=== PATIENT | male | born 1930 | race Caucasian/White ===

== ENCOUNTER 2016-11-21 17:17 | Inpatient (IN) | payer MEDICARE, BC ==
[2016-11-21] MEDS ORDERED: Sodium Chloride 0.9% 100 ML IV SCH (18:00)
[2016-11-21] MEDS ORDERED: Sodium Chloride 0.9% 1,000 ML IV SCH ×2 (18:05→18:30)
[2016-11-21] MEDS ORDERED: Albuterol/Ipratropium 3.0-0.5 MG/3 ML Neb Soln NEB ONE (18:47)
[2016-11-21] MEDS ORDERED: Albuterol/Ipratropium 3.0-0.5 MG/3 ML Neb Soln ONE (18:49)
[2016-11-21] MEDS ORDERED: Ondansetron 4 MG/2 ML SDV IV PRN (19:03)
[2016-11-21] MEDS ORDERED: Albuterol/Ipratropium 3.0-0.5 MG/3 ML Neb Soln INH PRN (19:05)
[2016-11-21] MEDS ORDERED: proTAMINE 250 MG/25 ML SDV IVPUSH SCH (19:45)
[2016-11-21] MEDS ORDERED: Pantoprazole 40 MG Vial IVPUSH ONE (19:49)
[2016-11-21] MEDS ORDERED: Hydrocortisone Sodium Succinate 250 MG/2 ML SDV IV ONE (19:49)
[2016-11-21] MEDS ORDERED: Hydrocortisone Sodium Succinate 100 MG/2 ML SDV IVPUSH ONE (20:01)
[2016-11-21] MEDS: Albuterol/Ipratropium 3.0-0.5 MG/3 ML Neb Soln NEB SCH (22:16)
[2016-11-22] MEDS: [UNRECOGNIZED DRUG - OTHER] EYEBOTH SCH ×3 (01:20→21:36)
[2016-11-22] MEDS: Albuterol/Ipratropium 3.0-0.5 MG/3 ML Neb Soln NEB SCH ×4 (07:20→21:31)
[2016-11-22] MEDS ORDERED: PREDNISONE 20 MG PO SCH (08:00)
[2016-11-22] MEDS: Sodium Chloride 0.9% 1,000 ML IV SCH ×2 (08:38→18:43)
[2016-11-22] MEDS ORDERED: CYANOCOBALAMIN 1000 MCG PO SCH (09:00)
[2016-11-22] MEDS ORDERED: Aspirin 81 MG Tab.Chew**OWN MED PO SCH (09:00)
[2016-11-22] MEDS ORDERED: ATOVAQUONE PO SCH (09:00)
[2016-11-22] MEDS ORDERED: DIVALPROEX 125 MG PO SCH ×3 (09:00→09:05)
[2016-11-22] MEDS: methylPREDNISolone Sodium Succinate 125 MG/2 ML SDV IVPUSH SCH ×2 (09:40→18:00)
--- NOTE | 2016-11-22 11:51 | CR ---
INDICATION: Status post arrest. Pacemaker placement 2 weeks ago. Anterior chest wall bleed 2 weeks ago at surgical site. 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 Question aspiration. CHEST: An AP upright portable view of the chest 11/21/2016 was compared with and 10/30/2015, revealing patchy areas of central pneumonia and basilar pneumonia compatible with aspiration pneumonia. The dense infiltration seen on previous study of 11/04/2016 at the lower lung field on the left has improved somewhat with continued infiltrate in that area, however. No definite evidence of CHF is seen. Unipolar pacemaker lead is noted in place which is a new finding. The heart appears to be at the upper limits of normal in size. The aorta is slightly tortuous. Overlying EKG leads are noted. IMPRESSION: Findings are felt to be most compatible with aspiration pneumonia. There is some improvement in the degree of consolidation of the infiltrate at the lower lung field on the left, with new infiltrate in the upper and middle lung field on the right. MTDD
[2016-11-22] MEDS ORDERED: ESCITALOPRAM 10 MG PO SCH (12:00)
[2016-11-22] MEDS: cefTRIAXone 1 GM in Sodium Chloride 0.9% 50 ML IV SCH (14:55)
[2016-11-22] MEDS: metroNIDAZOLE/Normal Saline 500 MG in Premix Bag 1 BAG IV SCH ×2 (16:15→23:56)
[2016-11-22] MEDS: Pantoprazole 40 MG Tab.CR PO SCH ×2 (17:13→17:14)
[2016-11-22] MEDS ORDERED: Simvastatin 40 MG Tab *PTOM PO SCH (21:00)
[2016-11-22] MEDS: LORazepam 2 MG/ML MDV IVPUSH PRN (21:36)
--- NOTE | 2016-11-22 21:57 | HP ---
ADMISSION DATE: 11/21/2016 CHIEF COMPLAINT: Dysphagia with some mild hypoxemia. HISTORY OF PRESENT ILLNESS: This patient is an 86-year-old male with a previous history of chronic anxiety, depression, gastroesophageal reflux, and hypertension who was admitted after being seen in the emergency room with the above chief complaint. The patient has a rather interesting history, recently he developed some atrial fibrillation with a rapid ventricular response. He was cardioverted and was started on amiodarone and discharged home. Shortly thereafter, he went into cardiac and respiratory arrest. Apparently, ambulance was called, he was found to be in ventricular fibrillation and shocked x1. He presented to the emergency room and was transferred to the [facility] in [place] to his prime minister again. He then developed rather significant hypoxia had to be intubated and they felt that he was having lung toxicity from the amiodarone and was discontinued, and started on prednisone and Atovaquone. They also put a defibrillator in and started him on a beta yaritza. He was eventually extubated and the above-mentioned procedure drawn and he was discharged recently from the hospital. He has, however, had problems with a recurrent dysphagia and gastroesophageal reflux. He has been seen by Gastroenterology and recently [facility] Th[facility]. Apparently, he has had some Botox injections done in the past and recently had a cricomyotomy via Ear, Nose, and Throat. He apparently had good relief and was doing quite well until the last 2 days, noticed a progressive increase in inability to swallow. He said that on the day of admission he was not able to swallow at all. He had been seen in [place] by Cardiology at [facility] and they did not think dimension. When he returned, he was having difficulty even swallowing water and presented to the emergency room for evaluation. While there, chest x-ray was done, showing significant infiltrates in the right lung and seemed to be a resolving infiltrate in the left lung compared to previous x-rays done in October. They were concerned about aspiration pneumonia. He did have some mild hypoxia that improved with oxygen and a normal white count, however, because of the dysphagia and the above-mentioned findings, they felt hospitalization was appropriate and he was admitted. He denies any hemoptysis, hematemesis, or hematuria. He has had no chest pain. He apparently developed rather significant swelling and ecchymosis in the left chest area from his pacemaker placement and has been off anticoagulants because of that. He has had no further bleeding difficulties. His last INR apparently was elevated and he was to have one done today. His says that he has had problems with recurrent hyponatremia in the past and apparently he was taking mirtazapine during his last hospitalization in [facility], because of low sodium they discontinued it and switch him over to Lexapro, apparently the hyponatremia had resolved by the time he was discharged. No significant weight loss has been noted. His appetite previous to this had been quite good. He has had no other complaints or concerns. MEDICATIONS: Include; 1. Atovaquone 1500 mg daily. 2. Depakote 125 mg daily. 3. Lexapro 10 mg daily. 4. Metoprolol 25 mg one half tablet b.i.d. 5. Protonix 40 mg daily. 6. Prednisone 60 mg daily. 7. He takes Restasis eyedrops one drop in each eye b.i.d. 8. Cyanocobalamin 1000 mcg daily. 9. He is also on aspirin 81 mg daily. 10.DuoNeb q.i.d. p.r.n. 11.He is supposed to be on warfarin, he took his last dose on Monday at 2.5 mg, but had not taken any for sometime. 12.He takes a multivitamin daily. 13.Simvastatin 20 mg at bedtime. ALLERGIES: Apparently, the amiodarone and sulfa. SOCIAL HISTORY: He quit smoking 40 years ago. He uses alcohol rarely. PAST MEDICAL HISTORY: Other than that mentioned above includes upper GI endoscopy in 2010. He has had a previous tonsillectomy when he was quite young and hemorrhoid surgery many years ago. He has had a previous TUR of the prostate. He has had a number of colonoscopies last of which was in 2013 where he had a polypectomy done. He does have known diverticulosis without a previous history of diverticulitis. He has a longstanding history of depression and anxiety along with the recurrent hyponatremia as noted above. FAMILY HISTORY: Both parents have . The father in his 90s from old age. Mother in her 70s. He had 7 sisters and 1 brother. Brother from drinking too much. Three sisters have had of pulmonary disease. REVIEW OF SYSTEMS: Review of systems was discussed. Other than that mentioned above was unremarkable. PHYSICAL EXAMINATION: VITAL SIGNS: At this time, showed him to be afebrile. Initial blood pressure when he arrived in the emergency room was 172/74, pulse is 61 and regular, respirations were 19, O2 saturation on 4 L was 95%. GENERAL: Well-developed, well-nourished male who appears to be somewhat confused, but in no acute distress. HEENT: Head was normocephalic and atraumatic. Pupils are round, reactive to light and accommodation. Extraocular movements were intact. Sclerae and conjunctivae were clear. He has intraocular lenses bilaterally. TMs are both clear. Nasal passages were open without discharge. Pharynx and palate were unremarkable. There is no evidence of excessive secretions in his mouth and he is not spitting. He seems to swallow secretions quite normally when distracted. NECK: Supple. There is no jugular venous distention. I was unable to identify any neck masses. The trachea appears to be midline without excessive swelling or tenderness. Carotid pulses strong and equal without bruits. BACK: Straight. No deformities are noted. No spinous process tenderness was noted. CHEST: Revealed coarse upper airway rhonchi throughout both lung rehman. More so on the right than on the left. No expiratory wheezes. No retractions were noted at this time. No chest wall tenderness was noted, except on the left side where he has significant ecchymoses. There is swelling around the pacemaker battery in the left subclavian space with ecchymoses noted. There it is somewhat fluctuant, but without erythema or warmth. CARDIOVASCULAR: Revealed a normal S1 and S2 with a systolic ejection murmur heard best at the right upper sternal border. ABDOMEN: Soft. No specific point tenderness. There was no rebound or rigidity. Bowel sounds are present. No bruits are noted. No incisional scars were identified. EXTREMITIES: Without clubbing, no edema. No ulcerations or areas of breakdown. Mild fusiform. Swelling of the knees was noted without effusion, erythema, or warmth. NEUROLOGIC: He was mildly confused. He asked the same questions repeatedly. He knew he was in the hospital, could remember my name. Could tell me the month, but missed the year by one, could not tell me the day or date. LABORATORY DATA: Initial CBC when he arrived showed his hemoglobin to be 8.9, hematocrit 26.3, MCV was 90.1. His white count was 7600, with 97 segs, 1 lymphs, 2 monos. No bands were noted. Platelets were 163,000. ProTime INR was 3.15. His D-dimer was normal at 390. Blood gas showing a pH of 7.5, pCO2 of 36, PO2 of 66, bicarbonate 28. Sodium was 121, potassium of 4.4, chloride of 89, CO2 was 28, BUN is 18, creatinine 0.6, glucose 135, but it was random. Calcium was 8. Phosphorus was 2.5. Magnesium was a bit low at 1.6. Total bilirubin 1.6, AST of 31, ALT of 46, alkaline phosphatase was normal at 75, creatine kinase was low at 30, troponin was normal at 0.03. BNP was slightly elevated at 422. Total protein was 5.8, albumin of 3.1. Chest x-ray as noted above. EKG showed basically a sinus rhythm, no paced beats were identified. His rate was 58. There was no ST-segment changes indicative of ischemia. There is some poor R-wave progression anteriorly, but there was evidence of right ventricular hypertrophy. No acute changes were otherwise identified. IMPRESSION: 1. New onset of dysphagia of undetermined etiology. The patient, however, seems to be handling his secretions quite well, and at this time infiltrates are quite well. However, the infiltrates in his chest do indicate the possibility of aspiration pneumonia. His white count, however, is normal. He is afebrile. He is mildly hypoxic, but it is difficult to know whether possibly secondary to the previous amiodarone toxicity or not. 2. History of atrial fibrillation, currently in sinus rhythm. With a previous history of cardiac arrest and pacemaker placement. Again this may all be secondary to recent atrial fib and the amiodarone was given, he now appears to be in sinus and I do not see any paced beats at all, wondering if this was not a defibrillator that was placed rather than a pacemaker. 3. Hyponatremia, this seems to be a chronic recurrent problem possibly secondary to his medications. The emergency room physician talked to the family about the possibility of this being from his pituitary. I doubt that his electrolytes do not really support it, but apparently a morning serum cortisol has been ordered. 4. History of gastroesophageal reflux. 5. Previous history of depression and anxiety. I have talked to the patient's physician here in town. He apparently is a chronic water drinker, may be compulsive. We should be able to evaluate this fairly easily. PLAN: At least at this point, we need to concentrate on the patient's respiratory status. Oxygen is appropriate to maintain his hydration. We will keep him n.p.o. Started him on Protonix. I think until otherwise confirmed, when I cover him for aspiration pneumonia with an IV antibiotics and will get his sodium back up to where it should be with sodium replacement therapy and small doses of furosemide. I have a call into [facility] and will see what they say about his previous cricomyotomy and we will see if we can get a swallowing eval or may be esophagram done in the near future, but will wait and see. /[id number] /CHERISE
[2016-11-23] MEDS: methylPREDNISolone Sodium Succinate 125 MG/2 ML SDV IVPUSH SCH ×3 (01:50→17:44)
[2016-11-23] MEDS: Sodium Chloride 0.9% 1,000 ML IV SCH ×2 (03:49→14:55)
[2016-11-23] MEDS: Albuterol/Ipratropium 3.0-0.5 MG/3 ML Neb Soln NEB SCH ×4 (07:05→20:51)
[2016-11-23] MEDS: metroNIDAZOLE/Normal Saline 500 MG in Premix Bag 1 BAG IV SCH ×3 (08:45→23:48)
[2016-11-23] MEDS: [UNRECOGNIZED DRUG - OTHER] EYEBOTH SCH (08:50)
[2016-11-23] MEDS: LORazepam 2 MG/ML MDV IVPUSH PRN ×2 (12:23→20:53)
[2016-11-23] MEDS ORDERED: Pantoprazole 40 MG Vial IVPUSH ONE (12:28)
[2016-11-23] MEDS ORDERED: Metoprolol Tartrate 5 MG in Sodium Chloride 0.9% 50 ML IV SCH (12:30)
[2016-11-23] MEDS ORDERED: Iopamidol 755 Mg/ML 75 ML Bottle IV ONE ×2 (13:22→13:37)
[2016-11-23] MEDS: Metoprolol Tartrate 5 MG/5 ML SDV IVPUSH SCH ×3 (13:55→20:51)
[2016-11-23] MEDS: cefTRIAXone 1 GM in Sodium Chloride 0.9% 50 ML IV SCH (14:02)
--- NOTE | 2016-11-23 14:11 | CR ---
INDICATION: Dysphagia. SWALLOWING FUNCTION WITH VIDEO: 2 minutes 39 seconds videofluoroscopy time with DVD recording and various barium -tinged meals were utilized in evaluating the swallowing mechanism. The patient apparently has difficulty with initiating the swallowing mechanism. There is marked retention of materials within the valleculae as well as the piriform sinuses. Penetration occurred from the retained materials in the valleculae. Continued retention was present at the end of the examination. The piriform sinuses are asymmetrically large, apparently on the left, as previously, giving the appearance of a diverticulum. No Zenker's diverticulum is identified. MTDD
--- NOTE | 2016-11-23 14:30 | PN ---
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 He was admitted with what appeared to be an aspiration pneumonia versus the amiodarone lung toxicity and resultant hypoxemia. Cultures have been obtained. He was started on IV antibiotics for a presumed aspiration as he continued to complain of inability to swallow and spitting episodes. He also found to be significantly hyponatremic and hypomagnesemic, although that seems to have improving. He had a good night. He coughed up a large amount of mucus and says he feels considerably better. His white count was resizing last night, but his sodium was gradually improving. He seems to be less confused today and denies any pain. He has had no fever or chills. He said he slept relatively well. There has been no nausea or vomiting. He denies any other discomfort. Medications were reviewed. OBJECTIVE: GENERAL: He appears to be quite comfortable at this time and in no acute distress. VITAL SIGNS: Afebrile. Blood pressure today was 167/80, pulse is 89 and regular, respirations are 28, O2 saturation is 91-94% and he is on 11 L/minute via mask. HEENT: Unremarkable. Mucous membranes are pink and moist. Thyroid was not enlarged. Trachea is midline. No palpable masses were noted in and about the neck. CHEST: Revealed right side rhonchi and rales to be improved somewhat. The left side still has upper airway rhonchi and a few rales at the bases. No retractions were noted. CARDIOVASCULAR: Revealed a normal S1 and S2 and at this time, his rhythm is regular. ABDOMEN: Soft, somewhat obese, but nontender without organomegaly or masses. Bowel sounds are normal. EXTREMITIES: Showed no clubbing or edema. No ulcerations or areas of breakdown. LABORATORY DATA: Lab today revealed his white count down to 6500; his hemoglobin has dropped to 7.7, but we have been hydrating him; platelets were 112,000. He has 91 segs, 2 bands, 3 monos, 3 eosinophils are still in moderate amount of toxic granulation. His INR is up to 2.86. Sodium is up to 127, potassium of 4.0, creatinine is 0.6, BUN of 18. IMPRESSION: 1. Probable aspiration pneumonia with dysphagia of undetermined etiology. 2. Conversion of atrial fibrillation, complicated by what appeared to be amiodarone toxicity. Respiratory and cardiac arrest with placement of an automatic defibrillator. 3. Hyponatremia, improving. 4. Previous history of anxiety and depression. PLAN: We will continue his IV normal saline, and watch his sodium. Continue the IV antibiotics for his presumed aspiration and respiratory therapy will be continued. Await the results of the swallowing evaluation today, and we will proceed from there. /[id number] /MODL
--- NOTE | 2016-11-23 15:47 | CT ---
INDICATION: Severe dysphagia. CT SOFT TISSUE NECK: Spiral 2.5-mm axial sections were obtained through the neck with sagittal and coronal reconstructions and 75 mL Isovue-370 at 2 mL per second. Pleuroparenchymal changes are noted in the upper lung rehman visualized , compatible with pneumonia and pleuritis, or possibly pulmonary edema and CHF - correlate clinically. The patulous airway is noted with particularly prominent piriform sinus on the left, compared with the right. Retained contrast is noted in the piriform sinuses and also to a lesser extent in the valleculae. Calcified plaques are noted in the carotid arteries with areas of stenosis, perhaps greater than 50%, especially on the left in the internal carotid artery. No definite mass lesion was identified - no focal impingement by a mass is seen in the neck with special attention to the pharyngeal area. Report was given in person to Dr. Porter at approximately 1418 hours, 11/23/2016. DARRICK
[2016-11-23] MEDS: cycloSPORINE Ophth Drops U/D Box of 30 EYEBOTH SCH (20:52)
[2016-11-24] MEDS: Sodium Chloride 0.9% 1,000 ML IV SCH ×2 (00:56→08:57)
[2016-11-24] MEDS: Metoprolol Tartrate 5 MG/5 ML SDV IVPUSH SCH ×4 (01:00→13:16)
[2016-11-24] MEDS: LORazepam 2 MG/ML MDV IVPUSH PRN ×2 (01:45→12:21)
[2016-11-24] MEDS: methylPREDNISolone Sodium Succinate 125 MG/2 ML SDV IVPUSH SCH ×2 (02:40→10:37)
[2016-11-24] MEDS: Albuterol/Ipratropium 3.0-0.5 MG/3 ML Neb Soln NEB SCH ×2 (07:06→10:47)
[2016-11-24] MEDS ORDERED: Furosemide 40 MG/4 ML VIAL IVPUSH ONE (08:40)
[2016-11-24] MEDS: cycloSPORINE Ophth Drops U/D Box of 30 EYEBOTH SCH (09:04)
[2016-11-24] MEDS: metroNIDAZOLE/Normal Saline 500 MG in Premix Bag 1 BAG IV SCH (09:08)
[2016-11-24 11:25] VITALS: BP 153/61
--- NOTE | 2016-11-24 11:46 | PN ---
DATE SEEN: 11/24/2016 SUBJECTIVE: This is an 86-year-old gentleman with a history of what appears to be aspiration pneumonia, hyponatremia, and swallowing difficulties, is seen today for followup. He said he had a restful night, has really no complaints or concerns. No pain has been noted. His oxygen saturations are in the 90s, but he is still requiring a rebreather mask. He has not had much cough, some peripheral edema has been noted recently. He is still not able to swallow. OBJECTIVE: GENERAL: He appears to be comfortable, in no acute distress, remains afebrile. VITAL SIGNS: Pulse is 82 and regular, blood pressure 152/74, respirations are 28, O2 saturation is 86% on a rebreather. HEENT: Unremarkable. NECK: There is no jugular venous distention. LUNGS: He still has coarse rhonchi throughout both lung rehman with some basilar crackles. No retractions, no significant tachypnea. CARDIOVASCULAR: Reveals a normal S1 and S2 without murmur, rub, or gallop. ABDOMEN: Unremarkable. EXTREMITIES: He has a trace to 1+ edema in his upper extremities and lower extremities, but no calf pain, swelling, or tenderness. NEUROLOGIC: He still is mildly confused. Repeats his questions intermittently, but no focal neurologic deficits have been noted. LABORATORY DATA: His hemoglobin is 7.5, hematocrit of 22.2, white count is down to 8500, platelets are 115,000. His Protime INR was 3.43, and he has not had any Coumadin since Monday, and at that time, he had 2.5 mg. He still has a left shift on differential with 96 segs, 1 band, 2 lymphocytes, and 1 mono. Sodium is up to 130, potassium at 3.8, creatinine is down to 0.5, BUN of 21. Has a mild elevation in bilirubin at 1.5, AST was 30, ALT of 35. Total protein 5.2, albumin of 2.8. IMPRESSION: 1. Persistent swallowing difficulties with swallowing evaluation that shows no swallowing movement at all and a CT scan of his neck that was negative. Rule out cerebrovascular accident as an etiology. 2. 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 3. Previous history of atrial fibrillation, currently converted with a history of ablation and a pacemaker/defibrillator placement. 4. History of chronic anxiety with recurrent hyponatremia. PLAN: We discussed treatment options with the family. NG tube feeding has been recommended by Dr. Wolf and I agree. When presented to the family, they are quite concerned about this. I also talked about needing an MRI for evaluation for stroke, but apparently, we are not able to do it here at the hospital because of his defibrillator placement. They have requested transfer to [place], and I agree. I have talked to [facility] in [place], and they agreed to accept the patient as a transfer. Dr. Hernandez will be accepting the patient and will proceed with treatment there. /[id number] /CHERISE
--- NOTE | 2016-11-25 03:47 | DISCH ---
DISCHARGE DATE: 11/24/2016 DATE OF TRANSFER: 11/24/2016 REASON FOR ADMISSION: This is a 86-year-old male with a previous history of chronic anxiety and depression, gastroesophageal reflux, hypertension, and recent atrial fibrillation that had been converted with eventual cardiac arrest requiring pacemaker and defibrillator placement, was admitted with increasing dysphagia and hypoxia. He apparently had been unable to swallow even water per day prior to admission and presented to the emergency room. Chest x-ray was done showing significant infiltrates bilaterally indicative of possible aspiration pneumonia with significant hypoxia. He continued to have difficulty swallowing, in fact was unable to swallow anything and therefore was admitted for more aggressive therapy. Please see a copy of his H and P for further details. Initial hemoglobin was 8.9, hematocrit of 26.3, white count of 7600. He had a left shift. His INR was 3.13. On 8 L, his pH was 7.5, pCO2 was 36, pO2 was 66, and bicarbonate was 28. Sodium 121, potassium of 4.4, CO2 was 28, chloride was 89. His creatinine 0.6, BUN of 18. Mild elevation in the liver functions. Magnesium was 1.6. BNP was 422. Total protein 5.8, albumin of 3.1. Chest x- ray as noted above. EKG revealed sinus rhythm at a rate of 58 beats per minute. He had evidence of some right ventricular hypertrophy, but no acute ST-T segment changes indicative of ischemia. No paced beats could be identified. HOSPITAL COURSE: The patient was admitted because of evidence of aspiration. Cultures were obtained. He was started on methylprednisolone 125 mg IV q.8 hours along with metronidazole 500 mg IV q.8 hours and ceftriaxone 1 g IV q.24 hours. He was also placed on Protonix 40 mg IV daily and aggressive respiratory therapy with DuoNeb q.i.d. and p.r.n. the patient had no Coumadin given and his INR was followed. Oxygen was placed to keep his saturations greater than 90%. Because of his inability to swallow, he was kept n.p.o. and had the bed of his elevated. The following day, we did a swallowing evaluation to see if in fact he would not swallow anything. Apparently with initial swallow was some material going into the esophagus, but thereafter he would not swallow at all and all of the material collected in the vallecula and the vestibule in the hypopharynx. This was then suctioned out and a CT scan of his neck was done after consulting with his [facility] N[facility], and Throat doctor to make sure there is no occult infection or mass. This was read as negative. His hyponatremia was corrected with IV normal saline and improved to sodium of 130, potassium of 3.8. Creatinine remained stable at 0.5, BUN at 21. His INR with the antibiotic remington to 3.43. His hemoglobin dropped to 7.5. His initial anemia was thought to be secondary to large hematoma especially in the chest area around his pacemaker defibrillator. The drop in hemoglobin was attributed to rehydration. His cough improved, saturations remain unchanged, and because of the inability to swallow along with the above-mentioned and other problems, transfer to [place] was recommended. Consult with the [facility] in [place] was obtained and they agreed to accept him. He will be discharged there for further therapy. FINAL DIAGNOSIS: 1. Acute aspiration pneumonia with resultant hypoxemia. 2. Inability to swallow of undetermined etiology. 3. Hyponatremia, improved. 4. History of atrial fibrillation and possible amiodarone toxicity, complicated by previous cardiac arrest and pacemaker defibrillator insertion with resultant hematoma on the left chest and anemia. 5. History of chronic anxiety and recurrent hyponatremia thought to be secondary to his serotonin reuptake inhibitors. 6. History of hypertension. DISCHARGE DISPOSITION: He was discharged per ambulance to [facility] where further evaluation and treatment will be accomplished. /[id number] /CHERISE
--- NOTE | 2016-11-25 09:47 | ER ---
DATE SEEN: 11/21/2016 TIME SEEN: The patient was seen at 0521 hours. CHIEF COMPLAINT: Difficulty swallowing. 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 In October of 2015, he had dilation of esophagus and Botox shots. The resolution of his odynophagia and dysphagia persisted through May of 2016. On August 23, he had a cricopharyngotomy performed by Dr. Wolf, ENT, [facility]. On 10/04/2016, the patient had a cardioversion for atrial fibrillation and was placed on 800 mg of amiodarone a day. This resulted in severe complications. This was consequently decreased slowly, discontinued altogether, and replaced by another agent, atovaquone 10 mg. On 10/30/2016 through 11/04/2016, the patient was hospitalized again, and pacemaker and ICD were placed. On 11/19/16, he had onset (2 days ago) of difficulty swallowing, odynophagia, and dysphagia. He had a" terrible time getting my pills down" and was unable to eat. He has been drinking small sips of water, but sometimes even the water will come up. He did have a protein supplement drink but would not swallow it. On 11/20/16, the patient had onset of confusion. His felt this was a recurrence of the confusion that he seems to have every time he has low sodium. "Every time the sodium goes down, he gets confused." The patient has not had food for 2 days. He had a half a bottle of Ensure this morning, most of it vomited up. There is a strong concern for aspiration. The patient continues to use warfarin. PAST MEDICAL HISTORY: Dyslipidemia; atrial fibrillation, treated with Coumadin since 2015; GERD; dysphagia with cricopharyngotomy (I discussed the patient's status with Dr. Wolf); seizures; pernicious anemia; dilation of esophagus; cardioversion; pacemaker placement; ICD placement; decreased hearing. PHYSICAL EXAMINATION: GENERAL: The patient is communicative. He has extensive ecchymosis of left chest over the very prominent pacemaker site. HEENT: PERRLA, intact. No masses in the neck. Pharynx without erythema. It is dry. Mucosa dry. VITAL SIGNS: Blood pressure, see chart; heart rate 58.LUNGS rale in lungs bilaterally ABDOMEN: no guarding , abdomen is soft , bowel sound noted. EXTREMITIES: No edema. no linear vascular tenderness. NEURO: DTR'S hypoactive, uvula midline, gag in plale, shrugs shoulder. CN 2-10 intact but decreased hearing. No past pointing, no dysmetria, no pronator drift. DATA REVIEWED: No evidence for atrial fibrillation. Prolonged MO interval. RSR prime in V1, V2, possible RVH or right VCD. Nonspecific ST changes. Chest x-ray: Interstitial infiltrate noted in the lungs. LABORATORY STUDIES: White count 7,600, PMNs 97, bands negative, lymphs 1, monos 2. Arterial blood gas pH of 7.50, pCO2 of 36, pO2 of 66, bicarb 28, oxygen saturation 95%, base excess 4.5. Sodium has serially progressively gone down since 10/06/2016 from 127 to 128 on 11/04/2016, and today it is 121 with associated hypochloremia, going from 92 to 89. BUN/creatinine ratio 30, suggests severe dehydration. Creatinine 0.6, BUN 18. GFR greater than 60. Calcium low at 8.0, magnesium low at 1.6, bilirubin 1.6, AST 31, ALT 46. Troponin 0.03. BNP 422. Albumin low, at 3.1; protein low at 5.8. TSH not performed today. ASSESSMENT: 1. Interstitial pneumonia, aspiration pneumonia. 2. Hyponatremia, rule out adrenal insufficiency from chronic use of steroids. 3. Hyponatremia and hypochloremia, chronic, rule out salt-losing nephropathy. 4. Elevated enzymes with mild hepatitis. 5. Hypoxia with tachypnea, compensated with respiratory alkalosis. 6. No tightness. 7. No evidence for myocardial infarction. 8. No evidence of congestive heart failure. 9. Hypomagnesemia, low phosphorus, etiology indeterminate, possibly secondary to decreased p.o. intake. Patient Status: Needs to be admitted for acute care. Status discussed with Dr. Wolf. At present, admit for observation and hydration. Start antibiotic therapy. Protonix IV, Zofran 4 mg IV, plus 1000 mL normal saline, DuoNeb, start antibiotics. The patient admitted to Dr. Porter's service. Status discussed with Say. No beds available. The patient admitted for treatment of aspiration pneumonia. /[id number] ANGELICA/CHERISE [place]
--- NOTE | 2016-11-28 14:49 | ER ---
DATE SEEN: 11/21/2016 ADDENDUM: Cortisone level 4.4 mcg (2.7-18.4). Aldosterone 10.8 ng/dL (less than 39). This suggests the patient has normal renal function and perhaps a low normal aldosterone may have something to do with his low sodium. /[id number] ANGELICA/CHERISE
== END 2016-11-24 12:30 | DRG 178 ==
LOC: FB.ED 17:17 → FB.MS 18:53 → FB.ED 18:55 → FB.MS 18:58 → OBSVTOIN 11-23 11:39
PROVIDERS: ADMIT Emergency Medicine; ATTEND Family Medicine
DX: J69.0 Pneumonitis due to inhalation of food and vomit (principal); E87.1 Hypo-osmolality and hyponatremia; K75.9 Inflammatory liver disease, unspecified; F41.8 Other specified anxiety disorders; E83.42 Hypomagnesemia; K21.9 Gastro-esophageal reflux disease without esophagitis; I10 Essential (primary) hypertension; I48.91 Unspecified atrial fibrillation; Z95.0 Presence of cardiac pacemaker; Z79.01 Long term (current) use of anticoagulants; Z79.82 Long term (current) use of aspirin; Z79.52 Long term (current) use of systemic steroids; Z87.891 Personal history of nicotine dependence; R09.02 Hypoxemia; R06.82 Tachypnea, not elsewhere classified
CPT/HCPCS: 36415 ×3; 36600; 71010; 74230; 80048 ×2; 80053; 82088; 82533; 82550; 82803; 83735; 83880; 84100; 84484; 85025 ×4; 85379; 85610 ×3; 93005; 94150 ×2; 94640 ×6; 96361 ×4; 96365; 96366; 96367; 96375 ×2; 96376 ×2; 99284; A9270 ×2; C9113; G0378 ×2; J0696; J1720; J2060; J2930 ×4; J7040 ×4; J7050; J7620 ×8; 70491; 71020; 92611-GN; 96374; J1940; J3490; Q9967

== ENCOUNTER 2016-12-02 08:14 | Inpatient (IN) | payer MEDICARE, BC ==
[2016-12-05] MEDS ORDERED: Docusate Sodium Liquid 50 MG/5 ML ML 473 ML Bottle GTUBE PRN (17:15)
[2016-12-05] MEDS ORDERED: diphenhydrAMINE 12.5 MG/5 ML Liquid ML (473 ML Bottle) GTUBE PRN (17:15)
[2016-12-05] MEDS ORDERED: Acetaminophen 500 MG Tab GTUBE PRN (17:15)
[2016-12-05] MEDS ORDERED: OMEPRAZOLE 20 MG GTUBE SCH (21:00)
[2016-12-05] MEDS ORDERED: Simvastatin 40 MG Tab GTUBE SCH (21:00)
[2016-12-05] MEDS: Amoxicillin/Clavulanate K 875-125 MG Tab GTUBE SCH (21:33)
[2016-12-05] MEDS: Valproic Acid 250 MG/5 ML Syrup ML (473 ML Bottle) GTUBE SCH (21:34)
[2016-12-05] MEDS ORDERED: diphenhydrAMINE 12.5 MG/5 ML Liquid ML (473 ML Bottle) PO ONE (21:38)
[2016-12-05] MEDS: Melatonin 3 MG Tab GTUBE SCH (22:00)
[2016-12-06] MEDS: predniSONE 20 MG Tab GTUBE SCH (08:52)
[2016-12-06] MEDS: Amoxicillin/Clavulanate K 875-125 MG Tab GTUBE SCH ×2 (08:52→20:46)
[2016-12-06] MEDS: Escitalopram 10 MG Tab GTUBE SCH (08:52)
[2016-12-06] MEDS: Phytonadione 100 MCG Tab PO SCH (08:53)
--- NOTE | 2016-12-06 09:18 | PCM.HP ---
H&P History of Present Illness - General Date of Service: 12/06/16 Admit Problem/Dx: Admission Diagnosis/Problem Admission Diagnosis/Problem Pneumonia Source of Information: Patient, Family, Old records - History of Present Illness Initial Comments - Free Text/Narative: This is an 86-year-old male that was admitted from [facility] for rehabilitation. He was admitted there for respiratory distress , due to amiodarone. He needed up to 15 L of oxygenation but is now down to only 2 L. He also had a.GI bleed, a normal upper endoscopy except for gastritis. He also has a fibrillation he takes Coumadin. He complains of feeling generally weak and able to ambulate independently hence the need for sitting bed admission for physical strengthening. During the hospital admission, he has problems with insomnia, eventually needing Benadryl to help sleep. He is a severely depressed and keeps ruminating about . He has hypertension that is stable , and dysphagia for which no cause was identified. He had a PEG tube placed for feeding. During that hospital stay, pneumonia was identified and treated appropriately, he would be finishing a course of Augmentin for 5 days in this admission. - Related Data Allergies/Adverse Reactions: Allergies Allergy/AdvReac Type Severity Reaction Status Date / Time amiodarone Allergy Cardiac Verified 12/05/16 16:54 Arrest Sulfa (Sulfonamide Allergy Hives Verified 12/05/16 16:54 Antibiotics) Home Medications: Home Meds Atovaquone 1,500 mg GTUBE DAILY 11/21/16 [History] Escitalopram [Lexapro] 10 mg GTUBE DAILY 11/21/16 [History] Prednisone [IJD: predniSONE] 40 mg GTUBE DAILY 11/21/16 [History] Warfarin Sodium [Jantoven] 2.5 mg GTUBE ASDIRECTED 11/21/16 [History] Simvastatin [Zocor] 20 mg GTUBE BEDTIME 11/22/16 [History] Acetaminophen [Mapap] 500 mg GTUBE Q4H PRN 12/05/16 [History] Amoxicillin/Clavulanate K [Augmentin 875-125 MG] 1 tab GTUBE BID 12/05/16 [ History] Docusate Sodium [Docu Liquid] 100 mg GTUBE BID PRN 12/05/16 [History] Melatonin 12 mg GTUBE BEDTIME 12/05/16 [History] Omeprazole Suspension 20 mg GTUBE BID 12/05/16 [History] Phytonadione [Vitamin K] 100 mcg GTUBE DAILY 12/05/16 [History] Sodium Chloride 0.9% [Saline Flush] 10 ml FLUSH DAILY 12/05/16 [History] Valproic Acid [Depakene Syrup] 125 mg GTUBE BEDTIME 12/05/16 [History] diphenhydrAMINE [Benadryl] 50 mg GTUBE BEDTIME PRN 12/05/16 [History] Past Medical History HEENT History: Reports: Hard of hearing, Other (see below) Other HEENT History: wears glasses Cardiovascular History: Reports: High cholesterol, Hypertension, Pacemaker, Other (see below) Other Cardiovascular History: New Atrial Fibrillation, dx Fall 2015, placed on Coumadin. Cardioversion 10/24/2016, cardiac arrest 11/07/2016, pacer/ICD placement 10/2016 Respiratory History: Reports: Other (see below) Other Respiratory History: Bilateral pneumonia dx 11/10/16 Gastrointestinal History: Reports: Gastritis, GERD, Other (see below) Other Gastrointestinal History: GASTRODUODENITIS; ACHALASIA OF THE CRICOPHARYNGEUS MUSCLE; DIVERTICULITIS Musculoskeletal History: Reports: Other (see below) Other Musculoskeletal History: WRIST ARTHRITIS Neurological History: Reports: Seizure, Other (see below) Other Neuro History: Experienced seizures several years ago, has been on Depakote. Psychiatric History: Reports: Depression Hematologic History: Reports: Other (see below) Other Hematologic History: PERNICIOUS ANEMIA - Infectious Disease History Infectious Disease History: Reports: Chicken pox, Measles, Mumps - Past Surgical History HEENT Surgical History: Reports: Laser surgery Other HEENT Surgeries/Procedures: DILATION OF ESOPHAGUS ;bilateral eyes, surgical enlargement of the upper esophagus(cricopharyngotomy) Cardiovascular Surgical History: Reports: AICD Other GI Surgeries/Procedures: hemorroidectomy; COLONIC POLYPS Social & Family History - Family History Family Medical History: Noncontributory - Tobacco Use Smoking Status *Q: Former Smoker Years of Tobacco use: 10 Packs/Tins Daily: 1 Used Tobacco, but Quit: Yes Month Tobacco Last Used: Sep 1949 Second Hand Smoke Exposure: No - Caffeine Use Caffeine Use: Reports: None - Alcohol Use Days Per Week of Alcohol Use: 7 Number of Drinks Per Day: 1 Total Drinks Per Week: 7 - Recreational Drug Use Recreational Drug Use: No H&P Review of Systems - Review of Systems: Review Of Systems: ROS reveals no pertinent complaints other than HPI. Exam - Exam Exam: See Below - Vital Signs Vital Signs: Last Vital Signs Temp Pulse Resp BP Pulse Ox 93 L 12/05/16 15:05 Weight: 80 kg - Patient Data Lab Results last 24 hrs: Laboratory Results - last 24 hr 12/06/16 Range/Units 06:52 PT 12.6 H (8.7-11.1) INR 1.24 H (0.89-1.13) *Q Meaningful Use (ADM) - VTE *Q VTE Criteria *Q: - Stroke *Q Stroke Criteria *Q: - AMI *Q AMI Criteria *Q: - Problem List (1) MDD (major depressive disorder) SNOMED Code(s): 357866396, 056259828 ICD Code: F32.9 - MAJOR DEPRESSIVE DISORDER, SINGLE EPISODE, UNSPECIFIED Status: Acute Current Visit: Yes Qualifiers: Active/Remission status: currently active (2) Dysphagia SNOMED Code(s): 66259973, 330151121 ICD Code: R13.10 - DYSPHAGIA, UNSPECIFIED Status: Acute Current Visit: No Qualifiers: Dysphagia type: oropharyngeal phase Qualified Code(s): R13.12 - Dysphagia, oropharyngeal phase (3) Pneumonia SNOMED Code(s): 996928953 ICD Code: J18.9 - PNEUMONIA, UNSPECIFIED ORGANISM Status: Acute Current Visit: No Problem Details: Start Rocephin and Azithromycin (4) HTN (hypertension) SNOMED Code(s): 95275150 ICD Code: I10 - ESSENTIAL (PRIMARY) HYPERTENSION Status: Chronic Current Visit: No Problem Details: Stable,continue meds Qualifiers: Hypertension type: essential hypertension Qualified Code(s): I10 - Essential (primary) hypertension (5) Afib, Atrial fibrillation SNOMED Code(s): 80613640 ICD Code: I48.91 - UNSPECIFIED ATRIAL FIBRILLATION Status: Resolved Current Visit: No Problem Details: He needs anticoagulation to prevent stroke.His PAPO score is 3 (6) Fatigue SNOMED Code(s): 22201105 ICD Code: R53.83 - OTHER FATIGUE Status: Resolved Current Visit: No Qualifiers: Fatigue type: chronic, unspecified Qualified Code(s): R53.82 - Chronic fatigue, unspecified (7) Amiodarone pulmonary toxicity SNOMED Code(s): 23091132 ICD Code: J98.4 - OTHER DISORDERS OF LUNG; T46.2X5A - ADVERSE EFFECT OF OTHER ANTIDYSRHYTHMIC DRUGS, INIT ENCNTR Status: Acute Current Visit: Yes (8) Insomnia SNOMED Code(s): 643673595 ICD Code: G47.00 - INSOMNIA, UNSPECIFIED Status: Acute Current Visit: Yes Qualifiers: Insomnia type: primary Qualified Code(s): F51.01 - Primary insomnia (9) Constipation SNOMED Code(s): 41570457 ICD Code: K59.00 - CONSTIPATION, UNSPECIFIED Status: Acute Current Visit : Yes Qualifiers: Constipation type: slow transit constipation Qualified Code(s): K59.01 - Slow transit constipation (10) Pacemaker pocket hematoma SNOMED Code(s): 303803882 ICD Code: T82.837A - HEMORRHAGE DUE TO CARDIAC PROSTH DEV/GRFT, INITIAL ENCOUNTER Status: Chronic Current Visit: Yes Qualifiers: Encounter type: subsequent encounter Qualified Code(s): T82.837D - Hemorrhage due to cardiac prosthetic devices, implants and grafts, subsequent encounter Problem List Initiated/Reviewed/Updated: Yes Orders Last 24hrs: Active Orders 24 hr Category Date Time Status Admission Status [Patient Status] [ADT] Routine ADT 12/05/16 13:14 Active Activity as Tolerated [RC] .Routine Care 12/05/16 15:01 Active Oxygen Therapy [RC] PRN Care 12/05/16 17:12 Active Tube Feeding [Enteral Feedings] [RC] Click to Edit Care 12/05/16 16:13 Active VTE/DVT Education [RC] Per Unit Routine Care 12/05/16 17:12 Active Vital Signs [RC] PER UNIT ROUTINE Care 12/05/16 17:12 Active Weight [Height and Weight] [RC] .qTue Care 12/05/16 16:16 Active OT Evaluation and Treatment [CONS] Routine Cons 12/05/16 15:01 Active PT Evaluation and Treatment [CONS] Routine Cons 12/05/16 15:01 Active Acetaminophen [Tylenol Extra Strength] Med 12/05/16 17:15 Active 500 mg GTUBE Q4H PRN Amoxicillin/Clavulanate K [Augmentin 875 MG/125 MG] Med 12/05/16 21:00 Active 1 tab GTUBE BID Atovaquone [Atovaquone] Med 12/06/16 09:00 Pending 1,500 mg GTUBE DAILY Docusate Sodium [Docu 50 MG/5 ML Liquid] Med 12/05/16 17:15 Active 100 mg GTUBE BID PRN Escitalopram [Lexapro] Med 12/06/16 09:00 Active 10 mg GTUBE DAILY Melatonin Med 12/05/16 21:00 Active 12 mg GTUBE BEDTIME Omeprazole 20 mg Med 12/06/16 09:00 Active Sodium Bicarbonate [Sodium Bicarbonate 8.4%] 10 meq PO BID Phytonadione [Vitamin K] Med 12/06/16 09:00 Active 100 mcg PO DAILY Simvastatin [Zocor] Med 12/06/16 21:00 Active 20 mg GTUBE BEDTIME Sodium Chloride 0.9% [Saline Flush] Med 12/06/16 09:00 Active 10 ml FLUSH DAILY Valproic Acid [Depakene Syrup] Med 12/05/16 21:00 Active 125 mg GTUBE BEDTIME Warfarin [Coumadin] Med 12/06/16 17:15 Pending 2.5 mg GTUBE ASDIRECTED diphenhydrAMINE [Benadryl] Med 12/05/16 17:15 Active 50 mg GTUBE BEDTIME PRN predniSONE Med 12/06/16 09:00 Active 40 mg GTUBE DAILY Resuscitation Status Routine Resus Stat 12/06/16 09:17 Ordered Medication Orders Acetaminophen (Tylenol Extra Strength) 500 mg GTUBE Q4H PRN PRN Reason: mild pain Amoxicillin/Clavulanate Potassium (Augmentin 875 Mg/125 Mg) 1 tab GTUBE BID ROBERT Last Admin: 12/06/16 08:52 Dose: 1 tab Admin: 12/05/16 21:33 Dose: 1 tab Omeprazole 20 mg/ Sodium (Bicarbonate 10 meq) 0 mg PO BID ROBERT Diphenhydramine HCl (Benadryl) 50 mg GTUBE BEDTIME PRN PRN Reason: Insomnia Last Admin: 12/05/16 21:38 Dose: 50 mg Docusate Sodium (Docu 50 Mg/5 Ml Liquid) 100 mg GTUBE BID PRN PRN Reason: Constipation Escitalopram Oxalate (Lexapro) 10 mg GTUBE DAILY ROBERT Last Admin: 12/06/16 08:52 Dose: 10 mg Melatonin (Melatonin) 12 mg GTUBE BEDTIME ROBERT Last Admin: 12/05/16 22:00 Dose: 12 mg Atovaquone [ (Atovaquone] 1,500mg) 1,500 mg GTUBE DAILY [facility] Phytonadione (Vitamin K) 100 mcg PO DAILY [facility] Last Admin: 12/06/16 08:53 Dose: 100 mcg Prednisone (Prednisone) 40 mg GTUBE DAILY [facility] Last Admin: 12/06/16 08:52 Dose: 40 mg Simvastatin (Zocor) 20 mg GTUBE BEDTIME [facility] Sodium Chloride (Saline Flush) 10 ml FLUSH DAILY [facility] Valproic Acid (Depakene Syrup) 125 mg GTUBE BEDTIME [facility] Last Admin: 12/05/16 21:34 Dose: 125 mg Warfarin Sodium (Coumadin) 2.5 mg GTUBE ASDIRECTED [facility] Assessment/Plan Comment:: We will admit him to swing bed, do vital signs routinely, and continue his home medications from [place]. Physical therapy and outpatient therapy consult and work with him towards strengthening and discharge planning.
[2016-12-06] MEDS: OMEPRAZOLE 20 MG PO SCH ×6 (10:20→20:57)
[2016-12-06] MEDS: Sodium Chloride 0.9% 10 ML Syringe FLUSH SCH (10:20)
[2016-12-06] MEDS: SODIUM BICARBONATE PO SCH ×6 (10:20→20:57)
[2016-12-06] MEDS: [UNRECOGNIZED DRUG - OTHER] EYEBOTH SCH ×2 (10:22→20:48)
[2016-12-06] MEDS: ATOVAQUONE 1500 MG GTUBE SCH (10:22)
[2016-12-06] MEDS ORDERED: diphenhydrAMINE 12.5 MG/5 ML Liquid ML (473 ML Bottle) GTUBE PRN (15:31)
[2016-12-06] MEDS ORDERED: Warfarin 2.5 MG Tab PO SCH (16:00)
[2016-12-06] MEDS ORDERED: Warfarin 2.5 MG Tab GTUBE SCH (17:15)
[2016-12-06] MEDS: Valproic Acid 250 MG/5 ML Syrup ML (473 ML Bottle) GTUBE SCH (20:46)
[2016-12-06] MEDS: Melatonin 3 MG Tab GTUBE SCH (20:47)
[2016-12-06] MEDS: Simvastatin 20 MG Tab GTUBE SCH (20:49)
[2016-12-07] MEDS: ATOVAQUONE 1500 MG GTUBE SCH (09:24)
[2016-12-07] MEDS: Amoxicillin/Clavulanate K 875-125 MG Tab GTUBE SCH ×2 (09:25→21:11)
[2016-12-07] MEDS: Escitalopram 10 MG Tab GTUBE SCH (09:25)
[2016-12-07] MEDS: predniSONE 20 MG Tab GTUBE SCH (09:26)
[2016-12-07] MEDS: Phytonadione 100 MCG Tab PO SCH (09:27)
[2016-12-07] MEDS: [UNRECOGNIZED DRUG - OTHER] EYEBOTH SCH ×2 (09:27→21:13)
[2016-12-07] MEDS: OMEPRAZOLE 20 MG PO SCH ×4 (09:28→21:21)
[2016-12-07] MEDS: SODIUM BICARBONATE PO SCH ×4 (09:28→21:21)
[2016-12-07] MEDS: Sodium Chloride 0.9% 10 ML Syringe FLUSH SCH (14:22)
[2016-12-07] MEDS ORDERED: Warfarin 2.5 MG Tab PO SCH (16:00)
[2016-12-07] MEDS ORDERED: Loperamide 1 MG/5 ML ML Solution 120 ML Bottle PO PRN (17:30)
[2016-12-07] MEDS ORDERED: Loperamide 2 MG Cap GTUBE PRN (20:40)
[2016-12-07] MEDS: Balsam Peru/Castor Oil/Trypsin Spray 56.7 GM Canister TOP PRN (21:05)
[2016-12-07] MEDS: Valproic Acid 250 MG/5 ML Syrup ML (473 ML Bottle) GTUBE SCH (21:10)
[2016-12-07] MEDS: Melatonin 3 MG Tab GTUBE SCH (21:12)
[2016-12-07] MEDS: Simvastatin 20 MG Tab GTUBE SCH (21:14)
[2016-12-08] MEDS: Balsam Peru/Castor Oil/Trypsin Spray 56.7 GM Canister TOP PRN ×2 (03:00→09:38)
[2016-12-08] MEDS: ATOVAQUONE 1500 MG GTUBE SCH (09:33)
[2016-12-08] MEDS: Amoxicillin/Clavulanate K 875-125 MG Tab GTUBE SCH (09:34)
[2016-12-08] MEDS: Escitalopram 10 MG Tab GTUBE SCH (09:35)
[2016-12-08] MEDS: predniSONE 20 MG Tab GTUBE SCH (09:36)
[2016-12-08] MEDS: [UNRECOGNIZED DRUG - OTHER] EYEBOTH SCH ×2 (09:36→20:22)
[2016-12-08] MEDS: Sodium Chloride 0.9% 10 ML Syringe FLUSH SCH (09:37)
[2016-12-08] MEDS: Phytonadione 100 MCG Tab PO SCH (09:38)
[2016-12-08] MEDS: Saccharomyces Boulardii (Probiotic) 250 MG Cap GTUBE SCH (09:43)
[2016-12-08] MEDS: SODIUM BICARBONATE PO SCH ×2 (09:43)
[2016-12-08] MEDS: OMEPRAZOLE 20 MG PO SCH ×2 (09:43)
[2016-12-08] MEDS: Loperamide 2 MG Tab GTUBE PRN (15:51)
[2016-12-08] MEDS ORDERED: Warfarin 5 MG Tab GTUBE SCH (16:00)
[2016-12-08] MEDS ORDERED: Warfarin 5 MG Tab PO SCH (16:00)
[2016-12-08] MEDS: Valproic Acid 250 MG/5 ML Syrup ML (473 ML Bottle) GTUBE SCH (20:23)
[2016-12-08] MEDS: Simvastatin 20 MG Tab GTUBE SCH (20:23)
[2016-12-08] MEDS: Melatonin 3 MG Tab GTUBE SCH (20:23)
[2016-12-08] MEDS: OMEPRAZOLE 20 MG GTUBE SCH ×2 (20:36)
[2016-12-08] MEDS: SODIUM BICARBONATE GTUBE SCH ×2 (20:36)
[2016-12-09] MEDS: ATOVAQUONE 1500 MG GTUBE SCH (08:05)
[2016-12-09] MEDS: [UNRECOGNIZED DRUG - OTHER] EYEBOTH SCH ×2 (08:11→20:45)
[2016-12-09] MEDS: Saccharomyces Boulardii (Probiotic) 250 MG Cap GTUBE SCH (08:12)
[2016-12-09] MEDS: Sodium Chloride 0.9% 10 ML Syringe FLUSH SCH ×2 (08:12→11:10)
[2016-12-09] MEDS: predniSONE 20 MG Tab GTUBE SCH (08:12)
[2016-12-09] MEDS: Phytonadione 100 MCG Tab SCH (08:12)
[2016-12-09] MEDS: Escitalopram 10 MG Tab GTUBE SCH (08:12)
[2016-12-09] MEDS: SODIUM BICARBONATE GTUBE SCH ×4 (09:15→20:46)
[2016-12-09] MEDS: OMEPRAZOLE 20 MG GTUBE SCH ×4 (09:15→20:46)
[2016-12-09] MEDS ORDERED: Warfarin 2.5 MG Tab GTUBE SCH (18:00)
[2016-12-09] MEDS: Melatonin 3 MG Tab GTUBE SCH (20:44)
[2016-12-09] MEDS: Valproic Acid 250 MG/5 ML Syrup ML (473 ML Bottle) GTUBE SCH (20:44)
[2016-12-09] MEDS: Simvastatin 20 MG Tab GTUBE SCH (20:45)
[2016-12-10] MEDS: ATOVAQUONE 1500 MG GTUBE SCH (08:05)
[2016-12-10] MEDS: Saccharomyces Boulardii (Probiotic) 250 MG Cap GTUBE SCH (08:05)
[2016-12-10] MEDS: SODIUM BICARBONATE GTUBE SCH ×4 (08:06→20:55)
[2016-12-10] MEDS: OMEPRAZOLE 20 MG GTUBE SCH ×4 (08:06→20:55)
[2016-12-10] MEDS: predniSONE 20 MG Tab GTUBE SCH (08:06)
[2016-12-10] MEDS: [UNRECOGNIZED DRUG - OTHER] EYEBOTH SCH ×2 (08:06→20:54)
[2016-12-10] MEDS: Phytonadione 100 MCG Tab SCH (08:06)
[2016-12-10] MEDS: Escitalopram 20 MG Tab GTUBE SCH (08:27)
[2016-12-10] MEDS: Warfarin 2.5 MG Tab GTUBE SCH (18:12)
[2016-12-10] MEDS: Valproic Acid 250 MG/5 ML Syrup ML (473 ML Bottle) GTUBE SCH (20:53)
[2016-12-10] MEDS: Melatonin 3 MG Tab GTUBE SCH (20:53)
[2016-12-10] MEDS: Simvastatin 20 MG Tab GTUBE SCH (20:55)
[2016-12-11] MEDS: ATOVAQUONE 1500 MG GTUBE SCH (08:27)
[2016-12-11] MEDS: Saccharomyces Boulardii (Probiotic) 250 MG Cap GTUBE SCH (08:28)
[2016-12-11] MEDS: Escitalopram 20 MG Tab GTUBE SCH (08:28)
[2016-12-11] MEDS: [UNRECOGNIZED DRUG - OTHER] EYEBOTH SCH ×2 (08:28→21:07)
[2016-12-11] MEDS: predniSONE 20 MG Tab GTUBE SCH (08:28)
[2016-12-11] MEDS: OMEPRAZOLE 20 MG GTUBE SCH ×4 (08:29→21:13)
[2016-12-11] MEDS: Phytonadione 100 MCG Tab SCH (08:29)
[2016-12-11] MEDS: SODIUM BICARBONATE GTUBE SCH ×4 (08:29→21:13)
[2016-12-11] MEDS: Warfarin 2.5 MG Tab GTUBE SCH (17:49)
[2016-12-11] MEDS: Valproic Acid 250 MG/5 ML Syrup ML (473 ML Bottle) GTUBE SCH (21:06)
[2016-12-11] MEDS: Melatonin 3 MG Tab GTUBE SCH (21:07)
[2016-12-11] MEDS: Simvastatin 20 MG Tab GTUBE SCH (21:08)
[2016-12-12] MEDS: ATOVAQUONE 1500 MG GTUBE SCH (08:55)
[2016-12-12] MEDS: Escitalopram 20 MG Tab GTUBE SCH (08:56)
[2016-12-12] MEDS: Saccharomyces Boulardii (Probiotic) 250 MG Cap GTUBE SCH (08:56)
[2016-12-12] MEDS: SODIUM BICARBONATE GTUBE SCH ×4 (08:57→20:02)
[2016-12-12] MEDS: OMEPRAZOLE 20 MG GTUBE SCH ×4 (08:57→20:02)
[2016-12-12] MEDS: predniSONE 20 MG Tab GTUBE SCH (08:58)
[2016-12-12] MEDS: [UNRECOGNIZED DRUG - OTHER] EYEBOTH SCH ×2 (08:59→20:04)
[2016-12-12] MEDS: Phytonadione 100 MCG Tab SCH (08:59)
[2016-12-12] MEDS: Loperamide 2 MG Tab GTUBE PRN (12:55)
[2016-12-12] MEDS ORDERED: Warfarin 3 MG Tab PO SCH (18:00)
[2016-12-12] MEDS: Valproic Acid 250 MG/5 ML Syrup ML (473 ML Bottle) GTUBE SCH (20:04)
[2016-12-12] MEDS: Simvastatin 20 MG Tab GTUBE SCH (20:04)
[2016-12-12] MEDS: Melatonin 3 MG Tab GTUBE SCH (20:04)
[2016-12-13] MEDS: [UNRECOGNIZED DRUG - OTHER] EYEBOTH SCH ×2 (09:47→21:03)
[2016-12-13] MEDS: Saccharomyces Boulardii (Probiotic) 250 MG Cap GTUBE SCH (09:56)
[2016-12-13] MEDS: ATOVAQUONE 1500 MG GTUBE SCH (09:56)
[2016-12-13] MEDS: Escitalopram 20 MG Tab GTUBE SCH (09:56)
[2016-12-13] MEDS: SODIUM BICARBONATE GTUBE SCH ×4 (09:57→21:05)
[2016-12-13] MEDS: OMEPRAZOLE 20 MG GTUBE SCH ×4 (09:57→21:05)
[2016-12-13] MEDS: Phytonadione 100 MCG Tab SCH (09:57)
[2016-12-13] MEDS: predniSONE 20 MG Tab GTUBE SCH (09:57)
[2016-12-13] MEDS ORDERED: QUEtiapine 25 MG Tab GTUBE ONE (14:20)
[2016-12-13] MEDS: Furosemide 20 MG Tab GTUBE SCH (15:09)
[2016-12-13] MEDS ORDERED: Warfarin 2.5 MG Tab PO ONE (18:00)
[2016-12-13] MEDS: Melatonin 3 MG Tab GTUBE SCH (21:04)
[2016-12-13] MEDS: Simvastatin 20 MG Tab GTUBE SCH (21:04)
[2016-12-13] MEDS: Valproic Acid 250 MG/5 ML Syrup ML (473 ML Bottle) GTUBE SCH (21:04)
[2016-12-13] MEDS: QUEtiapine 25 MG Tab GTUBE SCH (21:05)
[2016-12-14] MEDS: Balsam Peru/Castor Oil/Trypsin Spray 56.7 GM Canister TOP PRN (08:04)
[2016-12-14] MEDS: Furosemide 20 MG Tab GTUBE SCH (08:40)
[2016-12-14] MEDS: Saccharomyces Boulardii (Probiotic) 250 MG Cap GTUBE SCH (08:40)
[2016-12-14] MEDS: ATOVAQUONE 1500 MG GTUBE SCH (08:40)
[2016-12-14] MEDS: [UNRECOGNIZED DRUG - OTHER] EYEBOTH SCH ×2 (08:41→20:04)
[2016-12-14] MEDS: predniSONE 20 MG Tab GTUBE SCH (08:41)
[2016-12-14] MEDS: SODIUM BICARBONATE GTUBE SCH ×4 (08:42→20:06)
[2016-12-14] MEDS: Phytonadione 100 MCG Tab SCH (08:42)
[2016-12-14] MEDS: OMEPRAZOLE 20 MG GTUBE SCH ×4 (08:42→20:06)
[2016-12-14] MEDS ORDERED: Warfarin 2.5 MG Tab PO SCH (18:00)
[2016-12-14] MEDS: Valproic Acid 250 MG/5 ML Syrup ML (473 ML Bottle) GTUBE SCH (20:05)
[2016-12-14] MEDS: Melatonin 3 MG Tab GTUBE SCH (20:05)
[2016-12-14] MEDS: Simvastatin 20 MG Tab GTUBE SCH (20:06)
[2016-12-14] MEDS: QUEtiapine 25 MG Tab GTUBE SCH (20:06)
[2016-12-15] MEDS: Saccharomyces Boulardii (Probiotic) 250 MG Cap GTUBE SCH (08:17)
[2016-12-15] MEDS: ATOVAQUONE 1500 MG GTUBE SCH (08:17)
[2016-12-15] MEDS: Furosemide 20 MG Tab GTUBE SCH (08:17)
[2016-12-15] MEDS: OMEPRAZOLE 20 MG GTUBE SCH ×4 (08:18→20:49)
[2016-12-15] MEDS: SODIUM BICARBONATE GTUBE SCH ×4 (08:18→20:49)
[2016-12-15] MEDS: [UNRECOGNIZED DRUG - OTHER] EYEBOTH SCH ×2 (08:18→20:46)
[2016-12-15] MEDS: predniSONE 20 MG Tab GTUBE SCH (08:18)
[2016-12-15] MEDS: Phytonadione 100 MCG Tab SCH (08:18)
[2016-12-15] MEDS: Balsam Peru/Castor Oil/Trypsin Spray 56.7 GM Canister TOP PRN ×2 (08:19→21:10)
[2016-12-15] MEDS: Valproic Acid 250 MG/5 ML Syrup ML (473 ML Bottle) GTUBE SCH (20:45)
[2016-12-15] MEDS: Melatonin 3 MG Tab GTUBE SCH (20:45)
[2016-12-15] MEDS: Simvastatin 20 MG Tab GTUBE SCH (20:46)
[2016-12-15] MEDS: QUEtiapine 25 MG Tab GTUBE SCH (20:46)
[2016-12-16] MEDS: Balsam Peru/Castor Oil/Trypsin Spray 56.7 GM Canister TOP PRN ×2 (08:25→13:20)
[2016-12-16] MEDS ORDERED: Lidocaine 1% 20 ML MDV INJECT ONE (08:51)
[2016-12-16] MEDS: [UNRECOGNIZED DRUG - OTHER] EYEBOTH SCH ×2 (08:59→21:20)
[2016-12-16] MEDS: Furosemide 20 MG Tab GTUBE SCH (08:59)
[2016-12-16] MEDS: Phytonadione 100 MCG Tab SCH (08:59)
[2016-12-16] MEDS: predniSONE 20 MG Tab GTUBE SCH (08:59)
[2016-12-16] MEDS: Saccharomyces Boulardii (Probiotic) 250 MG Cap GTUBE SCH (09:00)
[2016-12-16] MEDS: ATOVAQUONE 1500 MG GTUBE SCH (09:01)
[2016-12-16] MEDS: OMEPRAZOLE 20 MG GTUBE SCH ×4 (09:09→21:23)
[2016-12-16] MEDS: SODIUM BICARBONATE GTUBE SCH ×4 (09:09→21:23)
[2016-12-16] MEDS: Loperamide 2 MG Tab GTUBE PRN (09:18)
--- NOTE | 2016-12-16 09:48 | PCM.PN ---
- General Info Date of Service: 12/16/16 Subjective Update: I was asked to see the patient because of the stitch the need to come out by the G-tube. The nurses were unable to get up. He states he doesn't feel good. Denies shortness of breath, cough, chest pain, fevers or chills. - Patient Data Vitals - most recent: Last Vital Signs Temp 210.4 F H 12/15/16 07:34 Pulse 74 12/15/16 07:34 Resp 20 12/15/16 07:34 BP 145/69 H 12/15/16 07:34 Pulse Ox 93 L 12/15/16 07:34 Weight - most recent: 156 lb 9.6 oz I&O - last 24 hours: Intake & Output 12/15/16 12/16/16 12/16/16 22:59 06:59 14:59 Intake Total 1622 Balance 1622 Lab Results last 24 hrs: Laboratory Results - last 24 hr 12/16/16 Range/Units 05:55 PT 29.7 H (8.7-11.1) INR 2.88 H (0.89-1.13) Med Orders - Current: Current Medications Acetaminophen (Tylenol Extra Strength) 500 mg GTUBE Q4H PRN PRN Reason: mild pain Omeprazole 20 mg/ Sodium (Bicarbonate 10 meq) 0 mg GTUBE BID [facility] Last Admin: 12/16/16 09:09 Dose: 10 ml Cyclosporine (Restasis) 1 each EYEBOTH BID [facility] Last Admin: 12/16/16 08:59 Dose: 1 drop Diphenhydramine HCl (Benadryl) 50 mg GTUBE BEDTIME PRN PRN Reason: Insomnia Last Admin: 12/08/16 21:16 Dose: 50 mg Docusate Sodium (Docu 50 Mg/5 Ml Liquid) 100 mg GTUBE BID PRN PRN Reason: Constipation Furosemide (Lasix) 20 mg GTUBE DAILY [facility] Last Admin: 12/16/16 08:59 Dose: 20 mg Loperamide HCl (Imodium Ad) 2 mg GTUBE DAILY PRN PRN Reason: Diarrhea Last Admin: 12/16/16 09:18 Dose: 2 mg Melatonin (Melatonin) 12 mg GTUBE BEDTIME [facility] Last Admin: 12/15/16 20:45 Dose: 12 mg Atovaquone [ Atovaquone] 1,500mg *Patient Own Med 1,500 mg GTUBE DAILY [facility] Last Admin: 12/16/16 09:01 Dose: 1,500 mg Phytonadione (Vitamin K) 100 mcg .XX DAILY [facility] Last Admin: 12/16/16 08:59 Dose: 100 mcg Prednisone (Prednisone) 40 mg GTUBE DAILY [facility] Stop: 12/19/16 09:01 Last Admin: 12/16/16 08:59 Dose: 40 mg Prednisone (Prednisone) 30 mg GTUBE DAILY [facility] Quetiapine Fumarate (Seroquel) 12.5 mg GTUBE BEDTIME [facility] Last Admin: 12/15/16 20:46 Dose: 12.5 mg Saccharomyces Boulardii (Florastor) 250 mg GTUBE DAILY [facility] Last Admin: 12/16/16 09:00 Dose: 250 mg Simvastatin (Zocor) 20 mg GTUBE BEDTIME [facility] Last Admin: 12/15/16 20:46 Dose: 20 mg Trypsin (Granulex [place]) 0 gm TOP ASDIRECTED PRN PRN Reason: Other Last Admin: 12/15/16 21:10 Dose: 1 spray Valproic Acid (Depakene Syrup) 125 mg GTUBE BEDTIME [facility] Last Admin: 12/15/16 20:45 Dose: 125 mg Warfarin Sodium (Coumadin) 0 mg GTUBE ASDIRECTED [facility] Discontinued Medications Amoxicillin/Clavulanate Potassium (Augmentin 875 Mg/125 Mg) 1 tab GTUBE BID [facility] Stop: 12/08/16 09:01 Last Admin: 12/08/16 09:34 Dose: 1 tab Omeprazole 20 mg/ Sodium (Bicarbonate 10 meq) 0 mg PO BID [facility] Last Admin: 12/08/16 09:43 Dose: 10 ml Diphenhydramine HCl (Benadryl) 50 mg GTUBE BEDTIME PRN PRN Reason: Insomnia Last Admin: 12/05/16 21:38 Dose: 50 mg Diphenhydramine HCl (Benadryl) 50 mg PO .STK-MED ONE Stop: 12/05/16 21:39 Escitalopram Oxalate (Lexapro) 10 mg GTUBE DAILY [facility] Last Admin: 12/09/16 08:12 Dose: 10 mg Escitalopram Oxalate (Lexapro) 20 mg GTUBE DAILY [facility] Last Admin: 12/13/16 09:56 Dose: 20 mg Lidocaine HCl (Xylocaine 1%) 1 ml INJECT ONETIME ONE Stop: 12/16/16 08:52 Last Admin: 12/16/16 08:10 Dose: 0.5 ml Loperamide HCl (Imodium) 2 mg PO DAILY PRN PRN Reason: Diarrhea Loperamide HCl (Imodium) 2 mg GTUBE DAILY PRN PRN Reason: Diarrhea Last Admin: 12/07/16 21:07 Dose: 2 mg Omeprazole (Suspension 20mg) 20 mg GTUBE BID [facility] Last Admin: 12/05/16 21:37 Dose: 20 mg Phytonadione (Vitamin K) 100 mcg PO DAILY [facility] Last Admin: 12/08/16 09:38 Dose: 100 mcg Quetiapine Fumarate (Seroquel) 12.5 mg GTUBE ONETIME ONE Stop: 12/13/16 14:21 Last Admin: 12/13/16 15:09 Dose: 12.5 mg Simvastatin (Zocor) 20 mg GTUBE BEDTIME [facility] Last Admin: 12/05/16 21:40 Dose: 20 mg Sodium Chloride (Saline Flush) 10 ml FLUSH DAILY [facility] Last Admin: 12/09/16 11:10 Dose: Not Given Warfarin Sodium (Coumadin) 1.25 mg PO 1600 [facility] Stop: 12/06/16 16:01 Last Admin: 12/06/16 16:38 Dose: 1.25 mg Warfarin Sodium (Coumadin) 2.5 mg PO 1600 [facility] Stop: 12/07/16 16:01 Last Admin: 12/07/16 15:58 Dose: 2.5 mg Warfarin Sodium (Coumadin) 5 mg PO 1600 [facility] Stop: 12/08/16 16:01 Warfarin Sodium (Coumadin) 5 mg GTUBE 1600 [facility] Stop: 12/08/16 16:01 Last Admin: 12/08/16 15:51 Dose: 5 mg Warfarin Sodium (Coumadin) 2.5 mg GTUBE 1800 [facility] Stop: 12/09/16 18:01 Last Admin: 12/09/16 17:40 Dose: 2.5 mg Warfarin Sodium (Coumadin) 1.25 mg GTUBE 1800 [facility] Stop: 12/11/16 18:01 Last Admin: 12/11/16 17:49 Dose: 1.25 mg Warfarin Sodium (Coumadin) 3 mg PO 1800 [facility] Stop: 12/12/16 18:01 Last Admin: 12/12/16 18:09 Dose: 3 mg Warfarin Sodium (Coumadin) 2.5 mg PO 12/13/16@1800 ONE Stop: 12/13/16 18:01 Last Admin: 12/13/16 18:33 Dose: 2.5 mg Warfarin Sodium (Coumadin) 2.5 mg PO 1800 [facility] Last Admin: 12/14/16 17:00 Dose: 2.5 mg Warfarin Sodium (Coumadin) 1 mg PO DAILY@1800 ROBERT Stop: 12/15/16 18:01 Last Admin: 12/15/16 17:59 Dose: 1 mg - Exam General: alert, oriented, cooperative Neck: supple Lungs: Clear to auscultation, Normal respiratory effort Cardiovascular: Regular Rate, Regular Rhythm, No Murmurs Extremities: no edema Skin: other (Suture in place next a G-tube) Psy/Mental Status: alert, depressed, suicidal ideation. No: normal affect, normal mood - Problem List & Annotations (1) Pneumonia SNOMED Code(s): 697257640 Code(s): J18.9 - PNEUMONIA, UNSPECIFIED ORGANISM Status: Acute Current Visit: No Annotation/Comment:: Start Rocephin and Azithromycin (2) Atrial fibrillation SNOMED Code(s): 65856186 Code(s): I48.91 - UNSPECIFIED ATRIAL FIBRILLATION Status: Resolved Current Visit: No (3) Fatigue SNOMED Code(s): 78581881 Code(s): R53.83 - OTHER FATIGUE Status: Resolved Current Visit: No Qualifiers: Fatigue type: chronic, unspecified Qualified Code(s): R53.82 - Chronic fatigue, unspecified - Problem List Review Problem List Initiated/Reviewed/Updated: Yes - Plan Plan:: 1. Continue current care. 2. Stitches very tight so he is a little 1% lidocaine with 25-gauge needle. Is able to pull on the suture and cut with a scissors.
[2016-12-16] MEDS: Valproic Acid 250 MG/5 ML Syrup ML (473 ML Bottle) GTUBE SCH (21:20)
[2016-12-16] MEDS: Melatonin 3 MG Tab GTUBE SCH (21:20)
[2016-12-16] MEDS: Simvastatin 20 MG Tab GTUBE SCH (21:22)
[2016-12-16] MEDS: QUEtiapine 25 MG Tab GTUBE SCH (21:22)
[2016-12-17] MEDS: Saccharomyces Boulardii (Probiotic) 250 MG Cap GTUBE SCH (08:07)
[2016-12-17] MEDS: Furosemide 20 MG Tab GTUBE SCH (08:07)
[2016-12-17] MEDS: ATOVAQUONE 1500 MG GTUBE SCH (08:07)
[2016-12-17] MEDS: Phytonadione 100 MCG Tab SCH (08:08)
[2016-12-17] MEDS: [UNRECOGNIZED DRUG - OTHER] EYEBOTH SCH ×2 (08:08→21:07)
[2016-12-17] MEDS: predniSONE 20 MG Tab GTUBE SCH (08:08)
[2016-12-17] MEDS: OMEPRAZOLE 20 MG GTUBE SCH ×4 (08:09→21:08)
[2016-12-17] MEDS: SODIUM BICARBONATE GTUBE SCH ×4 (08:09→21:08)
[2016-12-17] MEDS: Warfarin 2 MG Tab PO SCH (17:00)
[2016-12-17] MEDS: Valproic Acid 250 MG/5 ML Syrup ML (473 ML Bottle) GTUBE SCH (21:06)
[2016-12-17] MEDS: Melatonin 3 MG Tab GTUBE SCH (21:07)
[2016-12-17] MEDS: QUEtiapine 25 MG Tab GTUBE SCH (21:07)
[2016-12-17] MEDS: Simvastatin 20 MG Tab GTUBE SCH (21:08)
[2016-12-18] MEDS: Balsam Peru/Castor Oil/Trypsin Spray 56.7 GM Canister TOP PRN ×2 (06:25→08:52)
[2016-12-18] MEDS: [UNRECOGNIZED DRUG - OTHER] EYEBOTH SCH ×2 (08:28→20:15)
[2016-12-18] MEDS: ATOVAQUONE 1500 MG GTUBE SCH ×2 (08:32)
[2016-12-18] MEDS: Saccharomyces Boulardii (Probiotic) 250 MG Cap GTUBE SCH (08:33)
[2016-12-18] MEDS: predniSONE 20 MG Tab GTUBE SCH (08:34)
[2016-12-18] MEDS: Furosemide 20 MG Tab GTUBE SCH (08:34)
[2016-12-18] MEDS: Phytonadione 100 MCG Tab SCH (08:34)
[2016-12-18] MEDS: OMEPRAZOLE 20 MG GTUBE SCH ×4 (08:38→20:16)
[2016-12-18] MEDS: SODIUM BICARBONATE GTUBE SCH ×4 (08:38→20:16)
[2016-12-18] MEDS: Loperamide 2 MG Tab GTUBE PRN (08:39)
[2016-12-18] MEDS: Warfarin 2 MG Tab PO SCH (18:59)
[2016-12-18] MEDS: Valproic Acid 250 MG/5 ML Syrup ML (473 ML Bottle) GTUBE SCH (20:14)
[2016-12-18] MEDS: QUEtiapine 25 MG Tab GTUBE SCH (20:15)
[2016-12-18] MEDS: Melatonin 3 MG Tab GTUBE SCH (20:15)
[2016-12-18] MEDS: Simvastatin 20 MG Tab GTUBE SCH (20:16)
[2016-12-19] MEDS: Balsam Peru/Castor Oil/Trypsin Spray 56.7 GM Canister TOP PRN ×2 (03:30→07:25)
[2016-12-19] MEDS ORDERED: LORazepam 0.5 MG Tab PO PRN (08:21)
--- NOTE | 2016-12-19 08:21 | PCM.PN ---
- General Info Date of Service: 12/19/16 Subjective Update: Patient states he still is short of breath when he walks and has been since he' s been here. He has no chest pain, leg swelling. His stools are now improved on the new feedings. More formed. No abdominal pain. He still feels depressed , anxious. Says his sleep is okay. Concentration memory is good sometimes not at other times. He denies suicidal ideation. - Patient Data Vitals - most recent: Last Vital Signs Temp 98.0 F 12/18/16 07:40 Pulse 74 12/18/16 07:40 Resp 22 H 12/18/16 07:40 BP 141/75 H 12/18/16 07:40 Pulse Ox 97 12/18/16 07:40 Weight - most recent: 157 lb 14.4 oz I&O - last 24 hours: Intake & Output 12/18/16 12/19/16 12/19/16 22:59 06:59 14:59 Intake Total 580 Balance 580 Lab Results last 24 hrs: Laboratory Results - last 24 hr 12/19/16 Range/Units 06:14 PT 18.9 H (8.7-11.1) INR 1.85 H (0.89-1.13) Med Orders - Current: Current Medications Acetaminophen (Tylenol Extra Strength) 500 mg GTUBE Q4H PRN PRN Reason: mild pain Omeprazole 20 mg/ Sodium (Bicarbonate 10 meq) 0 mg GTUBE BID [facility] Last Admin: 12/18/16 20:16 Dose: 10 ml Cyclosporine (Restasis) 1 each EYEBOTH BID [facility] Last Admin: 12/18/16 20:15 Dose: 1 drop Diphenhydramine HCl (Benadryl) 50 mg GTUBE BEDTIME PRN PRN Reason: Insomnia Last Admin: 12/08/16 21:16 Dose: 50 mg Docusate Sodium (Docu 50 Mg/5 Ml Liquid) 100 mg GTUBE BID PRN PRN Reason: Constipation Furosemide (Lasix) 20 mg GTUBE DAILY [facility] Last Admin: 12/18/16 08:34 Dose: 20 mg Loperamide HCl (Imodium Ad) 2 mg GTUBE DAILY PRN PRN Reason: Diarrhea Last Admin: 12/18/16 08:39 Dose: 2 mg Melatonin (Melatonin) 12 mg GTUBE BEDTIME [facility] Last Admin: 12/18/16 20:15 Dose: 12 mg Atovaquone [ Atovaquone] 1,500mg *Patient Own Med 1,500 mg GTUBE DAILY [facility] Last Admin: 12/18/16 08:32 Dose: 1,500 mg Phytonadione (Vitamin K) 100 mcg .XX DAILY [facility] Last Admin: 12/18/16 08:34 Dose: 100 mcg Prednisone (Prednisone) 40 mg GTUBE DAILY [facility] Stop: 12/19/16 09:01 Last Admin: 12/18/16 08:34 Dose: 40 mg Prednisone (Prednisone) 30 mg GTUBE DAILY [facility] Quetiapine Fumarate (Seroquel) 12.5 mg GTUBE BEDTIME [facility] Last Admin: 12/18/16 20:15 Dose: 12.5 mg Saccharomyces Boulardii (Florastor) 250 mg GTUBE DAILY [facility] Last Admin: 12/18/16 08:33 Dose: 250 mg Simvastatin (Zocor) 20 mg GTUBE BEDTIME [facility] Last Admin: 12/18/16 20:16 Dose: 20 mg Trypsin (Granulex [place]) 0 gm TOP ASDIRECTED PRN PRN Reason: Other Last Admin: 12/19/16 03:30 Dose: 1 spray Valproic Acid (Depakene Syrup) 125 mg GTUBE BEDTIME [facility] Last Admin: 12/18/16 20:14 Dose: 125 mg Warfarin Sodium (Coumadin) 0 mg GTUBE ASDIRECTED [facility] Warfarin Sodium (Coumadin) 3 mg PO 1800 [facility] Stop: 12/19/16 18:01 Discontinued Medications Amoxicillin/Clavulanate Potassium (Augmentin 875 Mg/125 Mg) 1 tab GTUBE BID [facility] Stop: 12/08/16 09:01 Last Admin: 12/08/16 09:34 Dose: 1 tab Omeprazole 20 mg/ Sodium (Bicarbonate 10 meq) 0 mg PO BID [facility] Last Admin: 12/08/16 09:43 Dose: 10 ml Diphenhydramine HCl (Benadryl) 50 mg GTUBE BEDTIME PRN PRN Reason: Insomnia Last Admin: 12/05/16 21:38 Dose: 50 mg Diphenhydramine HCl (Benadryl) 50 mg PO .STK-MED ONE Stop: 12/05/16 21:39 Escitalopram Oxalate (Lexapro) 10 mg GTUBE DAILY [facility] Last Admin: 12/09/16 08:12 Dose: 10 mg Escitalopram Oxalate (Lexapro) 20 mg GTUBE DAILY [facility] Last Admin: 12/13/16 09:56 Dose: 20 mg Lidocaine HCl (Xylocaine 1%) 1 ml INJECT ONETIME ONE Stop: 12/16/16 08:52 Last Admin: 12/16/16 08:10 Dose: 0.5 ml Loperamide HCl (Imodium) 2 mg PO DAILY PRN PRN Reason: Diarrhea Loperamide HCl (Imodium) 2 mg GTUBE DAILY PRN PRN Reason: Diarrhea Last Admin: 12/07/16 21:07 Dose: 2 mg Omeprazole (Suspension 20mg) 20 mg GTUBE BID [facility] Last Admin: 12/05/16 21:37 Dose: 20 mg Phytonadione (Vitamin K) 100 mcg PO DAILY [facility] Last Admin: 12/08/16 09:38 Dose: 100 mcg Quetiapine Fumarate (Seroquel) 12.5 mg GTUBE ONETIME ONE Stop: 12/13/16 14:21 Last Admin: 12/13/16 15:09 Dose: 12.5 mg Simvastatin (Zocor) 20 mg GTUBE BEDTIME [facility] Last Admin: 12/05/16 21:40 Dose: 20 mg Sodium Chloride (Saline Flush) 10 ml FLUSH DAILY [facility] Last Admin: 12/09/16 11:10 Dose: Not Given Warfarin Sodium (Coumadin) 1.25 mg PO 1600 [facility] Stop: 12/06/16 16:01 Last Admin: 12/06/16 16:38 Dose: 1.25 mg Warfarin Sodium (Coumadin) 2.5 mg PO 1600 [facility] Stop: 12/07/16 16:01 Last Admin: 12/07/16 15:58 Dose: 2.5 mg Warfarin Sodium (Coumadin) 5 mg PO 1600 [facility] Stop: 12/08/16 16:01 Warfarin Sodium (Coumadin) 5 mg GTUBE 1600 [facility] Stop: 12/08/16 16:01 Last Admin: 12/08/16 15:51 Dose: 5 mg Warfarin Sodium (Coumadin) 2.5 mg GTUBE 1800 [facility] Stop: 12/09/16 18:01 Last Admin: 12/09/16 17:40 Dose: 2.5 mg Warfarin Sodium (Coumadin) 1.25 mg GTUBE 1800 [facility] Stop: 12/11/16 18:01 Last Admin: 12/11/16 17:49 Dose: 1.25 mg Warfarin Sodium (Coumadin) 3 mg PO 1800 [facility] Stop: 12/12/16 18:01 Last Admin: 12/12/16 18:09 Dose: 3 mg Warfarin Sodium (Coumadin) 2.5 mg PO 12/13/16@1800 ONE Stop: 12/13/16 18:01 Last Admin: 12/13/16 18:33 Dose: 2.5 mg Warfarin Sodium (Coumadin) 2.5 mg PO 1800 [facility] Last Admin: 12/14/16 17:00 Dose: 2.5 mg Warfarin Sodium (Coumadin) 1 mg PO DAILY@1800 [facility] Stop: 12/15/16 18:01 Last Admin: 12/15/16 17:59 Dose: 1 mg Warfarin Sodium (Coumadin) 2 mg PO 1800 [facility] Last Admin: 12/18/16 18:59 Dose: 2 mg - Exam General: alert, oriented, cooperative Neck: supple Lungs: Clear to auscultation, Normal respiratory effort Cardiovascular: No Murmurs, Irregular Rhythm Extremities: no edema Psy/Mental Status: alert, depressed. No: normal affect, normal mood - Problem List & Annotations (1) Pneumonia SNOMED Code(s): 648125919 Code(s): J18.9 - PNEUMONIA, UNSPECIFIED ORGANISM Status: Acute Current Visit: No Annotation/Comment:: Start Rocephin and Azithromycin (2) Atrial fibrillation SNOMED Code(s): 70244056 Code(s): I48.91 - UNSPECIFIED ATRIAL FIBRILLATION Status: Resolved Current Visit: No (3) Fatigue SNOMED Code(s): 00190642 Code(s): R53.83 - OTHER FATIGUE Status: Resolved Current Visit: No Qualifiers: Fatigue type: chronic, unspecified Qualified Code(s): R53.82 - Chronic fatigue, unspecified (4) Amiodarone pulmonary toxicity SNOMED Code(s): 84433523 Code(s): J98.4 - OTHER DISORDERS OF LUNG; T46.2X5A - ADVERSE EFFECT OF OTHER ANTIDYSRHYTHMIC DRUGS, INIT ENCNTR Status: Acute Current Visit: Yes (5) MDD (major depressive disorder) SNOMED Code(s): 920056651, 456297014 Code(s): F32.9 - MAJOR DEPRESSIVE DISORDER, SINGLE EPISODE, UNSPECIFIED Status: Acute Current Visit: Yes Qualifiers: Active/Remission status: currently active (6) Pacemaker pocket hematoma SNOMED Code(s): 267834703 Code(s): T82.837A - HEMORRHAGE DUE TO CARDIAC PROSTH DEV/GRFT, INITIAL ENCOUNTER Status: Chronic Current Visit: Yes Qualifiers: Encounter type: subsequent encounter Qualified Code(s): T82.837D - Hemorrhage due to cardiac prosthetic devices, implants and grafts, subsequent encounter - Problem List Review Problem List Initiated/Reviewed/Updated: Yes - My Orders Last 24 Hours: My Active Orders 12/19/16 18:00 Warfarin [Coumadin] 3 mg PO 1800 - Plan Plan:: 1. continue Lexapro. I told the patient it takes at least 2 weeks to notice the benefit. 2. Ativan 0.5 mg 3 times a day when necessary for anxiety. 3. Dietary to consider tube feedings at night. 4. Continue PT/OT.
[2016-12-19] MEDS ORDERED: LORazepam 0.5 MG Tab GTUBE PRN (08:28)
[2016-12-19] MEDS: ATOVAQUONE 1500 MG GTUBE SCH (08:47)
[2016-12-19] MEDS: SODIUM BICARBONATE GTUBE SCH ×4 (08:48→20:36)
[2016-12-19] MEDS: OMEPRAZOLE 20 MG GTUBE SCH ×4 (08:48→20:36)
[2016-12-19] MEDS: [UNRECOGNIZED DRUG - OTHER] EYEBOTH SCH ×2 (08:49→20:35)
[2016-12-19] MEDS: Saccharomyces Boulardii (Probiotic) 250 MG Cap GTUBE SCH (08:51)
[2016-12-19] MEDS: Furosemide 20 MG Tab GTUBE SCH (08:51)
[2016-12-19] MEDS: predniSONE 20 MG Tab GTUBE SCH (08:51)
[2016-12-19] MEDS: Phytonadione 100 MCG Tab SCH (08:52)
[2016-12-19] MEDS: Warfarin 2 MG Tab GTUBE SCH (17:01)
[2016-12-19] MEDS: Valproic Acid 250 MG/5 ML Syrup ML (473 ML Bottle) GTUBE SCH (20:35)
[2016-12-19] MEDS: Melatonin 3 MG Tab GTUBE SCH (20:35)
[2016-12-19] MEDS: Simvastatin 20 MG Tab GTUBE SCH (20:36)
[2016-12-19] MEDS: QUEtiapine 25 MG Tab GTUBE SCH (20:36)
[2016-12-20] MEDS: ATOVAQUONE 1500 MG GTUBE SCH (08:20)
[2016-12-20] MEDS: Saccharomyces Boulardii (Probiotic) 250 MG Cap GTUBE SCH (08:22)
[2016-12-20] MEDS: [UNRECOGNIZED DRUG - OTHER] EYEBOTH SCH ×2 (08:23→22:32)
[2016-12-20] MEDS: Furosemide 20 MG Tab GTUBE SCH (08:23)
[2016-12-20] MEDS: SODIUM BICARBONATE GTUBE SCH ×4 (08:24→22:42)
[2016-12-20] MEDS: OMEPRAZOLE 20 MG GTUBE SCH ×4 (08:24→22:42)
[2016-12-20] MEDS: Phytonadione 100 MCG Tab SCH (08:24)
[2016-12-20] MEDS: predniSONE 10 MG Tab GTUBE SCH (15:44)
[2016-12-20] MEDS: Warfarin 2 MG Tab GTUBE SCH (18:38)
[2016-12-20] MEDS: Valproic Acid 250 MG/5 ML Syrup ML (473 ML Bottle) GTUBE SCH (22:30)
[2016-12-20] MEDS: Melatonin 3 MG Tab GTUBE SCH (22:31)
[2016-12-20] MEDS: QUEtiapine 25 MG Tab GTUBE SCH (22:32)
[2016-12-20] MEDS: Simvastatin 20 MG Tab GTUBE SCH (22:33)
[2016-12-21] MEDS: Furosemide 20 MG Tab GTUBE SCH (08:30)
[2016-12-21] MEDS: Saccharomyces Boulardii (Probiotic) 250 MG Cap GTUBE SCH (08:30)
[2016-12-21] MEDS: [UNRECOGNIZED DRUG - OTHER] EYEBOTH SCH ×2 (08:31→20:45)
[2016-12-21] MEDS: Phytonadione 100 MCG Tab SCH (08:32)
[2016-12-21] MEDS: OMEPRAZOLE 20 MG GTUBE SCH ×4 (08:33→20:51)
[2016-12-21] MEDS: SODIUM BICARBONATE GTUBE SCH ×4 (08:33→20:51)
[2016-12-21] MEDS: ATOVAQUONE 1500 MG GTUBE SCH (08:34)
[2016-12-21] MEDS: predniSONE 10 MG Tab GTUBE SCH (08:43)
[2016-12-21] MEDS ORDERED: Warfarin 2.5 MG Tab PO SCH (18:00)
[2016-12-21] MEDS: Valproic Acid 250 MG/5 ML Syrup ML (473 ML Bottle) GTUBE SCH (20:43)
[2016-12-21] MEDS: Melatonin 3 MG Tab GTUBE SCH (20:44)
[2016-12-21] MEDS: QUEtiapine 25 MG Tab GTUBE SCH (20:45)
[2016-12-21] MEDS: Simvastatin 20 MG Tab GTUBE SCH (20:45)
[2016-12-22] MEDS: Balsam Peru/Castor Oil/Trypsin Spray 56.7 GM Canister TOP PRN (07:54)
[2016-12-22] MEDS ORDERED: Pantoprazole 40 MG Vial ONE (09:44)
[2016-12-22] MEDS: Saccharomyces Boulardii (Probiotic) 250 MG Cap GTUBE SCH (09:46)
[2016-12-22] MEDS: Furosemide 20 MG Tab GTUBE SCH (09:47)
[2016-12-22] MEDS: SODIUM BICARBONATE GTUBE SCH ×4 (09:47→21:20)
[2016-12-22] MEDS: Phytonadione 100 MCG Tab SCH (09:47)
[2016-12-22] MEDS: OMEPRAZOLE 20 MG GTUBE SCH ×4 (09:47→21:20)
[2016-12-22] MEDS: predniSONE 10 MG Tab GTUBE SCH (09:47)
[2016-12-22] MEDS: [UNRECOGNIZED DRUG - OTHER] EYEBOTH SCH ×2 (09:47→21:13)
[2016-12-22] MEDS: ATOVAQUONE 1500 MG GTUBE SCH (09:48)
--- NOTE | 2016-12-22 14:05 | CONS ---
DATE OF CONSULTATION: 12/13/2016 60-minute inpatient clinical event/psychiatric consultation IDENTIFICATION: The patient is an 86-year-old male, who is admitted through the inpatient medical unit at [facility] in [place], [place]. He is seen for psychiatric consultation, and his , Jaylene, is also present for the consultation and does participation in the interview this morning. CHIEF COMPLAINT: Depression. HISTORY OF PRESENT ILLNESS: The patient is an 86-year-old male, who was admitted originally to [facility] in [place], [place] on 12/05/2016. He recently had some medical issues involving amiodarone toxicity and cardioversion. According to the patient, he has been struggling with "depression and anxiety" for about 2 months. His agrees with this assessment and states that he has also been struggling with low energy and poor sleep patterns. The patient states he is very anxious. He has racing thoughts and ruminations. He is also having quite a bit of paranoia and even experiencing visual hallucinations, according to the patient and his . The patient denies that he is suicidal or homicidal. He is taking a combination of Lexapro and melatonin, but he is not getting much relief from these agents, even though they did work in the past. He is also taking Depakene for seizure disorder, but his states that he has not had a seizure in over 30 years. The patient and his are wondering if something can be done to help him with his current situation, insofar as his psychiatric issues are concerned. MEDICATIONS: At the time of presentation are: 1. Lexapro 20 mg daily. 2. Depakene 2.5 mL daily. 3. Melatonin 12 mg at bedtime. ALLERGIES: 1. Amiodarone. 2. Sulfa patch. PAST MEDICAL HISTORY: 1. Amiodarone toxicity. 2. Cardioversion. 3. Seizures with the last seizure being greater than 30 years ago. REVIEW OF SYSTEMS: Aside from cardiovascular and neuro, all other major organ systems appear negative at this point in time for acute difficulties or complications. FAMILY PSYCHIATRIC AND CHEMICAL DEPENDENCY HISTORY: The patient reports he has sisters and a son who struggle with depression. PAST PSYCHIATRIC AND CHEMICAL DEPENDENCY HISTORY: Significant for one previous psychiatric hospitalization in 2005. Denies any chemical dependency treatments. Denies any illicit substance use or excessive alcohol that is complicating his clinical picture presently. He did have 1 ECT series back over 50 years ago. No reports of previous suicide attempts or self-injurious behaviors. PAST PSYCHIATRIC DIAGNOSIS: Include clinical depression. PAST PSYCHIATRIC MEDICATION HISTORY: Includes Prozac, which was ineffective; Remeron, which worked, but he had some side effects, which eventually had to have the patient discontinue this medications; Seroquel, which also worked. PRIMARY PSYCHIATRIST: Dr. Cross out of [place]. 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 MENTAL STATUS EXAM: The patient is an 86-year-old white male in no apparent distress. Speech is of regular rate and rhythm. The patient is cognitively oriented. Psychomotor activity is within normal limits. There are no abnormal motor movements or tics observed. Gait and station are not observed. This patient is sitting in a chair at the time of the interview. Mood is anxious and depressed. Affect is consistent with state of mood, restricted and tense appearing, but cooperative overall for the purposes of the inpatient psychiatric consult. There is no behavioral or stated evidence of acute suicidal or homicidal ideation. Thought content, however, is significant for visual hallucinations and paranoid themes. Thought processes are significant for racing thoughts and ruminations. There are no acute manic symptoms or loose associations evident. Judgment and insight appear somewhat impaired at this point in time secondary to his issues with extreme anxiety, depression, paranoia, and visual hallucinosis. Motivation for followup is good. VITAL SIGNS: At the time of presentation, he is 5 feet 6 inches tall, 157 pounds, 131/77, 66, 20, 98.6 degrees. IMPRESSION: Hurricane I: 1. Psychosis, not otherwise specified, F29. 2. Major depressive disorder, recurrent, F33.2. 3. Anxiety disorder, not otherwise specified, F41.9. Hurricane II: None. Hurricane III: 1. History of amiodarone toxicity. 2. History of cardioversion. 3. History of seizures with the last seizure being greater than 30 years ago. Hurricane IV: Severe. Hurricane V: 50 to 55. PLAN: 1. Discontinue Lexapro, as this medication appears ineffective for this patient at this point in time. 2. Begin a trial of Seroquel 12.5 mg at bedtime to help reduce racing thoughts, ruminations, paranoia, and visual hallucinations, as well as to assist with clarity of thought and anxiety reduction, as well as sleep initiation and sleep maintenance. 3. We will also consider a trial of Cymbalta going forward, if need be, to further help bolster the patient's mood, if he does not respond to the Seroquel monotherapy. 4. We will also consider restarting Remeron, if possible, if treatment team is able to obtain collateral information from the patient's primary psychiatrist as to why this medication was discontinued in the first place. 5. The patient and the patient's were instructed to sign a release of information to obtain collateral information from the patient's primary outpatient psychiatrist, if this has not already been done. 6. We will continue to follow up with the patient on a regular basis while he remains on the medical unit as needed and per request of the treatment team. 7. We will follow up with the patient sooner, if there are any complications in the interim. 8. Other medications and dosing prescribed by the patient's primary medical treatment team. 9. Crisis plan is in place. /[id number] JOAQUÍN/CHERISE
[2016-12-22] MEDS ORDERED: Warfarin 4 MG Tab PO ONE (16:00)
[2016-12-22] MEDS ORDERED: OMEPRAZOLE PO ONE ×2 (16:31)
[2016-12-22] MEDS ORDERED: SODIUM BICARBONATE PO ONE ×2 (16:31)
--- NOTE | 2016-12-22 16:47 | PCM.PN ---
- General Info Date of Service: 12/22/16 Admission Dx/Problem (Free Text): Patient states so anxious that he knows is going home tomorrow no other concerns. - Patient Data Vitals - most recent: Last Vital Signs Temp 207.5 F H 12/22/16 07:41 Pulse 84 12/22/16 07:41 Resp 20 12/22/16 07:41 BP 125/72 12/22/16 07:41 Pulse Ox 94 L 12/22/16 14:00 Weight - most recent: 156 lb 3.2 oz I&O - last 24 hours: Intake & Output 12/22/16 12/22/16 12/22/16 06:59 14:59 22:59 Intake Total 1160 1060 Balance 1160 1060 Lab Results last 24 hrs: Laboratory Results - last 24 hr 12/22/16 Range/Units 06:00 PT 19.1 H (8.7-11.1) INR 1.87 H (0.89-1.13) Med Orders - Current: Current Medications Acetaminophen (Tylenol Extra Strength) 500 mg GTUBE Q4H PRN PRN Reason: mild pain Omeprazole 20 mg/ Sodium (Bicarbonate 10 meq) 0 mg GTUBE BID [facility] Last Admin: 12/22/16 09:47 Dose: 10 ml Cyclosporine (Restasis) 1 each EYEBOTH BID [facility] Last Admin: 12/22/16 09:47 Dose: 1 drop Diphenhydramine HCl (Benadryl) 50 mg GTUBE BEDTIME PRN PRN Reason: Insomnia Last Admin: 12/08/16 21:16 Dose: 50 mg Docusate Sodium (Docu 50 Mg/5 Ml Liquid) 100 mg GTUBE BID PRN PRN Reason: Constipation Furosemide (Lasix) 20 mg GTUBE DAILY [facility] Last Admin: 12/22/16 09:47 Dose: 20 mg Loperamide HCl (Imodium Ad) 2 mg GTUBE DAILY PRN PRN Reason: Diarrhea Last Admin: 12/18/16 08:39 Dose: 2 mg Lorazepam (Ativan) 0.5 mg GTUBE TID PRN PRN Reason: Anxiety Last Admin: 12/19/16 08:46 Dose: 0.5 mg Melatonin (Melatonin) 12 mg GTUBE BEDTIME [facility] Last Admin: 12/21/16 20:44 Dose: 12 mg Atovaquone [ Atovaquone] 1,500mg *Patient Own Med 1,500 mg GTUBE DAILY [facility] Last Admin: 12/22/16 09:48 Dose: 1,500 mg Phytonadione (Vitamin K) 100 mcg .XX DAILY [facility] Last Admin: 12/22/16 09:47 Dose: 100 mcg Prednisone (Prednisone) 30 mg GTUBE DAILY [facility] Last Admin: 12/22/16 09:47 Dose: 30 mg Quetiapine Fumarate (Seroquel) 12.5 mg GTUBE BEDTIME [facility] Last Admin: 12/21/16 20:45 Dose: 12.5 mg Saccharomyces Boulardii (Florastor) 250 mg GTUBE DAILY [facility] Last Admin: 12/22/16 09:46 Dose: 250 mg Simvastatin (Zocor) 20 mg GTUBE BEDTIME [facility] Last Admin: 12/21/16 20:45 Dose: 20 mg Trypsin (Granulex [place]) 0 gm TOP ASDIRECTED PRN PRN Reason: Other Last Admin: 12/22/16 07:54 Dose: 1 spray Valproic Acid (Depakene Syrup) 125 mg GTUBE BEDTIME [facility] Last Admin: 12/21/16 20:43 Dose: 125 mg Warfarin Sodium (Coumadin) 0 mg GTUBE ASDIRECTED [facility] Discontinued Medications Amoxicillin/Clavulanate Potassium (Augmentin 875 Mg/125 Mg) 1 tab GTUBE BID [facility] Stop: 12/08/16 09:01 Last Admin: 12/08/16 09:34 Dose: 1 tab Omeprazole 20 mg/ Sodium (Bicarbonate 10 meq) 0 mg PO BID [facility] Last Admin: 12/08/16 09:43 Dose: 10 ml Omeprazole 600 mg/ Sodium (Bicarbonate 300 meq) 0 mg PO .STK-MED ONE Stop: 12/22/16 16:32 Diphenhydramine HCl (Benadryl) 50 mg GTUBE BEDTIME PRN PRN Reason: Insomnia Last Admin: 12/05/16 21:38 Dose: 50 mg Diphenhydramine HCl (Benadryl) 50 mg PO .STK-MED ONE Stop: 12/05/16 21:39 Escitalopram Oxalate (Lexapro) 10 mg GTUBE DAILY [facility] Last Admin: 12/09/16 08:12 Dose: 10 mg Escitalopram Oxalate (Lexapro) 20 mg GTUBE DAILY [facility] Last Admin: 12/13/16 09:56 Dose: 20 mg Lidocaine HCl (Xylocaine 1%) 1 ml INJECT ONETIME ONE Stop: 12/16/16 08:52 Last Admin: 12/16/16 08:10 Dose: 0.5 ml Loperamide HCl (Imodium) 2 mg PO DAILY PRN PRN Reason: Diarrhea Loperamide HCl (Imodium) 2 mg GTUBE DAILY PRN PRN Reason: Diarrhea Last Admin: 12/07/16 21:07 Dose: 2 mg Lorazepam (Ativan) 0.5 mg PO TID PRN PRN Reason: Anxiety Omeprazole (Suspension 20mg) 20 mg GTUBE BID [facility] Last Admin: 12/05/16 21:37 Dose: 20 mg Pantoprazole Sodium (Protonix Iv) Confirm Administered Dose 40 mg .ROUTE .STK -MED ONE Stop: 12/22/16 09:45 Last Admin: 12/22/16 10:22 Dose: Not Given Phytonadione (Vitamin K) 100 mcg PO DAILY [facility] Last Admin: 12/08/16 09:38 Dose: 100 mcg Prednisone (Prednisone) 40 mg GTUBE DAILY [facility] Stop: 12/19/16 09:01 Last Admin: 12/19/16 08:51 Dose: 40 mg Quetiapine Fumarate (Seroquel) 12.5 mg GTUBE ONETIME ONE Stop: 12/13/16 14:21 Last Admin: 12/13/16 15:09 Dose: 12.5 mg Simvastatin (Zocor) 20 mg GTUBE BEDTIME [facility] Last Admin: 12/05/16 21:40 Dose: 20 mg Sodium Chloride (Saline Flush) 10 ml FLUSH DAILY [facility] Last Admin: 12/09/16 11:10 Dose: Not Given Warfarin Sodium (Coumadin) 1.25 mg PO 1600 [facility] Stop: 12/06/16 16:01 Last Admin: 12/06/16 16:38 Dose: 1.25 mg Warfarin Sodium (Coumadin) 2.5 mg PO 1600 [facility] Stop: 12/07/16 16:01 Last Admin: 12/07/16 15:58 Dose: 2.5 mg Warfarin Sodium (Coumadin) 5 mg PO 1600 [facility] Stop: 12/08/16 16:01 Warfarin Sodium (Coumadin) 5 mg GTUBE 1600 [facility] Stop: 12/08/16 16:01 Last Admin: 12/08/16 15:51 Dose: 5 mg Warfarin Sodium (Coumadin) 2.5 mg GTUBE 1800 [facility] Stop: 12/09/16 18:01 Last Admin: 12/09/16 17:40 Dose: 2.5 mg Warfarin Sodium (Coumadin) 1.25 mg GTUBE 1800 [facility] Stop: 12/11/16 18:01 Last Admin: 12/11/16 17:49 Dose: 1.25 mg Warfarin Sodium (Coumadin) 3 mg PO 1800 [facility] Stop: 12/12/16 18:01 Last Admin: 12/12/16 18:09 Dose: 3 mg Warfarin Sodium (Coumadin) 2.5 mg PO 12/13/16@1800 ONE Stop: 12/13/16 18:01 Last Admin: 12/13/16 18:33 Dose: 2.5 mg Warfarin Sodium (Coumadin) 2.5 mg PO 1800 [facility] Last Admin: 12/14/16 17:00 Dose: 2.5 mg Warfarin Sodium (Coumadin) 1 mg PO DAILY@1800 [facility] Stop: 12/15/16 18:01 Last Admin: 12/15/16 17:59 Dose: 1 mg Warfarin Sodium (Coumadin) 2 mg PO 1800 [facility] Last Admin: 12/18/16 18:59 Dose: 2 mg Warfarin Sodium (Coumadin) 2 mg GTUBE 1800 [facility] Last Admin: 12/20/16 18:38 Dose: 2 mg Warfarin Sodium (Coumadin) 2.5 mg PO 1800 [facility] Last Admin: 12/21/16 17:43 Dose: 2.5 mg Warfarin Sodium (Coumadin) 4 mg PO ONETIME ONE Stop: 12/22/16 16:01 Last Admin: 12/22/16 16:23 Dose: 4 mg - Exam General: alert, oriented, cooperative Lungs: Normal respiratory effort Psy/Mental Status: alert, normal affect, normal mood - Problem List & Annotations (1) Pneumonia SNOMED Code(s): 031702924 Code(s): J18.9 - PNEUMONIA, UNSPECIFIED ORGANISM Status: Acute Current Visit: No Annotation/Comment:: Start Rocephin and Azithromycin (2) Atrial fibrillation SNOMED Code(s): 19673439 Code(s): I48.91 - UNSPECIFIED ATRIAL FIBRILLATION Status: Resolved Current Visit: No (3) Fatigue SNOMED Code(s): 11015716 Code(s): R53.83 - OTHER FATIGUE Status: Resolved Current Visit: No Qualifiers: Fatigue type: chronic, unspecified Qualified Code(s): R53.82 - Chronic fatigue, unspecified (4) Amiodarone pulmonary toxicity SNOMED Code(s): 42769924 Code(s): J98.4 - OTHER DISORDERS OF LUNG; T46.2X5A - ADVERSE EFFECT OF OTHER ANTIDYSRHYTHMIC DRUGS, INIT ENCNTR Status: Acute Current Visit: Yes (5) MDD (major depressive disorder) SNOMED Code(s): 318515070, 797959961 Code(s): F32.9 - MAJOR DEPRESSIVE DISORDER, SINGLE EPISODE, UNSPECIFIED Status: Acute Current Visit: Yes Qualifiers: Active/Remission status: currently active (6) Pacemaker pocket hematoma SNOMED Code(s): 425444156 Code(s): T82.837A - HEMORRHAGE DUE TO CARDIAC PROSTH DEV/GRFT, INITIAL ENCOUNTER Status: Chronic Current Visit: Yes Qualifiers: Encounter type: subsequent encounter Qualified Code(s): T82.837D - Hemorrhage due to cardiac prosthetic devices, implants and grafts, subsequent encounter (7) Dysphagia SNOMED Code(s): 96162065, 554335717 Code(s): R13.10 - DYSPHAGIA, UNSPECIFIED Status: Acute Current Visit: No Qualifiers: Dysphagia type: oropharyngeal phase Qualified Code(s): R13.12 - Dysphagia, oropharyngeal phase - Problem List Review Problem List Initiated/Reviewed/Updated: Yes - My Orders Last 24 Hours: My Active Orders 12/23/16 05:10 INR,PT,PROTHROMBIN TIME [COAG] DAILY - Assessment Assessment:: Discharge to home in the a.m. with home health and tube feedings. - Plan Plan:: 1. continue Lexapro. I told the patient it takes at least 2 weeks to notice the benefit. 2. Ativan 0.5 mg 3 times a day when necessary for anxiety. 3. Dietary to consider tube feedings at night. 4. Continue PT/OT.
--- NOTE | 2016-12-22 17:57 | PCM.DCSUM1 ---
Discharge Summary - Hospital Course Free Text/Narrative:: Hospital course-patient was admitted for tube feedings. He had a swallowing study and was not able to swallow. He has some diarrhea so they added fiber which helped. He had some abdominal bloating and was evaluated by surgery and felt to be benign. He had depression while he was here. Psychiatry saw him twice on [facility] site. He stopped his SSRI put on Seroquel at night. His anxiety and Ativan was used. He was on prednisone and Lasix. He met his goals for PT/OT. He will be discharged to home on PT/OT. Brief History: This is an 86-year-old male that was admitted from [place] for rehabilitation. He was admitted there for respiratory distress , due to amiodarone. He needed up to 15 L of oxygenation but is now down to only 2 L. He also had a.GI bleed, a normal upper endoscopy except for gastritis. He also has a fibrillation he takes Coumadin. He complains of feeling generally weak and able to ambulate independently hence the need for sitting bed admission for physical strengthening. During the hospital admission, he has problems with insomnia, eventually needing Benadryl to help sleep. He is a severely depressed and keeps ruminating about . He has hypertension that is stable , and dysphagia for which no cause was identified. He had a PEG tube placed for feeding. During that hospital stay, pneumonia was identified and treated appropriately, he would be finishing a course of Augmentin for 5 days in this admission - Discharge Data Discharge Date: 12/23/16 Discharge Disposition: Home, W Home Health Agency 06 Condition: Fair - Discharge Diagnosis/Problem(s) (1) Pneumonia SNOMED Code(s): 488508463 ICD Code: J18.9 - PNEUMONIA, UNSPECIFIED ORGANISM Status: Acute Current Visit: No Problem Details: Start Rocephin and Azithromycin (2) Atrial fibrillation SNOMED Code(s): 20095960 ICD Code: I48.91 - UNSPECIFIED ATRIAL FIBRILLATION Status: Resolved Current Visit: No (3) Fatigue SNOMED Code(s): 10829173 ICD Code: R53.83 - OTHER FATIGUE Status: Resolved Current Visit: No Qualifiers: Fatigue type: chronic, unspecified Qualified Code(s): R53.82 - Chronic fatigue, unspecified (4) Amiodarone pulmonary toxicity SNOMED Code(s): 66335023 ICD Code: J98.4 - OTHER DISORDERS OF LUNG; T46.2X5A - ADVERSE EFFECT OF OTHER ANTIDYSRHYTHMIC DRUGS, INIT ENCNTR Status: Acute Current Visit: Yes (5) MDD (major depressive disorder) SNOMED Code(s): 783536291, 606739181 ICD Code: F32.9 - MAJOR DEPRESSIVE DISORDER, SINGLE EPISODE, UNSPECIFIED Status: Acute Current Visit: Yes Qualifiers: Active/Remission status: currently active (6) Pacemaker pocket hematoma SNOMED Code(s): 259317900 ICD Code: T82.837A - HEMORRHAGE DUE TO CARDIAC PROSTH DEV/GRFT, INITIAL ENCOUNTER Status: Chronic Current Visit: Yes Qualifiers: Encounter type: subsequent encounter Qualified Code(s): T82.837D - Hemorrhage due to cardiac prosthetic devices, implants and grafts, subsequent encounter (7) Dysphagia SNOMED Code(s): 62455784, 971002910 ICD Code: R13.10 - DYSPHAGIA, UNSPECIFIED Status: Acute Current Visit: No Qualifiers: Dysphagia type: oropharyngeal phase Qualified Code(s): R13.12 - Dysphagia, oropharyngeal phase - Patient Summary/Data Consults: Consultations 12/05/16 15:01 OT Evaluation and Treatment [CONS] Routine Please Evaluate and Treat. OT Reason for Consult: Strengthening This query below is only for informational purposes and is not editable. Admission Diagnosis/Problem: Pneumonia PT Evaluation and Treatment [CONS] Routine Please Evaluate and Treat. PT Reason for Consult: Strengthening This query below is only for informational purposes and is not editable. Admission Diagnosis/Problem: Pneumonia 12/08/16 09:01 Consult to Speech Language Pathology [BONUS CLERK Evaluation and Treatment] [CONS] Routine Please Evaluate and Treat BONUS CLERK Reason for Consult: Swallow This query below is only for informational purposes and is not editable. Admission Diagnosis/Problem: Pneumonia 12/14/16 10:03 Consult to Speech Language Pathology [BONUS CLERK Evaluation and Treatment] [CONS] Routine Please Evaluate and Treat BONUS CLERK Reason for Consult: Other (Type Response) Pending Discharge: Neuromuscular Elect Stim. with oral motor pharyngeal exercise This query below is only for informational purposes and is not editable. Admission Diagnosis/Problem: Pneumonia - Patient Instructions Diet, Other: Tube feedings, see med list. Activity: As Tolerated Driving: Do Not Drive Showering/Bathing: May Shower Notify Provider of: Increased Pain, Drainage, Nausea and/or Vomiting Other/Special Instructions: 1. Recheck with Dr. Darci Saha in 7-10 days. 2. PT/OT and home health. Home health for instructions and medication, strengthening, ambulation. 3.INR in 4 days - Discharge Plan Prescriptions/Med Rec: Furosemide [Lasix Oral Soln] 20 mg PO DAILY #300 ml LORazepam [Ativan] 0.25 mg GTUBE TID PRN #45 tablet PRN Reason: Anxiety QUEtiapine [SEROquel] 12.5 mg GTUBE BEDTIME #15 tablet Valproic Acid [Depakene Syrup] 125 mg GTUBE BEDTIME #75 ml Warfarin [Coumadin] 2 mg PO ASDIRECTED #45 tablet predniSONE [predniSONE 5 MG/5 ML] 30 mg PO DAILY #900 ml Home Medications: Home Meds Atovaquone 1,500 mg GTUBE DAILY 11/21/16 [History] Simvastatin [Zocor] 20 mg GTUBE BEDTIME 11/22/16 [History] Acetaminophen [Mapap] 500 mg GTUBE Q4H PRN 12/05/16 [History] Docusate Sodium [Docu Liquid] 100 mg GTUBE BID PRN 12/05/16 [History] Melatonin 12 mg GTUBE BEDTIME 12/05/16 [History] Phytonadione [Vitamin K] 100 mcg GTUBE DAILY 12/05/16 [History] diphenhydrAMINE [Benadryl] 50 mg GTUBE BEDTIME PRN 12/05/16 [History] Furosemide [Lasix Oral Soln] 20 mg PO DAILY #300 ml 12/22/16 [Rx] LORazepam [Ativan] 0.25 mg GTUBE TID PRN #45 tablet 12/22/16 [Rx] Loperamide [Imodium AD] 2 mg GTUBE DAILY PRN #0 tablet 12/22/16 [Rx] Omeprazole Suspension 20 mg GTUBE BID #300 ml 12/22/16 [Rx] QUEtiapine [SEROquel] 12.5 mg GTUBE BEDTIME #15 tablet 12/22/16 [Rx] Valproic Acid [Depakene Syrup] 125 mg GTUBE BEDTIME #75 ml 12/22/16 [Rx] Warfarin [Coumadin] 2 mg PO ASDIRECTED #45 tablet 12/22/16 [Rx] predniSONE [predniSONE 5 MG/5 ML] 30 mg PO DAILY #900 ml 12/22/16 [Rx] - Discharge Summary/Plan Comment DC Time >30 min.: Yes - Patient Data Vitals - Most Recent: Last Vital Signs Temp 207.5 F H 12/22/16 07:41 Pulse 84 12/22/16 07:41 Resp 20 12/22/16 07:41 BP 125/72 12/22/16 07:41 Pulse Ox 94 L 12/22/16 14:00 Weight - Most Recent: 156 lb 3.2 oz I&O - Last 24 hours: Intake & Output 12/22/16 12/22/16 12/22/16 06:59 14:59 22:59 Intake Total 1160 1060 Balance 1160 1060 Lab Results - Last 24 hrs: Laboratory Results - last 24 hr 12/22/16 Range/Units 06:00 PT 19.1 H (8.7-11.1) INR 1.87 H (0.89-1.13) Med Orders - Current: Current Medications Acetaminophen (Tylenol Extra Strength) 500 mg GTUBE Q4H PRN PRN Reason: mild pain Omeprazole 20 mg/ Sodium (Bicarbonate 10 meq) 0 mg GTUBE BID [facility] Last Admin: 12/22/16 09:47 Dose: 10 ml Cyclosporine (Restasis) 1 each EYEBOTH BID [facility] Last Admin: 12/22/16 09:47 Dose: 1 drop Diphenhydramine HCl (Benadryl) 50 mg GTUBE BEDTIME PRN PRN Reason: Insomnia Last Admin: 12/08/16 21:16 Dose: 50 mg Docusate Sodium (Docu 50 Mg/5 Ml Liquid) 100 mg GTUBE BID PRN PRN Reason: Constipation Furosemide (Lasix) 20 mg GTUBE DAILY [facility] Last Admin: 12/22/16 09:47 Dose: 20 mg Loperamide HCl (Imodium Ad) 2 mg GTUBE DAILY PRN PRN Reason: Diarrhea Last Admin: 12/18/16 08:39 Dose: 2 mg Lorazepam (Ativan) 0.5 mg GTUBE TID PRN PRN Reason: Anxiety Last Admin: 12/19/16 08:46 Dose: 0.5 mg Melatonin (Melatonin) 12 mg GTUBE BEDTIME [facility] Last Admin: 12/21/16 20:44 Dose: 12 mg Atovaquone [ Atovaquone] 1,500mg *Patient Own Med 1,500 mg GTUBE DAILY [facility] Last Admin: 12/22/16 09:48 Dose: 1,500 mg Phytonadione (Vitamin K) 100 mcg .XX DAILY [facility] Last Admin: 12/22/16 09:47 Dose: 100 mcg Prednisone (Prednisone) 30 mg GTUBE DAILY [facility] Last Admin: 12/22/16 09:47 Dose: 30 mg Quetiapine Fumarate (Seroquel) 12.5 mg GTUBE BEDTIME [facility] Last Admin: 12/21/16 20:45 Dose: 12.5 mg Saccharomyces Boulardii (Florastor) 250 mg GTUBE DAILY [facility] Last Admin: 12/22/16 09:46 Dose: 250 mg Simvastatin (Zocor) 20 mg GTUBE BEDTIME [facility] Last Admin: 12/21/16 20:45 Dose: 20 mg Trypsin (Granulex [place]) 0 gm TOP ASDIRECTED PRN PRN Reason: Other Last Admin: 12/22/16 07:54 Dose: 1 spray Valproic Acid (Depakene Syrup) 125 mg GTUBE BEDTIME [facility] Last Admin: 12/21/16 20:43 Dose: 125 mg Warfarin Sodium (Coumadin) 0 mg GTUBE ASDIRECTED [facility] Discontinued Medications Amoxicillin/Clavulanate Potassium (Augmentin 875 Mg/125 Mg) 1 tab GTUBE BID [facility] Stop: 12/08/16 09:01 Last Admin: 12/08/16 09:34 Dose: 1 tab Omeprazole 20 mg/ Sodium (Bicarbonate 10 meq) 0 mg PO BID [facility] Last Admin: 12/08/16 09:43 Dose: 10 ml Omeprazole 600 mg/ Sodium (Bicarbonate 300 meq) 0 mg PO .STK-MED ONE Stop: 12/22/16 16:32 Diphenhydramine HCl (Benadryl) 50 mg GTUBE BEDTIME PRN PRN Reason: Insomnia Last Admin: 12/05/16 21:38 Dose: 50 mg Diphenhydramine HCl (Benadryl) 50 mg PO .STK-MED ONE Stop: 12/05/16 21:39 Escitalopram Oxalate (Lexapro) 10 mg GTUBE DAILY [facility] Last Admin: 12/09/16 08:12 Dose: 10 mg Escitalopram Oxalate (Lexapro) 20 mg GTUBE DAILY [facility] Last Admin: 12/13/16 09:56 Dose: 20 mg Lidocaine HCl (Xylocaine 1%) 1 ml INJECT ONETIME ONE Stop: 12/16/16 08:52 Last Admin: 12/16/16 08:10 Dose: 0.5 ml Loperamide HCl (Imodium) 2 mg PO DAILY PRN PRN Reason: Diarrhea Loperamide HCl (Imodium) 2 mg GTUBE DAILY PRN PRN Reason: Diarrhea Last Admin: 12/07/16 21:07 Dose: 2 mg Lorazepam (Ativan) 0.5 mg PO TID PRN PRN Reason: Anxiety Omeprazole (Suspension 20mg) 20 mg GTUBE BID [facility] Last Admin: 12/05/16 21:37 Dose: 20 mg Pantoprazole Sodium (Protonix Iv) Confirm Administered Dose 40 mg .ROUTE .STK -MED ONE Stop: 12/22/16 09:45 Last Admin: 12/22/16 10:22 Dose: Not Given Phytonadione (Vitamin K) 100 mcg PO DAILY [facility] Last Admin: 12/08/16 09:38 Dose: 100 mcg Prednisone (Prednisone) 40 mg GTUBE DAILY [facility] Stop: 12/19/16 09:01 Last Admin: 12/19/16 08:51 Dose: 40 mg Quetiapine Fumarate (Seroquel) 12.5 mg GTUBE ONETIME ONE Stop: 12/13/16 14:21 Last Admin: 12/13/16 15:09 Dose: 12.5 mg Simvastatin (Zocor) 20 mg GTUBE BEDTIME [facility] Last Admin: 12/05/16 21:40 Dose: 20 mg Sodium Chloride (Saline Flush) 10 ml FLUSH DAILY [facility] Last Admin: 12/09/16 11:10 Dose: Not Given Warfarin Sodium (Coumadin) 1.25 mg PO 1600 [facility] Stop: 12/06/16 16:01 Last Admin: 12/06/16 16:38 Dose: 1.25 mg Warfarin Sodium (Coumadin) 2.5 mg PO 1600 [facility] Stop: 12/07/16 16:01 Last Admin: 12/07/16 15:58 Dose: 2.5 mg Warfarin Sodium (Coumadin) 5 mg PO 1600 [facility] Stop: 12/08/16 16:01 Warfarin Sodium (Coumadin) 5 mg GTUBE 1600 [facility] Stop: 12/08/16 16:01 Last Admin: 12/08/16 15:51 Dose: 5 mg Warfarin Sodium (Coumadin) 2.5 mg GTUBE 1800 [facility] Stop: 12/09/16 18:01 Last Admin: 12/09/16 17:40 Dose: 2.5 mg Warfarin Sodium (Coumadin) 1.25 mg GTUBE 1800 [facility] Stop: 12/11/16 18:01 Last Admin: 12/11/16 17:49 Dose: 1.25 mg Warfarin Sodium (Coumadin) 3 mg PO 1800 [facility] Stop: 12/12/16 18:01 Last Admin: 12/12/16 18:09 Dose: 3 mg Warfarin Sodium (Coumadin) 2.5 mg PO 12/13/16@1800 ONE Stop: 12/13/16 18:01 Last Admin: 12/13/16 18:33 Dose: 2.5 mg Warfarin Sodium (Coumadin) 2.5 mg PO 1800 [facility] Last Admin: 12/14/16 17:00 Dose: 2.5 mg Warfarin Sodium (Coumadin) 1 mg PO DAILY@1800 [facility] Stop: 12/15/16 18:01 Last Admin: 12/15/16 17:59 Dose: 1 mg Warfarin Sodium (Coumadin) 2 mg PO 1800 [facility] Last Admin: 12/18/16 18:59 Dose: 2 mg Warfarin Sodium (Coumadin) 2 mg GTUBE 1800 [facility] Last Admin: 12/20/16 18:38 Dose: 2 mg Warfarin Sodium (Coumadin) 2.5 mg PO 1800 [facility] Last Admin: 12/21/16 17:43 Dose: 2.5 mg Warfarin Sodium (Coumadin) 4 mg PO ONETIME ONE Stop: 12/22/16 16:01 Last Admin: 12/22/16 16:23 Dose: 4 mg *Q Meaningful Use (DIS) - VTE *Q VTE Criteria *Q: - Stroke *Q Stroke Criteria *Q: - AMI *Q AMI Criteria *Q:
[2016-12-22] MEDS: Valproic Acid 250 MG/5 ML Syrup ML (473 ML Bottle) GTUBE SCH (21:11)
[2016-12-22] MEDS: Melatonin 3 MG Tab GTUBE SCH (21:11)
[2016-12-22] MEDS: QUEtiapine 25 MG Tab GTUBE SCH (21:14)
[2016-12-22] MEDS: Simvastatin 20 MG Tab GTUBE SCH (21:15)
[2016-12-23] MEDS: SODIUM BICARBONATE GTUBE SCH ×2 (09:36)
[2016-12-23] MEDS: OMEPRAZOLE 20 MG GTUBE SCH ×2 (09:36)
[2016-12-23] MEDS: [UNRECOGNIZED DRUG - OTHER] EYEBOTH SCH (09:37)
[2016-12-23] MEDS: Furosemide 20 MG Tab GTUBE SCH (09:38)
[2016-12-23] MEDS: predniSONE 10 MG Tab GTUBE SCH (09:38)
[2016-12-23] MEDS: Saccharomyces Boulardii (Probiotic) 250 MG Cap GTUBE SCH (09:38)
[2016-12-23] MEDS: Phytonadione 100 MCG Tab SCH (09:38)
[2016-12-23] MEDS: ATOVAQUONE 1500 MG GTUBE SCH (09:40)
[2016-12-23 13:42] VITALS: BP 106/60
--- NOTE | 2016-12-23 18:04 | PCM.SN ---
- Free Text/Narrative Note: Tube feedings set to meet calorie needs of 2280 Kcal due to malnutrition leading to low body weight, ducubitus ulcer. I estimate the time needed at this rate at least 2 months and perhaps longer even up to a year depending on response and further evaluation in the future.
== END 2016-12-23 10:53 | disposition home health service (06) | DRG 947 ==
LOC: FB.MS 12-05 14:35
PROVIDERS: ADMIT Family Medicine; ATTEND Family Medicine
DX: R53.1 Weakness (principal); J18.9 Pneumonia, unspecified organism; F33.2 Major depressive disorder, recurrent severe without psychotic features; E46 Unspecified protein-calorie malnutrition; R53.82 Chronic fatigue, unspecified; Z66 Do not resuscitate; J98.4 Other disorders of lung; T46.2X5D Adverse effect of other antidysrhythmic drugs, subsequent encounter; I10 Essential (primary) hypertension; I48.91 Unspecified atrial fibrillation; Z93.1 Gastrostomy status; R13.12 Dysphagia, oropharyngeal phase; E78.00 Pure hypercholesterolemia, unspecified; K21.9 Gastro-esophageal reflux disease without esophagitis; G40.909 Epilepsy, unspecified, not intractable, without status epilepticus; F51.01 Primary insomnia; Z87.891 Personal history of nicotine dependence; H91.90 Unspecified hearing loss, unspecified ear; K59.01 Slow transit constipation; T82.837D Hemorrhage due to cardiac prosthetic devices, implants and grafts, subsequent encounter; F41.9 Anxiety disorder, unspecified; Z68.23 Body mass index [BMI] 23.0-23.9, adult; Z79.01 Long term (current) use of anticoagulants; Z79.52 Long term (current) use of systemic steroids; Z88.2 Allergy status to sulfonamides; Z88.8 Allergy status to other drugs, medicaments and biological substances
CPT/HCPCS: 36415; 85610; 92526-GN; 92610-GN; 97110-GO; 97110-GP; 97116-GP; 97162-GP; 97166-GO; 97530-GO; 97530-GP; 97535-GO; A9270-GY; J3490; J7050

== ENCOUNTER 2016-12-31 12:20 | Observation (INO) | payer MEDICARE, BC ==
--- NOTE | 2016-12-31 13:59 | PCM.HP ---
H&P History of Present Illness - General Date of Service: 12/31/16 Admit Problem/Dx: Admission Diagnosis/Problem Admission Diagnosis/Problem Anemia Source of Information: Patient, Family History Limitations: Reports: No limitations - History of Present Illness Initial Comments - Free Text/Narative: 86-year-old male was brought in because of weakness. He was using to discharge from swing bed. His been fairly independent but over the last 2-3 days has been weaker and today while getting up from sitting position in a chair he fell. The is concerned that she's unable to take care of him because of his de-conditioning and increasing weakness. He has a history of atrial fibrillation ,chronic, respiratory failure, anemia, major depression, and dysphagia from unknown cause. He uses tube feedings because of this. He complains of no chest pain fever or chills his hemoglobin the clinic 2 days ago was 9.0. The family talked to Dr. brewer was is neighbor he walked over to the house advised him to come to the ER to be checked out the hopped get 1 or 2 units of blood. - Related Data Allergies/Adverse Reactions: Allergies Allergy/AdvReac Type Severity Reaction Status Date / Time amiodarone AdvReac Cardiac Verified 12/31/16 12:50 Arrest lorazepam [From Ativan] AdvReac Weakness Verified 12/31/16 12:50 Sulfa (Sulfonamide AdvReac Hives Verified 12/31/16 12:50 Antibiotics) Home Medications: Home Meds Simvastatin [Zocor] 20 mg GTUBE BEDTIME 11/22/16 [History] Docusate Sodium [Docu Liquid] 10 mg GTUBE BID PRN 12/05/16 [History] Phytonadione [Vitamin K] 100 mcg GTUBE DAILY PRN 12/05/16 [History] Omeprazole Suspension 20 mg GTUBE BID #300 ml 12/22/16 [Rx] QUEtiapine [SEROquel] 12.5 mg GTUBE BEDTIME #15 tablet 12/22/16 [Rx] Valproic Acid [Depakene Syrup] 125 mg GTUBE BEDTIME #75 ml 12/22/16 [Rx] predniSONE [predniSONE 5 MG/5 ML] 30 mg PO DAILY #900 ml 12/22/16 [Rx] Acetaminophen [Mapap] 15 ml GTUBE Q4HR PRN 12/31/16 [History] Furosemide [Lasix Oral Soln] 2 ml GTUBE DAILY 12/31/16 [History] Loperamide [Imodium] 10 ml GTUBE DAILY PRN 12/31/16 [History] Melatonin 12 ml GTUBE DAILY 12/31/16 [History] Warfarin [Coumadin] 2 mg PO DAILY 12/31/16 [History] diphenhydrAMINE [Benadryl] 30 ml GTUBE BEDTIME PRN 12/31/16 [History] Past Medical History HEENT History: Reports: Hard of hearing, Other (see below) Other HEENT History: wears glasses Cardiovascular History: Reports: High cholesterol, Hypertension, Pacemaker, Other (see below) Other Cardiovascular History: New Atrial Fibrillation, dx Fall 2015, placed on Coumadin. Cardioversion 10/24/2016, cardiac arrest 11/07/2016, pacer/ICD placement 10/2016 Respiratory History: Reports: Other (see below) Other Respiratory History: Bilateral pneumonia dx 11/10/16 Gastrointestinal History: Reports: Gastritis, GERD, Other (see below) Other Gastrointestinal History: GASTRODUODENITIS; ACHALASIA OF THE CRICOPHARYNGEUS MUSCLE; DIVERTICULITIS Musculoskeletal History: Reports: Other (see below) Other Musculoskeletal History: WRIST ARTHRITIS Neurological History: Reports: Seizure, Other (see below) Other Neuro History: Experienced seizures several years ago, has been on Depakote. Psychiatric History: Reports: Depression Hematologic History: Reports: Other (see below) Other Hematologic History: PERNICIOUS ANEMIA - Infectious Disease History Infectious Disease History: Reports: Chicken pox, Measles, Mumps - Past Surgical History HEENT Surgical History: Reports: Laser surgery, Other (see below) Other HEENT Surgeries/Procedures: DILATION OF ESOPHAGUS ;bilateral eyes, surgical enlargement of the upper esophagus(cricopharyngotomy) Cardiovascular Surgical History: Reports: AICD GI Surgical History: Reports: Other (see below) Other GI Surgeries/Procedures: hemorroidectomy; COLONIC POLYPS Social & Family History - Family History Family Medical History: Noncontributory - Tobacco Use Smoking Status *Q: Former Smoker Years of Tobacco use: 10 Packs/Tins Daily: 1 Used Tobacco, but Quit: Yes Month Tobacco Last Used: unknown Second Hand Smoke Exposure: No - Caffeine Use Caffeine Use: Reports: None - Alcohol Use Days Per Week of Alcohol Use: 7 Number of Drinks Per Day: 1 Total Drinks Per Week: 7 - Recreational Drug Use Recreational Drug Use: No H&P Review of Systems - Review of Systems: Review Of Systems: ROS reveals no pertinent complaints other than HPI. Exam - Exam Exam: See Below - Vital Signs Vital Signs: Last Vital Signs Temp 97.4 F 12/31/16 12:55 Pulse 74 12/31/16 12:55 Resp 18 12/31/16 12:55 BP 123/81 12/31/16 12:55 Pulse Ox 93 L 12/31/16 12:55 Weight: 66.678 kg - Exam Quality Assessment: supplemental oxygen, other (pale) General: alert, oriented, cooperative, lethargic Cardiovascular: irregular rhythm (Male) Exam: No hernia Rectal (Males) Exam: Deferred Back Exam: normal inspection Skin: ecchymosis Psychiatric: depressed - Patient Data Result Diagrams: 12/31/16 12:56 12/31/16 12:56 *Q Meaningful Use (ADM) - VTE *Q VTE Criteria *Q: VTE Pharmacological Contraindications *Q: HIT - Stroke *Q Stroke Criteria *Q: - AMI *Q AMI Criteria *Q: - Problem List (1) Fall SNOMED Code(s): 0256323, 325251821 ICD Code: W19.XXXA - UNSPECIFIED FALL, INITIAL ENCOUNTER Status: Acute Current Visit: Yes Qualifiers: Encounter type: initial encounter Qualified Code(s): W19.XXXA - Unspecified fall, initial encounter (2) Thrombocytopenia SNOMED Code(s): 094558445 ICD Code: D69.6 - THROMBOCYTOPENIA, UNSPECIFIED Status: Acute Current Visit: Yes (3) Anemia SNOMED Code(s): 445600634 ICD Code: D64.9 - ANEMIA, UNSPECIFIED Status: Chronic Current Visit: No Qualifiers: Anemia type: unspecified type Qualified Code(s): D64.9 - Anemia, unspecified (4) MDD (major depressive disorder) SNOMED Code(s): 592605482, 301061387 ICD Code: F32.9 - MAJOR DEPRESSIVE DISORDER, SINGLE EPISODE, UNSPECIFIED Status: Chronic Current Visit: No Qualifiers: Major depression recurrence: recurrent Active/Remission status: currently active Major depression episode severity: severe Psychotic features: without psychotic features Qualified Code(s): F33.2 - Major depressive disorder, recurrent severe without psychotic features (5) Palliative care status SNOMED Code(s): 436426615 ICD Code: Z51.5 - ENCOUNTER FOR PALLIATIVE CARE Status: Acute Current Visit: No (6) A-fib SNOMED Code(s): 99788136 ICD Code: I48.91 - UNSPECIFIED ATRIAL FIBRILLATION Status: Chronic Current Visit: No Qualifiers: Atrial fibrillation type: chronic Qualified Code(s): I48.2 - Chronic atrial fibrillation (7) Fatigue SNOMED Code(s): 90390730 ICD Code: R53.83 - OTHER FATIGUE Status: Chronic Current Visit: No Qualifiers: Fatigue type: chronic, unspecified Qualified Code(s): R53.82 - Chronic fatigue, unspecified (8) Amiodarone pulmonary toxicity SNOMED Code(s): 22678832 ICD Code: J98.4 - OTHER DISORDERS OF LUNG; T46.2X5A - ADVERSE EFFECT OF OTHER ANTIDYSRHYTHMIC DRUGS, INIT ENCNTR Status: Acute Current Visit: No (9) Dysphagia SNOMED Code(s): 21530370, 374891699 ICD Code: R13.10 - DYSPHAGIA, UNSPECIFIED Status: Acute Current Visit: No Qualifiers: Dysphagia type: oropharyngeal phase Qualified Code(s): R13.12 - Dysphagia, oropharyngeal phase Problem List Initiated/Reviewed/Updated: Yes Orders Last 24hrs: Active Orders 24 hr Category Date Time Status Patient Status Manage Transfer [TRANSFER] Routine ADT 12/31/16 13:54 Active Patient Status [ADT] Routine ADT 12/31/16 13:49 Active Bedrest Bedside Commode [RC] ASDIRECTED Care 12/31/16 13:49 Active Height and Weight [RC] DAILY Care 12/31/16 13:49 Active Intake and Output [RC] QSHIFT Care 12/31/16 13:51 Active Oxygen Therapy [RC] PRN Care 12/31/16 13:49 Active Up With Assistance [RC] ASDIRECTED Care 12/31/16 13:49 Active VTE/DVT Education [RC] Per Unit Routine Care 12/31/16 13:49 Active Vital Signs [RC] Q8H Care 12/31/16 13:49 Active OT Evaluation and Treatment [CONS] Routine Cons 12/31/16 13:49 Active PT Evaluation and Treatment [CONS] Routine Cons 12/31/16 13:49 Active CBC WITH AUTO DIFF [HEME] AM Lab 01/01/17 05:11 Ordered RED BLOOD CELLS LP [BBK] Urgent Lab 12/31/16 12:56 Results Furosemide [Lasix] Med 01/01/17 09:00 Ordered 20 mg IVPUSH DAILY Sodium Chloride 0.9% [Normal Saline] 250 ml Med 12/31/16 14:00 Ordered IV ASDIRECTED Sodium Chloride 0.9% [Saline Flush] Med 12/31/16 13:49 Ordered 10 ml FLUSH ASDIRECTED PRN Antiembolic Hose [OM.PC] Per Unit Routine Oth 12/31/16 13:51 Ordered Peripheral IV Insertion Adult [OM.PC] Routine Oth 12/31/16 13:49 Ordered Transfuse Red Blood Cells [COMM] Urgent Oth 12/31/16 13:49 Ordered VTE Pharmacological Contraindications [AST] Per Unit Oth 12/31/16 13:49 Ordered Routine Resuscitation Status Routine Resus Stat 12/31/16 13:49 Ordered Medication Orders Furosemide (Lasix) 20 mg IVPUSH DAILY [facility] Sodium Chloride (Normal Saline) 250 mls @ 100 mls/hr IV ASDIRECTED [facility]ERT Sodium Chloride (Saline Flush) 10 ml FLUSH ASDIRECTED PRN PRN Reason: Keep Vein Open Assessment/Plan Comment:: his hemoglobin is 8.7, because of his current symptoms it's reasonable to me [place] 1 minute blood. We'll give Lasix to avoid respiratory distress from CHF. While here will evaluate ADLs, and disposition upon discharge. Repeat a CBC in the morning, and continue his home medications at this time, including tube feedings.
[2016-12-31] MEDS ORDERED: Sodium Chloride 0.9% 250 ML IV SCH (14:00)
[2016-12-31] MEDS: Sodium Chloride 0.9% 10 ML Syringe FLUSH PRN (14:32)
[2016-12-31] MEDS ORDERED: WARFARIN 2 MG PO SCH (16:00)
[2016-12-31] MEDS ORDERED: QUETIAPINE 25 MG GTUBE SCH (21:00)
[2016-12-31] MEDS ORDERED: VALPROIC ACID 250 MG/5 ML GTUBE SCH (21:00)
[2016-12-31] MEDS ORDERED: SIMVASTATIN 40 MG GTUBE SCH (21:00)
--- NOTE | 2016-12-31 23:25 | ER ---
DATE SEEN: 12/31/2016 TIME SEEN: 1:00 p.m. REASON FOR VISIT: Weakness. HISTORY OF PRESENT ILLNESS: This is an 86-year-old male, who comes in because of weakness. He was recently discharged from swing bed at home today. While trying to walk from the chair, he fell. He hit his right hip and has a bruise, complains of no pain though. PAST MEDICAL HISTORY: Respiratory failure, CHF, atrial fibrillation, weakness, depression. ALLERGIES TO MEDICATIONS: Reviewed. PHYSICAL EXAMINATION: GENERAL: He is not in any cardiopulmonary distress. He is weak and cachectic. VITAL SIGNS: Temperature is normal. Pulse is 74 and oxygenation 93% on room air. ENT: Negative. CHEST: Clear. ABDOMEN: Soft. SKIN: Mild pallor. Mild bruising on the right hip. LABORATORY DATA: Hemoglobin is low at 8.7, platelets 32. IMPRESSION: 1. Anemia. 2. Generalized weakness. PLAN: Admit for transfusion and observation care. /[id number] BAS[facility]/CHERISE
[2017-01-01] MEDS: Sodium Chloride 0.9% 10 ML Syringe FLUSH PRN (08:11)
[2017-01-01] MEDS ORDERED: Furosemide 20 MG/2 ML VIAL IVPUSH SCH (09:00)
[2017-01-01] MEDS: PREDNISONE 30 MG GTUBE SCH ×2 (09:35)
[2017-01-01 13:02] VITALS: BP 146/88
--- NOTE | 2017-01-01 13:27 | PN ---
DATE SEEN: 01/01/2017 HISTORY OF PRESENT ILLNESS: An 86-year-old male, who was admitted yesterday for anemia, weakness. This morning, he feels better. He has been able to walk on the [place]. The family, however, is still worried about his safety at home. He personally wants to go home. He complains of no headache. He has problems swallowing and has had a PEG tube which has caused him significant distress. REVIEW OF SYSTEMS: No back pain, chest pain, or shortness of breath. No fever. ALLERGIES: Please see the electronic record. PHYSICAL EXAMINATION: VITAL SIGNS: His blood pressure 155/82, temperature is normal, oxygenation 99% on 2 L. EARS, NOSE, AND THROAT: Dry mucous membranes and mouth. NECK: Supple. CHEST: Clear anteriorly. CARDIOVASCULAR: Normal. ABDOMEN: Soft. EXTREMITIES: No edema. MENTAL STATUS: He is alert, has flat affect, but answers questions well. Normal intelligence and memory. LAB STUDIES: Today hemoglobin is up to 10.2. IMPRESSION: 1. Anemia of chronic disease. 2. Generalized physical weakness. 3. Depression. 4. Dysphagia. 5. Atrial fibrillation. PLAN: I will discuss with the family, but I believe that he van go home. May need iron replacement to keep his hemoglobin up. The rest of his home medications were restarted yesterday. Addendum Patient's family did agree to take him home. We discharged him ,follow with Dr Arce next week /[id number] BASIA/CHERISE [place]
[2017-01-06] MEDS ORDERED: WARFARIN 2 MG PO SCH (16:00)
== END 2017-01-01 13:30 | disposition home health service (06) ==
LOC: FB.ED 12:20 → FB.MS 13:47
PROVIDERS: ADMIT Family Medicine; ATTEND Family Medicine
DX: D64.9 Anemia, unspecified (principal); D69.6 Thrombocytopenia, unspecified; F33.2 Major depressive disorder, recurrent severe without psychotic features; Z51.5 Encounter for palliative care; I48.91 Unspecified atrial fibrillation; R53.82 Chronic fatigue, unspecified; J98.4 Other disorders of lung; R13.12 Dysphagia, oropharyngeal phase; Z88.2 Allergy status to sulfonamides; Z88.8 Allergy status to other drugs, medicaments and biological substances; Z79.899 Other long term (current) drug therapy; W19.XXXA Unspecified fall, initial encounter; Z79.01 Long term (current) use of anticoagulants; Z95.0 Presence of cardiac pacemaker; I10 Essential (primary) hypertension; K21.9 Gastro-esophageal reflux disease without esophagitis; Z98.890 Other specified postprocedural states; Z87.891 Personal history of nicotine dependence
CPT/HCPCS: 36415; 36430; 80053; 83880; 85025; 85610; 86850; 86900; 86901; 86920; 86922; 99283; 99285; A9270; G0378; J1940; J7050; P9016

== ENCOUNTER 2017-04-09 18:49 | Inpatient (IN) | payer MEDICARE, BC ==
[2017-04-09] MEDS ORDERED: Albuterol/Ipratropium 3.0-0.5 MG/3 ML Neb Soln NEB ONE (19:08)
[2017-04-09] MEDS ORDERED: methylPREDNISolone Sodium Succinate 125 MG/2 ML SDV IVPUSH ONE (19:08)
[2017-04-09] MEDS ORDERED: Furosemide 40 MG/4 ML VIAL IVPUSH ONE (21:05)
[2017-04-09] MEDS ORDERED: Furosemide 20 MG/2 ML VIAL IVPUSH ONE (21:06)
[2017-04-09] MEDS ORDERED: Albuterol 0.083% 2.5 MG/3 ML Neb Soln NEB PRN (21:36)
--- NOTE | 2017-04-09 22:11 | EDM.PDOC ---
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 His pulse ox was 80% on 2 liters O2 by NC. No cough. pt is a poor historian. Onset: Gradual Onset Date: 04/08/17 Onset Time: 07:00 - Related Data Allergies Allergy/AdvReac Type Severity Reaction Status Date / Time amiodarone AdvReac Cardiac Verified 04/09/17 19:10 Arrest lorazepam [From Ativan] AdvReac Weakness Verified 04/09/17 19:10 Sulfa (Sulfonamide AdvReac Hives Verified 04/09/17 19:10 Antibiotics) Home Meds: Home Meds Simvastatin [Zocor] 20 mg GTUBE BEDTIME 11/22/16 [History] Phytonadione [Vitamin K] 100 mcg GTUBE DAILY PRN 12/05/16 [History] Valproic Acid [Depakene Syrup] 125 mg GTUBE BEDTIME #75 ml 12/22/16 [Rx] Acetaminophen [Mapap] 15 ml GTUBE Q4HR PRN 12/31/16 [History] Furosemide [Lasix Oral Soln] 2 ml GTUBE ASDIRECTED 12/31/16 [History] Loperamide [Imodium] 10 ml GTUBE DAILY PRN 12/31/16 [History] Melatonin 12 ml GTUBE DAILY 12/31/16 [History] Warfarin [Coumadin] 3.5 mg PO DAILY 12/31/16 [History] diphenhydrAMINE [Benadryl] 30 ml GTUBE BEDTIME PRN 12/31/16 [History] Omeprazole Suspension 10 mg GTUBE BID 04/09/17 [History] predniSONE [predniSONE 5 MG/5 ML] 10 mg PO DAILY 04/09/17 [History] Past Medical History HEENT History: Reports: Hard of Hearing, Other (See Below) Other HEENT History: wears glasses Cardiovascular History: Reports: High Cholesterol, Hypertension, Pacemaker, Other (See Below) Other Cardiovascular History: New Atrial Fibrillation, dx Fall 2015, placed on Coumadin. Cardioversion 10/24/2016, cardiac arrest 11/07/2016, pacer/ICD placement 10/2016 Respiratory History: Reports: Other (See Below) Other Respiratory History: Bilateral pneumonia dx 11/10/16 Gastrointestinal History: Reports: Gastritis, GERD, Other (See Below) Other Gastrointestinal History: GASTRODUODENITIS; ACHALASIA OF THE CRICOPHARYNGEUS MUSCLE; DIVERTICULITIS Musculoskeletal History: Reports: Other (See Below) Other Musculoskeletal History: WRIST ARTHRITIS Neurological History: Reports: Seizure, Other (See Below) Other Neuro History: Experienced seizures several years ago, has been on Depakote. Psychiatric History: Reports: Depression Hematologic History: Reports: Other (See Below) Other Hematologic History: PERNICIOUS ANEMIA - Infectious Disease History Infectious Disease History: Reports: Chicken Pox, Measles, Mumps - Past Surgical History HEENT Surgical History: Reports: Laser Surgery, Other (See Below) GI Surgical History: Reports: Other (See Below) Social & Family History - Family History Family Medical History: Noncontributory - Tobacco Use Smoking Status *Q: Never Smoker Years of Tobacco use: 10 Packs/Tins Daily: 1 Used Tobacco, but Quit: Yes Month Tobacco Last Used: unknown Second Hand Smoke Exposure: No - Caffeine Use Caffeine Use: Reports: None - Alcohol Use Days Per Week of Alcohol Use: 7 Number of Drinks Per Day: 1 Total Drinks Per Week: 7 - Recreational Drug Use Recreational Drug Use: No ED ROS GENERAL - Review of Systems Review Of Systems: Unable To Obtain ED EXAM, GENERAL - Physical Exam Exam: See Below Exam Limited By: Physical Impairment General Appearance: Alert, WD/WN, Moderate Distress, Thin Eye Exam: Bilateral Eye: Normal Inspection Ears: Normal External Exam Ear Exam: Bilateral Ear: Auricle Normal Nose: Normal Inspection, Normal Mucosa Throat/Mouth: Normal Inspection, Normal Lips Head: Atraumatic, Normocephalic Neck: Normal Inspection Respiratory/Chest: Respiratory Distress, Decreased Breath Sounds, Prolonged Expiration Cardiovascular: Normal Peripheral Pulses, Regular Rate, Rhythm GI/Abdominal: Normal Bowel Sounds, Soft (Male) Exam: Deferred Rectal (Males) Exam: Deferred Back Exam: Other (tenderness) Extremities: Normal Inspection, Normal Range of Motion, Non-Tender Neurological: Alert, Oriented, CN II-XII Intact, Normal Gait Psychiatric: Normal Affect, Depressed Mood Skin Exam: Rash (mid lower spine) Lymphatic: No Adenopathy EKG INTERPRETATION EKG Date: 04/09/17 Time: 21:10 Rhythm: NSR Rate (Beats/Min): 97 [place]: Normal P-Wave: Present QRS: Normal ST-T: Normal QT: Normal Comparison: NA - No Prior EKG Course - Vital Signs Text/Narrative:: 86 y.o.w.m with h/o CAD, S/P pacemaker and defibrillator placement, 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 His pulse ox was 80% on 2 liters O2 by NC. No cough. pt is a poor historian. PE: weak appearing 86 y.o.w.m. with SOB Imaging: Atelectasis, poss infectious process as per Radiologist, pulm edema less likely. Labs: WBC, Neutr. and Lactic acid were all nl. Na was 128. Impression: hyponatremia, Anemia, Hypoxemia, Pulm fibrosis, Malfuction of epiglotis, Gastric feeding, DNI, Not DNR Tx: Duoneb, Solumedrol, Lasix. O2 4 liters by NC. Reexam: Improved Plan: Admit to ICU Last Recorded V/S: Last Vital Signs Temp 36.8 C 04/09/17 21:55 Pulse 105 H 04/09/17 21:55 Resp 35 H 04/09/17 21:55 BP 140/86 04/09/17 21:55 Pulse Ox 95 04/09/17 21:55 - Orders/Labs/Meds Orders: Active Orders 24 hr Category Date Time Status EKG Documentation Completion [RC] ASDIRECTED Care 04/09/17 21:04 Active RT Aerosol Therapy [RC] ASDIRECTED Care 04/09/17 19:08 Active Chest 1V Frontal [CR] Stat Exams 04/09/17 19:14 Taken Lumbar Spine 2 or 3V [CR] Stat Exams 04/09/17 19:08 Taken EKG 12 Lead [EK] Routine Ther 04/09/17 21:04 Ordered Medication Orders Albuterol (Proventil Neb Soln) 2.5 mg NEB Q2H PRN PRN Reason: Shortness Of Breath/wheezing Furosemide (Lasix Oral Soln) mg GTUBE ASDIRECTED ROBERT Loperamide HCl (Imodium) mg GTUBE DAILY PRN PRN Reason: Diarrhea Non-Formulary Medication (Acetaminophen [Mapap]) 15 ml GTUBE Q4HR PRN PRN Reason: Pain Non-Formulary Medication (Melatonin [Melatonin]) 12 ml GTUBE DAILY ROBERT Non-Formulary Medication (Omeprazole Suspension) 10 mg GTUBE BID ROBERT Non-Formulary Medication (Diphenhydramine [Benadryl]) 30 ml GTUBE BEDTIME PRN PRN Reason: Sleep Non-Formulary Medication (Prednisone [Prednisone 5 Mg/5 Ml]) 10 mg PO DAILY ROBERT Phytonadione (Vitamin K) 100 mcg .XX DAILY PRN PRN Reason: Bleeding Simvastatin (Zocor) 20 mg GTUBE BEDTIME ROBERT Valproic Acid (Depakene Syrup) 125 mg GTUBE BEDTIME ROBERT Warfarin Sodium (Coumadin) 3.5 mg PO DAILY ROBERT Labs: Laboratory Tests 04/09/17 04/09/17 04/09/17 Range/Units 19:10 19:10 19:10 WBC 9.1 (4.5-12.0) X10-3/uL RBC 2.98 L (4.30-5.75) x10(6)uL Hgb 9.6 L (11.5-15.5) g/dL Hct 29.4 L (30.0-51.3) % MCV 98.6 H (80-96) fL MCH 32.2 (27.7-33.6) pg MCHC 32.6 (32.2-35.4) g/dL RDW 13.7 (11.5-15.5) % Plt Count 154 (125-369) X10(3)uL MPV 8.8 (7.4-10.4) fL Add Manual Diff Yes Neutrophils % (Manual) 80 (46-82) % Band Neutrophils % 4 (0-6) % Lymphocytes % (Manual) 8 L (13-37) % Monocytes % (Manual) 8 (4-12) % Polychromasia Moderate H Sodium 128 L (135-145) mmol/L Potassium 4.3 (3.5-5.3) mmol/L Chloride 90 L D (100-110) mmol/L Carbon Dioxide 31 H (23-29) mmol/L BUN 33 H (8-23) mg/dL Creatinine 0.7 (0.6-1.3) mg/dL Est Cr Clr Drug Dosing TNP Estimated GFR (MDRD) > 60 (>60) BUN/Creatinine Ratio 47.1 H (9-20) Glucose 169 H (80-116) mg/dL Lactic Acid 1.6 (0.5-2.2) mmol/L Calcium 8.8 (8.6-10.2) mg/dL Troponin I (0.02-0.06) NG/ML B-Natriuretic Peptide (0-100) pg/mL 04/09/17 04/09/17 Range/Units 19:10 19:10 WBC (4.5-12.0) X10-3/uL RBC (4.30-5.75) x10(6)uL Hgb (11.5-15.5) g/dL Hct (30.0-51.3) % MCV (80-96) fL MCH (27.7-33.6) pg MCHC (32.2-35.4) g/dL RDW (11.5-15.5) % Plt Count (125-369) X10(3)uL MPV (7.4-10.4) fL Add Manual Diff Neutrophils % (Manual) (46-82) % Band Neutrophils % (0-6) % Lymphocytes % (Manual) (13-37) % Monocytes % (Manual) (4-12) % Polychromasia Sodium (135-145) mmol/L Potassium (3.5-5.3) mmol/L Chloride (100-110) mmol/L Carbon Dioxide (23-29) mmol/L BUN (8-23) mg/dL Creatinine (0.6-1.3) mg/dL Est Cr Clr Drug Dosing Estimated GFR (MDRD) (>60) BUN/Creatinine Ratio (9-20) Glucose (80-116) mg/dL Lactic Acid (0.5-2.2) mmol/L Calcium (8.6-10.2) mg/dL Troponin I 0.01 L (0.02-0.06) NG/ML B-Natriuretic Peptide 248 H (0-100) pg/mL Meds: Medications Generic Name Dose Route Start Last Admin Trade Name Freq PRN Reason Stop Dose Admin Albuterol 2.5 mg 04/09/17 21:36 Proventil Neb Soln NEB Q2H PRN Shortness Of Breath/wheezing Furosemide mg 04/09/17 22:30 Lasix Oral Soln GTUBE ASDIRECTED ROBERT Loperamide HCl mg 04/09/17 22:20 Imodium GTUBE DAILY PRN Diarrhea Non-Formulary Medication 15 ml 04/09/17 22:20 Acetaminophen [Mapap] GTUBE Q4HR PRN Pain Non-Formulary Medication 12 ml 04/10/17 09:00 Melatonin [Melatonin] GTUBE DAILY ROBERT Non-Formulary Medication 10 mg 04/10/17 09:00 Omeprazole Suspension GTUBE BID ROBERT Non-Formulary Medication 30 ml 04/09/17 22:20 Diphenhydramine [Benadryl] GTUBE BEDTIME PRN Sleep Non-Formulary Medication 10 mg 04/10/17 09:00 Prednisone [Prednisone 5 Mg/5 Ml] PO DAILY ROBERT Phytonadione 100 mcg 04/09/17 22:20 Vitamin K .XX DAILY PRN Bleeding Simvastatin 20 mg 04/10/17 21:00 Zocor GTUBE BEDTIME ROBERT Valproic Acid 125 mg 04/10/17 21:00 Depakene Syrup GTUBE BEDTIME ROBERT Warfarin Sodium 3.5 mg 04/10/17 09:00 Coumadin PO DAILY ROBERT Discontinued Medications Generic Name Dose Route Start Last Admin Trade Name Freq PRN Reason Stop Dose Admin Albuterol/Ipratropium 3 ml 04/09/17 19:08 04/09/17 19:23 Duoneb 3.0-0.5 Mg/3 Ml NEB 04/09/17 19:09 3 ml ONETIME ONE Administration Furosemide 40 mg 04/09/17 21:05 Lasix IVPUSH 04/09/17 21:06 NOW ONE Furosemide 20 mg 04/09/17 21:06 04/09/17 21:25 Lasix IVPUSH 04/09/17 21:07 20 mg ONETIME ONE Administration Methylprednisolone Sodium Succinate 125 mg 04/09/17 19:08 04/09/17 19:30 Solu-Medrol IVPUSH 04/09/17 19:09 125 mg ONETIME ONE Administration Departure - Departure Time of Disposition: 22:09 Disposition: Admitted As Inpatient 67 Condition: Fair Clinical Impression: Atelectasis of both lungs, Pulmonary fibrosis, Hypoxemia CAD (coronary artery disease) Qualifiers: [place] vs. transplanted heart: [email or web address] heart Associated angina: without angina - Discharge Information - My Orders Last 24 Hours: My Active Orders 04/09/17 19:08 RT Aerosol Therapy [RC] ASDIRECTED Lumbar Spine 2 or 3V [CR] Stat 04/09/17 19:14 Chest 1V Frontal [CR] Stat 04/09/17 21:04 EKG Documentation Completion [RC] ASDIRECTED EKG 12 Lead [EK] Routine - Assessment/Plan Last 24 Hours: My Active Orders 04/09/17 19:08 RT Aerosol Therapy [RC] ASDIRECTED Lumbar Spine 2 or 3V [CR] Stat 04/09/17 19:14 Chest 1V Frontal [CR] Stat 04/09/17 21:04 EKG Documentation Completion [RC] ASDIRECTED EKG 12 Lead [EK] Routine
[2017-04-09] MEDS ORDERED: Loperamide 1 MG/5 ML ML Solution 120 ML Bottle GTUBE PRN (22:20)
[2017-04-09] MEDS ORDERED: DIPHENHYDRAMINE GTUBE PRN (22:20)
[2017-04-09] MEDS ORDERED: Acetaminophen Soln 650 MG/20.3 ML UD Cup GTUBE PRN (22:20)
[2017-04-09] MEDS ORDERED: Phytonadione 100 MCG Tab PRN (22:20)
[2017-04-09] MEDS ORDERED: Furosemide Soln 10 MG/ML 60 ML Bottle GTUBE SCH (22:30)
[2017-04-10] MEDS ORDERED: Simvastatin 20 MG Tab GTUBE SCH
[2017-04-10] MEDS ORDERED: Simvastatin 20 MG Tab ONE (00:19)
[2017-04-10] MEDS: Valproic Acid 250 MG/5 ML Syrup ML (473 ML Bottle) GTUBE SCH ×2 (00:34→21:10)
[2017-04-10] MEDS ORDERED: PREDNISONE 10 MG PO SCH (09:00)
[2017-04-10] MEDS ORDERED: MELATONIN GTUBE SCH (09:00)
[2017-04-10] MEDS ORDERED: OMEPRAZOLE 10 MG GTUBE SCH (09:00)
[2017-04-10] MEDS ORDERED: Warfarin 2 MG Tab PO SCH (09:00)
[2017-04-10] MEDS ORDERED: prednisoLONE Syrup 5 MG/5 ML ML 120 ML Bottle PO SCH (09:00)
[2017-04-10] MEDS ORDERED: Furosemide Soln 10 MG/ML 60 ML Bottle GTUBE SCH ×2 (09:00→10:31)
--- NOTE | 2017-04-10 10:20 | HP ---
ADMISSION DATE: 04/09/2017 HISTORY OF PRESENT ILLNESS: Mr. Ibarra is an 86-year-old man from [place], [place], with a history of chronic atrial fibrillation with pacemaker; pulmonary fibrosis, on home oxygen; and progressive dysphagia that has required gastrostomy tube placement. According to the patient, he began to have shortness of breath yesterday with an increasing difficulty, tachypnea, and he states he was hyperventilating. He states this is new with no prior episodes. He has not had a fever, chills, cough, or upper respiratory symptoms. He has not had chest pain or palpitations. For this reason, he was brought to the emergency room. He was evaluated by Dr. Wood and admitted to the critical care unit. The patient states his breathing is better now. He diuresed three times after receiving IV Lasix in the emergency room. His main concern is getting follow up for his gastrostomy tube hoping it can be pulled out. He has an appointment at the [facility] in April to evaluate this. PAST MEDICAL HISTORY: G-tube placement in approximately October of this year. He has been using two cans of nutritional supplement through the G-tube four times a day, but states that he continues to lose weight, approximately 30 pounds since the G-tube was placed. He apparently is able to swallow enough, but he does not choke on secretions but he takes his medications through the G- tube. The patient was also admitted in November of this year with pneumonia and transferred to [facility] in [place]. Additional past history includes chronic atrial fibrillation. 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 He was treated with steroid and additional medication for this, taken off the amiodarone and lungs seemed to have improved. He has a history of chronic depression, chronic hyponatremia, chronic anemia. Surgical procedures, he underwent cricothyroid myotomy in August of 2016 for the swallowing difficulty. Prior to that, he had balloon esophageal dilation and cricopharyngeal Botox injection without lasting benefit. Dr. Wolf is Ear, Nose, and throat physician, has subsequently said that there is not much more he can do and thus Brad has made the appointment at the [facility] for a followup. He has hyperlipidemia and chronic essential hypertension. He had a cardiac arrest in October of 2016 while hospitalized with pneumonia and the pacemaker ICD was placed at that time. He has diverticulosis, osteoarthritis, remote history of seizure, and a history of pernicious anemia. MEDICATIONS: Prednisone 10 mg daily, Benadryl 75 mg at bedtime, warfarin 3.5 mg daily, valproic acid 125 mg at bedtime, simvastatin 20 mg at bedtime, vitamin K 100 mcg daily, omeprazole 10 mg b.i.d., melatonin 12 mg daily, loperamide 10 mL daily, furosemide 20 mg daily, acetaminophen 500 mg every 4 hours p.r.n. ALLERGIES: Amiodarone, lorazepam, sulfa, sulfonamides. HABITS: Nonsmoker and nondrinker. FAMILY AND SOCIAL HISTORY: The patient is and lives [facility] in [place] with his . He is retired and lists daughter Melony in [place] as next of kin. REVIEW OF SYSTEMS: GENERAL: No recent seizures or syncope. He has a 30-pound weight loss as mentioned. SKIN: No rash. HEENT: No recent changes in the hearing or vision. No sore throat or URI. No cough or purulent sputum. No chest pain or palpitations. He does have chronic dyspnea and remains on oxygen at home. GI: He does have loose stools likely related to the 8 cans of nutritional supplement per day. No hematochezia or melena. : No hematuria or UTI symptoms. EXTREMITIES: No joint inflammation or swelling. PSYCHIATRY: He does have chronic depression. PHYSICAL EXAMINATION: GENERAL: He is alert, comfortable, and a good historian for details of his history. Speech is slightly dysarthric. VITAL SIGNS: Blood pressure 131/68, pulse 112 and irregular, respirations 23, temp 97.6, O2 saturation 92% on 4 L nasal cannula, weight 146 pounds 9 ounces on admission. SKIN: Anicteric. Warm, dry. No rash is noted. HEENT: Show pupils to be equal and reactive. Oropharynx is clear. NECK: Supple. Thyroid is normal. LUNGS: Clear in the upper lung rehman. He has somewhat distant breath sounds and rales at both bases. HEART: Slightly irregular with a 2/6 systolic murmur heard over the precordium. ABDOMEN: Normal bowel sounds. Soft and nontender. He has an enterostomy tube in place for feedings. EXTREMITIES: Warm and well perfused. Good pulses in the feet. No edema. NEUROLOGIC: He is alert and oriented. He gives a good history for details. Station and gait are not tested. Motor exam appears symmetric. LABORATORY STUDIES: Chest x-ray shows cardiomegaly and bilateral heavy markings consistent with fibrosis and pulmonary edema. White count 9100, hemoglobin 9.6, platelets 154, MCV 98.6. Sodium 128, potassium 4.3, BUN 33, creatinine 0.7, troponin 0.01. BNP 248. ASSESSMENT: An 86-year-old man with: 1. Relatively sudden onset of respiratory difficulty consistent with acute pulmonary edema superimposed on chronic pulmonary fibrosis and congestive heart failure. 2. Heavy markings in the lungs consistent with pulmonary fibrosis. No clinical or laboratory suggestion of infectious pneumonia. 3. Atrial fibrillation with history of cardioversion, amiodarone, cardiac arrest, and now other pacer or defibrillator in place. 4. Chronic essential hypertension. 5. Weight loss. 6. Dysphagia with severe swallowing difficulty requiring G-tube feedings, cause unclear. 7. Chronic depression. 8. Remote history of seizure disorder. PLAN: He has been diuresed and is already feeling better. We will adjust his G- tube Lasix dose upwards, increase activity monitor, and anticipate a hospitalization with discharge within 48 hours. /[id number] CULLEN/CHERISE
[2017-04-10] MEDS ORDERED: Loperamide 2 MG Tab GTUBE PRN (10:28)
[2017-04-10] MEDS ORDERED: prednisoLONE Syrup 5 MG/5 ML ML 120 ML Bottle GTUBE SCH (10:47)
[2017-04-10] MEDS ORDERED: SODIUM BICARBONATE GTUBE ONE ×2 (11:00)
[2017-04-10] MEDS ORDERED: OMEPRAZOLE 20 MG PO SCH ×2 (11:00)
[2017-04-10] MEDS ORDERED: SODIUM BICARBONATE PO SCH ×2 (11:00)
[2017-04-10] MEDS ORDERED: OMEPRAZOLE 20 MG GTUBE ONE ×2 (11:00)
[2017-04-10] MEDS: Phytonadione 100 MCG Tab SCH (11:17)
[2017-04-10] MEDS: Furosemide Soln 10 MG/ML 60 ML Bottle GTUBE SCH ×2 (11:51→21:10)
--- NOTE | 2017-04-10 14:06 | CR ---
INDICATION: Trauma. LUMBAR SPINE, 4 VIEWS: There is a pigtail catheter across the upper abdomen with the pigtail just left of the spine, at approximately T12-L1 level. Degenerative changes throughout the spine. There is gas seen throughout the colon with stool present as well. There is a question of some small calcifications lateral to the spine on the left, just below the 11th rib, which could represent small calcifications within the kidney, although difficult to tell with certainty. There is a calcification lateral to the T12 vertebral body on the right, which could represent upper pole renal calculus, gallbladder calculus, or the like. There is extensive vascular calcification. Again, over the spine, there are fairly significant degenerative changes. Joint space narrowing throughout the lumbar spine with probably several levels of vacuum disk phenomena, L3-4, L4-5 level. There may be some compression deformity of the L1 vertebral body, age indeterminate. Close clinical correlation would be helpful. If indicated, CT examination may be helpful. IMPRESSION: 1. There may be compression deformity of a mild degree at the L1 vertebral body. CT may be helpful for further evaluation, if clinically indicated. 2. Vertebral and apophyseal spondylosis. 3. Calcifications over the upper abdomen on either side. Genitourinary, gallbladder, or the like? MTDD
--- NOTE | 2017-04-10 14:38 | CR ---
INDICATION: Dyspnea. CHEST, PA AND LATERAL: Comparison made to previous examination of 04/09/2017. Better inspiration than on yesterdays examination. Transvenous pacemaker in place. There does appear to be cardiomegaly. Suggest that there is some degree of mild pulmonary vascularity prominence, although asymmetric interstitial changes over the lungs, more so over the left lung than on the right. This may represent a diffuse infiltrative process on the left with some mild underlying failure. There is elevation of the right hemidiaphragm. IMPRESSION: 1. I feel that there is mild failure. 2. However, asymmetry over the left lung when compared to the right which does suggest diffuse interstitial pneumonic infiltrate in the left lung. Follow-up examination recommended after appropriate medical therapy. MTDD
[2017-04-10] MEDS ORDERED: WARFARIN PO SCH ×2 (16:00)
[2017-04-10] MEDS ORDERED: Warfarin 3 MG Tab GTUBE SCH (16:00)
[2017-04-10] MEDS: SODIUM BICARBONATE GTUBE SCH ×2 (17:45)
[2017-04-10] MEDS: OMEPRAZOLE 20 MG GTUBE SCH ×2 (17:45)
[2017-04-10] MEDS ORDERED: diphenhydrAMINE 12.5 MG/5 ML Liquid ML (473 ML Bottle) GTUBE SCH (21:00)
[2017-04-11] MEDS: OMEPRAZOLE 20 MG GTUBE SCH ×2 (07:40)
[2017-04-11] MEDS: SODIUM BICARBONATE GTUBE SCH ×2 (07:40)
[2017-04-11] MEDS: Phytonadione 100 MCG Tab SCH (08:54)
[2017-04-11] MEDS: Furosemide Soln 10 MG/ML 60 ML Bottle GTUBE SCH (08:54)
[2017-04-11 09:33] VITALS: BP 129/74
[2017-04-11 18:31] LABS: UNSATURATED IRON BIND CAPACITY 152 ug/dL (112-347)
--- NOTE | 2017-04-12 02:40 | DISCH ---
DISCHARGE DATE: 04/11/2017 PRIMARY FINAL DIAGNOSIS: Acute pulmonary edema secondary to congestive heart failure and atrial fibrillation. OTHER DIAGNOSES: Chronic pulmonary fibrosis with chronic obstructive pulmonary disease, severe esophageal motility disorder preventing swallowing and requiring feeding tube, depression, anemia of chronic disease, hyponatremia, and atrial fibrillation. OPERATIONS: None. COMPLICATIONS: None. SUMMARY: Mr. Ibarra is an 86-year-old man with severe respiratory problems secondary to pulmonary fibrosis felt to be due to amiodarone, history of atrial fibrillation, and severe esophageal motility disorder, status post multiple procedures and now on feeding tube nutrition. The patient was admitted through the emergency room because of acute sudden onset of dyspnea, gasping, and what he described as hyperventilation. He was found to be in acute pulmonary edema. He was given IV furosemide, diuresed, and within a few hours, he was already feeling better. His daily furosemide was increased to 20 mg per G-tube b.i.d. He continued to improve. He developed no clinical or laboratory evidence of acute infectious lung problems and no antibiotics were given. By 04/11/2017, he was up walking, feeling improved, and breathing easier. He was back down to 2 L of nasal cannula oxygen, his regular dose. He is discharged to home with his in improved condition. MEDICATIONS ON DISCHARGE: 1. Prednisone 10 mg G-tube daily. 2. Diphenhydramine 50 mg G-tube q.h.s. 3. Bupropion 150 mg a.m. and 75 mg p.m. per G-tube daily. 4. Warfarin 3 mg G-tube daily. 5. Vitamin K 100 mcg G-tube daily. 6. Omeprazole 20 mg b.i.d. G-tube daily. 7. Melatonin 10 mg G-tube q.h.s. 8. Furosemide 20 mg G-tube daily. 9. Albuterol p.r.n. 10.Tylenol p.r.n. 11.Valproic acid 125 mg q.h.s. 12.Loperamide 10 mL G-tube p.r.n. loose stools. DISCHARGE INSTRUCTIONS: He is asked to have followup in approximately [address] Saha. He has an upcoming appointment in the [facility] for a second opinion regarding his esophageal motility disorder and he is to call should there be questions or problems prior to that time. /[id number] MARICRUZ
== END 2017-04-11 13:40 | disposition home health service (06) | DRG 292 ==
LOC: FB.ED 18:49 → FB.ICU 21:36 → FB.MS 04-11 08:01
PROVIDERS: ADMIT Emergency Medicine; ATTEND Family Medicine
DX: J98.11 Atelectasis (principal); I50.9 Heart failure, unspecified; R09.02 Hypoxemia; E78.00 Pure hypercholesterolemia, unspecified; E87.1 Hypo-osmolality and hyponatremia; I48.91 Unspecified atrial fibrillation; I25.10 Atherosclerotic heart disease of native coronary artery without angina pectoris; J84.10 Pulmonary fibrosis, unspecified; J44.9 Chronic obstructive pulmonary disease, unspecified; R13.10 Dysphagia, unspecified; Z79.899 Other long term (current) drug therapy; K22.8 Other specified diseases of esophagus; Z79.01 Long term (current) use of anticoagulants; D63.8 Anemia in other chronic diseases classified elsewhere; E78.5 Hyperlipidemia, unspecified; G40.909 Epilepsy, unspecified, not intractable, without status epilepticus; I10 Essential (primary) hypertension; R63.4 Abnormal weight loss; F32.9 Major depressive disorder, single episode, unspecified; Z95.810 Presence of automatic (implantable) cardiac defibrillator; Z99.81 Dependence on supplemental oxygen; Z93.1 Gastrostomy status; Z88.8 Allergy status to other drugs, medicaments and biological substances
CPT/HCPCS: 36415; 71010; 72100; 80048; 83605; 83880; 84484; 85025; 93005; 96374; 96375; 99285; J1940; J2930; J7620; 36600; 71020; 82607; 82728; 82803; 83540; 83550; 84443; 85379; 85610; 85651; 94640; A9270-GY; J3490

== ENCOUNTER 2017-04-16 06:30 | Inpatient (IN) | payer MEDICARE, BC ==
[2017-04-16] MEDS ORDERED: Albuterol/Ipratropium 3.0-0.5 MG/3 ML Neb Soln NEB ONE (06:48)
[2017-04-16] MEDS ORDERED: methylPREDNISolone Sodium Succinate 125 MG/2 ML SDV IVPUSH ONE (06:48)
[2017-04-16] MEDS ORDERED: Morphine 2 MG/ML Syringe IVPUSH ONE (06:51)
--- NOTE | 2017-04-16 07:03 | EDM.PDOC ---
ED HPI GENERAL MEDICAL PROBLEM - General Stated Complaint: TROUBLE BREATHING Time Seen by Provider: 04/16/17 06:30 Source of Information: Reports: Patient, Family History Limitations: Reports: Respiratory Distress - History of Present Illness INITIAL COMMENTS - FREE TEXT/NARRATIVE: 86 y.o.w.m with history of copd, dysfunctioning epiglotis, S/P cardiac arrest in 11/2016, come to the ed with his family due to sob and C/P. Pt was breathing 44 times per min, his pulse ox was 96 on 2 liters. He is at home on 2 l 02 buy NC and takes 10mg of prednison a day. Pt is a poor historian. Onset: Gradual, Unknown/Unsure Onset Date: 04/16/17 Onset Time: 02:00 Duration: Hour(s):, Getting Worse Location: Reports: Chest Severity: Moderate Improves with: Reports: Medication Context: Reports: Other (copd) Associated Symptoms: Reports: Chest Pain, Shortness of Breath - Related Data Allergies Allergy/AdvReac Type Severity Reaction Status Date / Time amiodarone AdvReac Severe Cardiac Verified 04/16/17 07:06 Arrest lorazepam [From Ativan] AdvReac Weakness Verified 04/16/17 07:06 Sulfa (Sulfonamide AdvReac Hives Verified 04/16/17 07:06 Antibiotics) Home Meds: Home Meds Phytonadione [Vitamin K] 100 mcg GTUBE DAILY 12/05/16 [History] Valproic Acid [Depakene Syrup] 125 mg GTUBE BEDTIME #75 ml 12/22/16 [Rx] Loperamide [Imodium] 10 ml GTUBE DAILY PRN 12/31/16 [History] Warfarin [Coumadin] 3 mg GTUBE DAILY 12/31/16 [History] Omeprazole Suspension 20 mg GTUBE BID 04/09/17 [History] predniSONE [predniSONE 5 MG/5 ML] 10 mg GTUBE DAILY 04/09/17 [History] Melatonin 10 mg GTUBE BEDTIME 04/10/17 [History] buPROPion [Wellbutrin] 75 mg GTUBE DAILY@1500 04/10/17 [History] buPROPion [Wellbutrin] 150 mg GTUBE DAILY 04/10/17 [History] diphenhydrAMINE HCl [Diphenhydramine HCl] 50 mg GTUBE BEDTIME 04/10/17 [History] Acetaminophen [Tylenol] 500 mg GTUBE Q4H PRN #0 cup 04/11/17 [Rx] Albuterol [IJD: Albuterol] 2.5 mg NEB Q2H PRN #0 nebule 04/11/17 [Rx] Furosemide [Lasix Oral Soln] 20 mg GTUBE BID ml 04/11/17 [Rx] Past Medical History HEENT History: Reports: Hard of Hearing, Other (See Below) Other HEENT History: wears glasses Cardiovascular History: Reports: High Cholesterol, Hypertension, Pacemaker, Other (See Below) Other Cardiovascular History: New Atrial Fibrillation, dx Fall 2015, placed on Coumadin. Cardioversion 10/24/2016, cardiac arrest 11/07/2016, pacer/ICD placement 10/2016 Respiratory History: Reports: Other (See Below) Other Respiratory History: Bilateral pneumonia dx 11/10/16 Gastrointestinal History: Reports: Gastritis, GERD, Other (See Below) Other Gastrointestinal History: GASTRODUODENITIS; ACHALASIA OF THE CRICOPHARYNGEUS MUSCLE; DIVERTICULITIS Musculoskeletal History: Reports: Other (See Below) Other Musculoskeletal History: WRIST ARTHRITIS Neurological History: Reports: Seizure, Other (See Below) Other Neuro History: Experienced seizures several years ago, has been on Depakote. Psychiatric History: Reports: Depression Hematologic History: Reports: Other (See Below) Other Hematologic History: PERNICIOUS ANEMIA - Infectious Disease History Infectious Disease History: Reports: Chicken Pox, Measles, Mumps - Past Surgical History HEENT Surgical History: Reports: Laser Surgery, Other (See Below) GI Surgical History: Reports: Other (See Below) Social & Family History - Family History Family Medical History: Noncontributory Respiratory: Reports: Other (See Below) Other Respiratory Family Hisory: fibrosis of lungs with esogeal involvement Neurological: Reports: Seizure Psychiatric: Reports: Anxiety, Depression - Tobacco Use Smoking Status *Q: Never Smoker Years of Tobacco use: 10 Packs/Tins Daily: 1 Used Tobacco, but Quit: Yes Month Tobacco Last Used: unknown Second Hand Smoke Exposure: No - Caffeine Use Caffeine Use: Reports: None - Alcohol Use Days Per Week of Alcohol Use: 7 Number of Drinks Per Day: 1 Total Drinks Per Week: 7 - Recreational Drug Use Recreational Drug Use: No ED ROS GENERAL - Review of Systems Review Of Systems: See Below Constitutional: Reports: No Symptoms HEENT: Reports: No Symptoms Respiratory: Reports: Shortness of Breath Cardiovascular: Reports: Chest Pain Endocrine: Reports: No Symptoms GI/Abdominal: Reports: No Symptoms : Reports: No Symptoms Musculoskeletal: Reports: No Symptoms Skin: Reports: No Symptoms Neurological: Reports: No Symptoms Psychiatric: Reports: No Symptoms Hematologic/Lymphatic: Reports: No Symptoms Immunologic: Reports: No Symptoms ED EXAM, GENERAL - Physical Exam Exam: See Below Exam Limited By: Respiratory Distress General Appearance: Alert, WD/WN, Moderate Distress, Thin Eye Exam: Bilateral Eye: Normal Inspection Ears: Normal External Exam Ear Exam: Bilateral Ear: Auricle Normal Nose: Normal Inspection, Normal Mucosa, No Blood Throat/Mouth: Normal Inspection, Normal Lips Head: Atraumatic, Normocephalic Neck: Normal Inspection, Supple, Non-Tender, Full Range of Motion Respiratory/Chest: Lungs Clear, Respiratory Distress, Accessory Muscle Use Cardiovascular: Normal Peripheral Pulses, Irregularly Irregular Peripheral Pulses: 2+: Femoral (L), Femoral (R) GI/Abdominal: Normal Bowel Sounds, Soft, Non-Tender, No Organomegaly (Male) Exam: Deferred Rectal (Males) Exam: Deferred Back Exam: Normal Inspection, Full Range of Motion Extremities: Normal Inspection, Normal Range of Motion, Non-Tender, No Pedal Edema Neurological: Alert, Oriented, CN II-XII Intact, Normal Cognition Psychiatric: Normal Affect, Normal Mood Skin Exam: Warm, Dry, Intact, Pallor Lymphatic: No Adenopathy EKG INTERPRETATION EKG Date: 04/16/17 Time: 06:50 Rhythm: A-Fib Rate (Beats/Min): 100 [place]: Normal P-Wave: Absent QRS: Normal ST-T: Normal QT: Normal Comparison: NA - No Prior EKG Course - Vital Signs Text/Narrative:: 86 y.o.w.m with history of copd, dysfunctional epiglottis, S/P cardiac arrest in 11/2016, come to the ed with his family due to sob and C/P. Pt was breathing 44 times per min, his pulse ox was 96 on 2 liters. He is at home on 2 l 02 buy NC and takes 10mg of prednison a day. Pt is a poor historian. no F/C, no N/V PE: Thin 86y.o.w.m in resp distress, 44 breath sounds per min, a fib, distant lung sounds CXR: COPD Labs: WBC 12.8 BUN/CR ratio elevated to 72, Na 133 K 3.8 ABGL pH 7.42 pCO2 55 Trop. 0.03 EKG: A fib with NVR Imaging: CXR no change from the last admission. Impression: COPD exacerbation, Dysfunctional epiglottis, Anemia, dehydration. C/ P Tx: Solumedrol, duoneb, Morphine, O2 by NC Reexam: Improved Plan: Admitto med surge tele. Last Recorded V/S: Last Vital Signs Temp 36.0 C 04/16/17 06:40 Pulse 115 H 04/16/17 06:40 Resp 43 H 04/16/17 06:40 BP 144/87 H 04/16/17 06:40 Pulse Ox 97 04/16/17 06:40 - Orders/Labs/Meds Orders: Active Orders 24 hr Category Date Time Status Patient Status [ADT] Routine ADT 04/16/17 07:56 Active EKG Documentation Completion [RC] ASDIRECTED Care 04/16/17 06:54 Active Oxygen Therapy [RC] PRN Care 04/16/17 07:56 Active RT Aerosol Therapy [RC] ASDIRECTED Care 04/16/17 06:49 Active Up With Assistance [RC] ASDIRECTED Care 04/16/17 07:56 Active VTE/DVT Education [RC] Per Unit Routine Care 04/16/17 07:56 Active Vital Signs [RC] Q4H Care 04/16/17 07:56 Active Nothing per Oral Now Diet [DIET] Diet 04/16/17 Breakfast Ordered CXR [Chest 1V Frontal] [CR] Stat Exams 04/16/17 06:48 Taken Ondansetron [Zofran] Med 04/16/17 07:56 Active 4 mg IV Q4H PRN Sodium Chloride 0.9% [Saline Flush] Med 04/16/17 07:56 Active 10 ml FLUSH ASDIRECTED PRN Peripheral IV Insertion Adult [OM.PC] Routine Oth 04/16/17 07:56 Ordered Resuscitation Status Routine Resus Stat 04/16/17 07:56 Ordered EKG 12 Lead [EK] Routine Ther 04/16/17 06:54 Ordered Medication Orders Ondansetron HCl (Zofran) 4 mg IV Q4H PRN PRN Reason: Nausea/Vomiting Sodium Chloride (Saline Flush) 10 ml FLUSH ASDIRECTED PRN PRN Reason: Keep Vein Open Labs: Laboratory Tests 04/16/17 04/16/17 04/16/17 Range/Units 06:40 06:40 06:40 WBC 12.4 H (4.5-12.0) X10-3/uL RBC 3.22 L (4.30-5.75) x10(6)uL Hgb 10.8 L (11.5-15.5) g/dL Hct 31.4 (30.0-51.3) % MCV 97.6 H (80-96) fL MCH 33.6 (27.7-33.6) pg MCHC 34.4 (32.2-35.4) g/dL RDW 13.9 (11.5-15.5) % Plt Count 210 (125-369) X10(3)uL MPV 8.8 (7.4-10.4) fL Neut % (Auto) 80.3 (46-82) % Lymph % (Auto) 10.5 L (13-37) % Pacific % (Auto) 6.6 (4-12) % Eos % (Auto) 2 (1.0-5.0) % Baso % (Auto) 0 (0-2) % Neut # (Auto) 10.0 H (1.6-8.3) # Lymph # (Auto) 1.3 (0.6-5.0) # Pacific # (Auto) 0.8 (0.0-1.3) # Eos # (Auto) 0.3 (0.0-0.8) # Baso # (Auto) 0.0 (0.0-0.2) # ABG pH (7.35-7.45) ABG pCO2 (35-45) mmHg ABG pO2 (83-108) mmHg ABG HCO3 (22-26) mmol/L ABG O2 Saturation (96-97) % ABG Base Excess (-2-2) Ryley Test O2 Delivery Device Sodium 133 L (135-145) mmol/L Potassium 3.8 (3.5-5.3) mmol/L Chloride 91 L (100-110) mmol/L Carbon Dioxide 35 H (23-29) mmol/L BUN 36 H (8-23) mg/dL Creatinine 0.5 L (0.6-1.3) mg/dL Est Cr Clr Drug Dosing TNP Estimated GFR (MDRD) > 60 (>60) BUN/Creatinine Ratio 72.0 H (9-20) Glucose 109 (80-116) mg/dL Lactic Acid (0.5-2.2) mmol/L Calcium 9.2 (8.6-10.2) mg/dL Creatine Kinase (60-160) IU/L Troponin I (0.02-0.06) NG/ML B-Natriuretic Peptide 162 H (0-100) pg/mL 04/16/17 04/16/17 04/16/17 Range/Units 06:40 06:40 07:15 WBC (4.5-12.0) X10-3/uL RBC (4.30-5.75) x10(6)uL Hgb (11.5-15.5) g/dL Hct (30.0-51.3) % MCV (80-96) fL MCH (27.7-33.6) pg MCHC (32.2-35.4) g/dL RDW (11.5-15.5) % Plt Count (125-369) X10(3)uL MPV (7.4-10.4) fL Neut % (Auto) (46-82) % Lymph % (Auto) (13-37) % [place] % (Auto) (4-12) % Eos % (Auto) (1.0-5.0) % Baso % (Auto) (0-2) % Neut # (Auto) (1.6-8.3) # Lymph # (Auto) (0.6-5.0) # [place] # (Auto) (0.0-1.3) # Eos # (Auto) (0.0-0.8) # Baso # (Auto) (0.0-0.2) # ABG pH (7.35-7.45) ABG pCO2 (35-45) mmHg ABG pO2 (83-108) mmHg ABG HCO3 (22-26) mmol/L ABG O2 Saturation (96-97) % ABG Base Excess (-2-2) Ryley Test O2 Delivery Device Sodium (135-145) mmol/L Potassium (3.5-5.3) mmol/L Chloride (100-110) mmol/L Carbon Dioxide (23-29) mmol/L BUN (8-23) mg/dL Creatinine (0.6-1.3) mg/dL Est Cr Clr Drug Dosing Estimated GFR (MDRD) (>60) BUN/Creatinine Ratio (9-20) Glucose (80-116) mg/dL Lactic Acid 0.7 (0.5-2.2) mmol/L Calcium (8.6-10.2) mg/dL Creatine Kinase 20 L (60-160) IU/L Troponin I 0.03 (0.02-0.06) NG/ML B-Natriuretic Peptide (0-100) pg/mL 04/16/17 Range/Units 07:20 WBC (4.5-12.0) X10-3/uL RBC (4.30-5.75) x10(6)uL Hgb (11.5-15.5) g/dL Hct (30.0-51.3) % MCV (80-96) fL MCH (27.7-33.6) pg MCHC (32.2-35.4) g/dL RDW (11.5-15.5) % Plt Count (125-369) X10(3)uL MPV (7.4-10.4) fL Neut % (Auto) (46-82) % Lymph % (Auto) (13-37) % [place] % (Auto) (4-12) % Eos % (Auto) (1.0-5.0) % Baso % (Auto) (0-2) % Neut # (Auto) (1.6-8.3) # Lymph # (Auto) (0.6-5.0) # [place] # (Auto) (0.0-1.3) # Eos # (Auto) (0.0-0.8) # Baso # (Auto) (0.0-0.2) # ABG pH 7.43 (7.35-7.45) ABG pCO2 53 H (35-45) mmHg ABG pO2 83 (83-108) mmHg ABG HCO3 35 H (22-26) mmol/L ABG O2 Saturation 96 (96-97) % ABG Base Excess 9.5 H (-2-2) Ryley Test Passed O2 Delivery Device Nasal cannula Sodium (135-145) mmol/L Potassium (3.5-5.3) mmol/L Chloride (100-110) mmol/L Carbon Dioxide (23-29) mmol/L BUN (8-23) mg/dL Creatinine (0.6-1.3) mg/dL Est Cr Clr Drug Dosing Estimated GFR (MDRD) (>60) BUN/Creatinine Ratio (9-20) Glucose (80-116) mg/dL Lactic Acid (0.5-2.2) mmol/L Calcium (8.6-10.2) mg/dL Creatine Kinase (60-160) IU/L Troponin I (0.02-0.06) NG/ML B-Natriuretic Peptide (0-100) pg/mL Meds: Medications Generic Name Dose Route Start Last Admin Trade Name Freq PRN Reason Stop Dose Admin Ondansetron HCl 4 mg 04/16/17 07:56 Zofran IV Q4H PRN Nausea/Vomiting Sodium Chloride 10 ml 04/16/17 07:56 Saline Flush FLUSH ASDIRECTED PRN Keep Vein Open Discontinued Medications Generic Name Dose Route Start Last Admin Trade Name Freq PRN Reason Stop Dose Admin Albuterol/Ipratropium 3 ml 04/16/17 06:48 04/16/17 07:30 Duoneb 3.0-0.5 Mg/3 Ml NEB 04/16/17 06:49 3 ml ONETIME ONE Administration Methylprednisolone Sodium Succinate 125 mg 04/16/17 06:48 04/16/17 07:04 Solu-Medrol IVPUSH 04/16/17 06:49 125 mg ONETIME ONE Administration Morphine Sulfate 2 mg 04/16/17 06:51 04/16/17 07:00 Morphine IVPUSH 04/16/17 06:52 2 mg ONETIME ONE Administration Departure - Departure Time of Disposition: 08:10 Disposition: Admitted As Inpatient 67 Condition: Fair Clinical Impression: COPD (chronic obstructive pulmonary disease) Qualifiers: COPD type: emphysema Emphysema type: unspecified Qualified Code(s): J43.9 - Emphysema, unspecified - Discharge Information Referrals: Darci Saha MD [Primary Care Provider] - - My Orders Last 24 Hours: My Active Orders 04/16/17 06:48 CXR [Chest 1V Frontal] [CR] Stat 04/16/17 06:49 RT Aerosol Therapy [RC] ASDIRECTED 04/16/17 06:54 EKG Documentation Completion [RC] ASDIRECTED EKG 12 Lead [EK] Routine 04/16/17 07:56 Patient Status [ADT] Routine Oxygen Therapy [RC] PRN Up With Assistance [RC] ASDIRECTED VTE/DVT Education [RC] Per Unit Routine Vital Signs [RC] Q4H Ondansetron [Zofran] 4 mg IV Q4H PRN Sodium Chloride 0.9% [Saline Flush] 10 ml FLUSH ASDIRECTED PRN Peripheral IV Insertion Adult [OM.PC] Routine Resuscitation Status Routine 04/16/17 Breakfast Nothing per Oral Now Diet [DIET] - Assessment/Plan Last 24 Hours: My Active Orders 04/16/17 06:48 CXR [Chest 1V Frontal] [CR] Stat 04/16/17 06:49 RT Aerosol Therapy [RC] ASDIRECTED 04/16/17 06:54 EKG Documentation Completion [RC] ASDIRECTED EKG 12 Lead [EK] Routine 04/16/17 07:56 Patient Status [ADT] Routine Oxygen Therapy [RC] PRN Up With Assistance [RC] ASDIRECTED VTE/DVT Education [RC] Per Unit Routine Vital Signs [RC] Q4H Ondansetron [Zofran] 4 mg IV Q4H PRN Sodium Chloride 0.9% [Saline Flush] 10 ml FLUSH ASDIRECTED PRN Peripheral IV Insertion Adult [OM.PC] Routine Resuscitation Status Routine 04/16/17 Breakfast Nothing per Oral Now Diet [DIET]
[2017-04-16] MEDS ORDERED: Sodium Chloride 0.9% 10 ML Syringe FLUSH PRN (07:56)
[2017-04-16] MEDS ORDERED: Ondansetron 4 MG/2 ML SDV IV PRN (07:56)
[2017-04-16] MEDS ORDERED: Loperamide 1 MG/5 ML ML Solution 120 ML Bottle GTUBE PRN (09:31)
[2017-04-16] MEDS ORDERED: Acetaminophen Soln 650 MG/20.3 ML UD Cup GTUBE PRN (09:31)
[2017-04-16] MEDS ORDERED: Furosemide 40 MG/4 ML VIAL IVPUSH ONE (09:35)
[2017-04-16] MEDS ORDERED: Morphine 2 MG/ML Syringe IVPUSH PRN (09:35)
--- NOTE | 2017-04-16 09:46 | PCM.HP ---
H&P History of Present Illness - General Date of Service: 04/16/17 Admit Problem/Dx: Admission Diagnosis/Problem Admission Diagnosis/Problem COPD, Moderate chronic obstructive pulmonary disease Source of Information: Patient, Family History Limitations: Reports: No Limitations - History of Present Illness Initial Comments - Free Text/Narative: This is an 86-year-old male patient lives in [place] with his . He's had a steady decline in his health since October. 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 He had defibrillator placed. They state when he was intubated that after that he could not swallow foods we had a PEG tube placed is begin tube feedings. He was in the hospital for COPD recently and sent home. Last 4 days he's been sitting up in a elevated bed, shortness of breath and feels like he is suffocating. He said cough with some brown green sputum for a month. No fevers, chills no chest pain. Sent leg swelling in the past but not recently. Feels better when he is sits upright. - Related Data Allergies/Adverse Reactions: Allergies Allergy/AdvReac Type Severity Reaction Status Date / Time amiodarone AdvReac Severe Cardiac Verified 04/16/17 07:06 Arrest lorazepam [From Ativan] AdvReac Weakness Verified 04/16/17 07:06 Sulfa (Sulfonamide AdvReac Hives Verified 04/16/17 07:06 Antibiotics) Home Medications: Home Meds Phytonadione [Vitamin K] 100 mcg GTUBE DAILY 12/05/16 [History] Valproic Acid [Depakene Syrup] 125 mg GTUBE BEDTIME #75 ml 12/22/16 [Rx] Loperamide [Imodium] 10 ml GTUBE DAILY PRN 12/31/16 [History] Warfarin [Coumadin] 3 mg GTUBE DAILY 12/31/16 [History] Omeprazole Suspension 20 mg GTUBE BID 04/09/17 [History] predniSONE [predniSONE 5 MG/5 ML] 10 mg GTUBE DAILY 04/09/17 [History] Melatonin 10 mg GTUBE BEDTIME 04/10/17 [History] buPROPion [Wellbutrin] 75 mg GTUBE DAILY@1500 04/10/17 [History] buPROPion [Wellbutrin] 150 mg GTUBE DAILY 04/10/17 [History] diphenhydrAMINE HCl [Diphenhydramine HCl] 50 mg GTUBE BEDTIME 04/10/17 [History] Acetaminophen [Tylenol] 500 mg GTUBE Q4H PRN #0 cup 04/11/17 [Rx] Albuterol [IJD: Albuterol] 2.5 mg NEB Q2H PRN #0 nebule 04/11/17 [Rx] Furosemide [Lasix Oral Soln] 20 mg GTUBE BID ml 04/11/17 [Rx] Past Medical History HEENT History: Reports: Hard of Hearing, Other (See Below) Other HEENT History: wears glasses Cardiovascular History: Reports: High Cholesterol, Hypertension, Pacemaker, Other (See Below) Other Cardiovascular History: New Atrial Fibrillation, dx Fall 2015, placed on Coumadin. Cardioversion 10/24/2016, cardiac arrest 11/07/2016, pacer/ICD placement 10/2016 Respiratory History: Reports: Other (See Below) Other Respiratory History: Bilateral pneumonia dx 11/10/16 Gastrointestinal History: Reports: Gastritis, GERD, Other (See Below) Other Gastrointestinal History: GASTRODUODENITIS; ACHALASIA OF THE CRICOPHARYNGEUS MUSCLE; DIVERTICULITIS Musculoskeletal History: Reports: Other (See Below) Other Musculoskeletal History: WRIST ARTHRITIS Neurological History: Reports: Seizure, Other (See Below) Other Neuro History: Experienced seizures several years ago, has been on Depakote. Psychiatric History: Reports: Depression Hematologic History: Reports: Other (See Below) Other Hematologic History: PERNICIOUS ANEMIA - Infectious Disease History Infectious Disease History: Reports: Chicken Pox, Measles, Mumps - Past Surgical History HEENT Surgical History: Reports: Laser Surgery, Other (See Below) GI Surgical History: Reports: Other (See Below) Social & Family History - Family History Family Medical History: Noncontributory Respiratory: Reports: Other (See Below) Other Respiratory Family Hisory: fibrosis of lungs with esogeal involvement Neurological: Reports: Seizure Psychiatric: Reports: Anxiety, Depression - Tobacco Use Smoking Status *Q: Never Smoker Years of Tobacco use: 10 Packs/Tins Daily: 1 Used Tobacco, but Quit: Yes Month Tobacco Last Used: unknown Second Hand Smoke Exposure: No - Caffeine Use Caffeine Use: Reports: None - Alcohol Use Days Per Week of Alcohol Use: 7 Number of Drinks Per Day: 1 Total Drinks Per Week: 7 - Recreational Drug Use Recreational Drug Use: No H&P Review of Systems - Review of Systems: Review Of Systems: See Below General: Reports: Malaise, Weakness, Fatigue. Denies: Fever, Chills, Diaphoresis HEENT: Reports: No Symptoms Pulmonary: Reports: Shortness of Breath, Cough, Sputum. Denies: Wheezing, Pleuritic Chest Pain, Hemoptysis Cardiovascular: Reports: No Symptoms Gastrointestinal: Reports: No Symptoms Genitourinary: Reports: No Symptoms Musculoskeletal: Reports: No Symptoms Skin: Reports: No Symptoms Psychiatric: Reports: Depression Neurological: Reports: No Symptoms Hematologic/Lymphatic: Reports: No Symptoms Immunologic: Reports: No Symptoms Exam - Exam Exam: See Below - Vital Signs Vital Signs: Last Vital Signs Temp 97.3 F 04/16/17 09:13 Pulse 109 H 04/16/17 09:13 Resp 28 H 04/16/17 09:13 BP 134/81 04/16/17 09:13 Pulse Ox 90 L 04/16/17 09:13 Weight: 143 lb - Exam General: Alert, Oriented, Cooperative, Other (Sleepy status post morphine) HEENT: Hearing Intact, Posterior Pharynx Clear, TMs Clear Neck: Supple, Trachea Midline. No: Carotid Bruit, JVD Lungs: Clear to Auscultation, Normal Respiratory Effort. No: Crackles, Rales, Rhonchi Cardiovascular: Regular Rate, Irregular Rhythm, Systolic Murmur GI/Abdominal Exam: Normal Bowel Sounds, Soft, Non-Tender, No Organomegaly, No Distention, No Abnormal Bruit, No Mass Back Exam: Normal Inspection, Full Range of Motion Extremities: Normal Range of Motion, Non-Tender, No Pedal Edema Skin: Warm, Dry, Intact Neurological: Other (Difficulty speaking because of dry mouth.) Neuro Extensive - Mental Status: Alert, Oriented x3, Normal Mood/Affect, Normal Cognition Neuro Extensive - Motor, Sensory, Reflexes: No: Normal Gait - Patient Data Result Diagrams: 04/16/17 06:40 04/16/17 06:40 *Q Meaningful Use (ADM) - VTE *Q VTE Criteria *Q: - Stroke *Q Stroke Criteria *Q: - AMI *Q AMI Criteria *Q: - Problem List (1) Acute bronchitis SNOMED Code(s): 33176429 ICD Code: J20.9 - ACUTE BRONCHITIS, UNSPECIFIED Status: Acute Current Visit: Yes (2) COPD (chronic obstructive pulmonary disease) SNOMED Code(s): 04536313 ICD Code: J44.9 - CHRONIC OBSTRUCTIVE PULMONARY DISEASE, UNSPECIFIED Status : Acute Current Visit: Yes Qualifiers: COPD type: emphysema Emphysema type: unspecified Qualified Code(s): J43.9 - Emphysema, unspecified (3) Amiodarone pulmonary toxicity SNOMED Code(s): 12289648 ICD Code: J98.4 - OTHER DISORDERS OF LUNG; T46.2X5A - ADVERSE EFFECT OF OTHER ANTIDYSRHYTHMIC DRUGS, INIT ENCNTR Status: Acute Current Visit: No (4) Hyponatremia SNOMED Code(s): 73704970 ICD Code: E87.1 - HYPO-OSMOLALITY AND HYPONATREMIA Status: Acute Current Visit: No (5) Palliative care status SNOMED Code(s): 050993304 ICD Code: Z51.5 - ENCOUNTER FOR PALLIATIVE CARE Status: Acute Current Visit: No (6) CHF (congestive heart failure) SNOMED Code(s): 89177764 ICD Code: I50.9 - HEART FAILURE, UNSPECIFIED Status: Chronic Current Visit: No Qualifiers: Congestive heart failure type: unspecified congestive heart failure type Congestive heart failure chronicity: acute Qualified Code(s): I50.9 - Heart failure, unspecified Problem List Initiated/Reviewed/Updated: Yes Orders Last 24hrs: Active Orders 24 hr Category Date Time Status Consult to Hospice [CONS] Routine Cons 04/17/17 09:39 Ordered CULTURE BLOOD [BC] Urgent Lab 04/16/17 09:37 Ordered CULTURE BLOOD [BC] Urgent Lab 04/16/17 09:37 Ordered INR,PT,PROTHROMBIN TIME [COAG] DAILY Lab 04/16/17 09:45 Ordered INR,PT,PROTHROMBIN TIME [COAG] DAILY Lab 04/17/17 09:45 Ordered INR,PT,PROTHROMBIN TIME [COAG] DAILY Lab 04/18/17 09:45 Ordered INR,PT,PROTHROMBIN TIME [COAG] DAILY Lab 04/19/17 09:45 Ordered INR,PT,PROTHROMBIN TIME [COAG] DAILY Lab 04/20/17 09:45 Ordered INR,PT,PROTHROMBIN TIME [COAG] DAILY Lab 04/21/17 09:45 Ordered Acetaminophen [Tylenol] Med 04/16/17 09:31 Ordered 500 mg GTUBE Q4H PRN Albuterol [Proventil Neb Soln] Med 04/16/17 09:31 Ordered 2.5 mg NEB Q2H PRN Levofloxacin [Levaquin] Med 04/16/17 09:45 Ordered 500 mg PO Q24H Loperamide [Imodium] Med 04/16/17 09:31 Ordered 10 ml GTUBE DAILY PRN Melatonin [Melatonin] Med 04/16/17 21:00 Ordered 10 mg GTUBE BEDTIME Morphine Med 04/16/17 09:35 Ordered 2 mg IVPUSH Q2H PRN Omeprazole Suspension Med 04/16/17 21:00 Ordered 20 mg GTUBE BID Sodium Chloride 0.9% @ 75 MLS/HR(1000ml) Med 04/16/17 09:45 Ordered Sodium Chloride 0.9% [Normal Saline] 1,000 ml IV ASDIRECTED Valproic Acid [Depakene Syrup] Med 04/16/17 21:00 Ordered 125 mg GTUBE BEDTIME Warfarin [Coumadin] Med 04/17/17 09:00 Ordered 3 mg GTUBE DAILY buPROPion [Wellbutrin] Med 04/17/17 09:00 Ordered 150 mg GTUBE DAILY buPROPion [Wellbutrin] Med 04/16/17 15:00 Ordered 75 mg GTUBE DAILY@1500 diphenhydrAMINE HCl [Diphenhydramine HCl] Med 04/16/17 21:00 Ordered 50 mg GTUBE BEDTIME Blood Culture x2 Reflex Set [OM.PC] Urgent Oth 04/16/17 09:37 Ordered Medication Orders Acetaminophen (Tylenol) 500 mg GTUBE Q4H PRN PRN Reason: Pain Albuterol (Proventil Neb Soln) 2.5 mg NEB Q2H PRN PRN Reason: Wheezing Bupropion HCl (Wellbutrin) 75 mg GTUBE DAILY@1500 ROBERT Bupropion HCl (Wellbutrin) 150 mg GTUBE DAILY ROBERT Levofloxacin (Levaquin) 500 mg PO Q24H ROBERT Loperamide HCl (Imodium) mg GTUBE DAILY PRN PRN Reason: Diarrhea Morphine Sulfate (Morphine) 2 mg IVPUSH Q2H PRN PRN Reason: Anxiety Non-Formulary Medication (Melatonin [Melatonin]) 10 mg GTUBE BEDTIME ROBERT Non-Formulary Medication (Omeprazole Suspension) 20 mg GTUBE BID ROBERT Non-Formulary Medication (Diphenhydramine Hcl [Diphenhydramine Hcl]) 50 mg GTUBE BEDTIME ROBERT Ondansetron HCl (Zofran) 4 mg IV Q4H PRN PRN Reason: Nausea/Vomiting Sodium Chloride (Saline Flush) 10 ml FLUSH ASDIRECTED PRN PRN Reason: Keep Vein Open Valproic Acid (Depakene Syrup) 125 mg GTUBE BEDTIME ROBERT Warfarin Sodium (Coumadin) 3 mg GTUBE DAILY ROBERT Assessment/Plan Comment:: 1. Admit the patient to medical. He is DNR/DNI 2. High-dose steroids, antibiotics and some IV Lasix. 3. Continue tube feedings as before. 4. Normal saline 70 mL an hour. 5. Bed rest and nothing by mouth. 6. Use MS for breathing anxiety. He has allergy to Ativan. 7. Daily INRs. Continue Coumadin. Pharmacy to monitor INR. 8. I spent 30 minutes with the family and the patient in regards to advanced directives and hospice. They would like hospice consult. They would like you tomorrow afternoon when a son from [facility] will be there.
[2017-04-16] MEDS ORDERED: Levofloxacin 500 MG Tab PO SCH (10:00)
[2017-04-16] MEDS: RANITIDINE 15 MG/ML PO SCH ×2 (13:21→20:56)
[2017-04-16] MEDS ORDERED: Warfarin 3 MG Tab PO SCH (16:00)
[2017-04-16] MEDS: diphenhydrAMINE 50 MG Cap GTUBE SCH (20:55)
[2017-04-16] MEDS: VALPROIC ACID 250 MG/5 ML GTUBE SCH (20:56)
[2017-04-16] MEDS ORDERED: OMEPRAZOLE 20 MG GTUBE SCH (21:00)
[2017-04-16] MEDS: Albuterol 0.083% 2.5 MG/3 ML Neb Soln NEB PRN (21:29)
[2017-04-16] MEDS: Sodium Chloride 0.9% 1,000 ML IV SCH (22:49)
[2017-04-17] MEDS ORDERED: predniSONE 20 MG Tab PO SCH (08:30)
[2017-04-17] MEDS ORDERED: predniSONE 20 MG Tab GTUBE SCH (08:37)
[2017-04-17] MEDS: Levofloxacin 500 MG Tab GTUBE SCH (08:53)
[2017-04-17] MEDS: Furosemide 20 MG Tab GTUBE SCH (08:53)
[2017-04-17] MEDS: Ranitidine 15 MG/ML Syrup ML (473 ML Bottle) GTUBE SCH ×2 (08:54→20:19)
[2017-04-17] MEDS ORDERED: Furosemide 20 MG Tab PO SCH (09:00)
[2017-04-17] MEDS ORDERED: Ranitidine 15 MG/ML Syrup ML (473 ML Bottle) PO SCH (09:00)
[2017-04-17] MEDS: predniSONE 20 MG Tab GTUBE SCH (09:07)
--- NOTE | 2017-04-17 10:36 | CR ---
INDICATION: Short of breath. CHEST: AP upright portable view of the chest 04/16/2017, was compared with and 04/09/2017, and again revealed the heart to be slightly prominent in size, allowing for poor inspiration and AP positioning. The aorta is tortuous with calcification in the arch and descending portion. Pacemaker is noted with its tip likely in the area of the apex of the right ventricle. Overlying EKG leads are noted. A definite active infiltrate or effusion was not identified no consolidating pneumonia or effusion was seen. No definite evidence of CHF is seen. However, there does appear to be some relative prominence of the pulmonary vasculature on the left, in comparison to the right, for the most part similar to the previous study, raising question of congestion there. This could be on the basis of pulmonary emboli on the right, but should be correlated clinically. MTDD
--- NOTE | 2017-04-17 10:38 | PCM.PN ---
- General Info Date of Service: 04/17/17 Admission Dx/Problem (Free Text): Patient states he is doing well. He denies shortness of breath, fevers chills or cough. He feels he is much better. No leg swelling. - Patient Data Vitals - Most Recent: Last Vital Signs Temp 97.4 F 04/17/17 00:54 Pulse 98 04/17/17 00:54 Resp 30 H 04/17/17 00:54 BP 129/80 04/17/17 00:54 Pulse Ox 97 04/17/17 06:00 Weight - Most Recent: 136 lb 14.513 oz I&O - Last 24 Hours: Intake & Output 04/16/17 04/17/17 04/17/17 22:59 06:59 14:59 Intake Total 650 500 580 Output Total 750 Balance -100 500 580 Lab Results Last 24 Hours: Laboratory Results - last 24 hr 04/17/17 04/17/17 04/17/17 Range/Units 07:10 07:10 07:10 WBC 9.8 (4.5-12.0) X10-3/uL RBC 3.10 L (4.30-5.75) x10(6)uL Hgb 10.1 L (11.5-15.5) g/dL Hct 30.4 (30.0-51.3) % MCV 98.1 H (80-96) fL MCH 32.7 (27.7-33.6) pg MCHC 33.4 (32.2-35.4) g/dL RDW 14.0 (11.5-15.5) % Plt Count 165 (125-369) X10(3)uL MPV 8.4 (7.4-10.4) fL Add Manual Diff Yes Neutrophils % (Manual) 87 H (46-82) % Lymphocytes % (Manual) 10 L (13-37) % Monocytes % (Manual) 3 L (4-12) % PT 22.9 H (8.7-11.1) INR 2.23 H (0.89-1.13) Sodium 138 (135-145) mmol/L Potassium 4.0 (3.5-5.3) mmol/L Chloride 95 L (100-110) mmol/L Carbon Dioxide 38 H (23-29) mmol/L BUN 39 H (8-23) mg/dL Creatinine 0.5 L (0.6-1.3) mg/dL Est Cr Clr Drug Dosing 94.87 mL/min Estimated GFR (MDRD) > 60 (>60) BUN/Creatinine Ratio 78.0 H (9-20) Glucose 101 (80-116) mg/dL Calcium 9.0 (8.6-10.2) mg/dL Total Bilirubin 0.8 (0.1-1.3) mg/dL AST 25 D (5-27) IU/L ALT 31 H D (14-26) IU/L Alkaline Phosphatase 68 (56-112) IU/L Total Protein 6.7 (6.0-8.0) g/dL Albumin 3.2 (3.2-4.6) g/dL Globulin 3.5 g/dL Albumin/Globulin Ratio 0.9 [place] Results Last 24 Hours: Microbiology 04/16/17 09:50 Aerobic Blood Culture - Preliminary Blood - Venous - Lab Draw NO GROWTH AFTER 1 DAY Anaerobic Blood Culture - Preliminary NO GROWTH AFTER 1 DAY Med Orders - Current: Current Medications Acetaminophen (Tylenol) 500 mg GTUBE Q4H PRN PRN Reason: Pain Albuterol (Proventil Neb Soln) 2.5 mg NEB Q2H PRN PRN Reason: Wheezing Last Admin: 04/16/17 21:29 Dose: 2.5 mg Bupropion HCl (Wellbutrin) 75 mg GTUBE DAILY@1500 ROBERT Last Admin: 04/16/17 15:40 Dose: 75 mg Bupropion HCl (Wellbutrin) 150 mg GTUBE DAILY [facility] Last Admin: 04/17/17 08:54 Dose: 150 mg Diphenhydramine HCl (Benadryl) 50 mg GTUBE BEDTIME ROBERT Last Admin: 04/16/17 20:55 Dose: 50 mg Furosemide (Lasix) 20 mg GTUBE DAILY [facility] Last Admin: 04/17/17 08:53 Dose: 20 mg Sodium Chloride (Normal Saline) 1,000 mls @ 75 mls/hr IV ASDIRECTED [facility] Last Admin: 04/16/17 22:49 Dose: 75 mls/hr Levofloxacin (Levaquin) 500 mg GTUBE Q24H ROBERT Last Admin: 04/17/17 08:53 Dose: 500 mg Loperamide HCl (Imodium) 2 mg GTUBE DAILY PRN PRN Reason: Diarrhea Melatonin (Melatonin) 10 mg GTUBE BEDTIME [facility] Last Admin: 04/16/17 20:56 Dose: 10 mg Morphine Sulfate (Morphine) 2 mg IVPUSH Q2H PRN PRN Reason: Anxiety Ondansetron HCl (Zofran) 4 mg IV Q4H PRN PRN Reason: Nausea/Vomiting Prednisone (Prednisone) 40 mg GTUBE WITHBREAKFAST [facility] Last Admin: 04/17/17 09:07 Dose: 40 mg Ranitidine HCl (Zantac) 150 mg GTUBE BID [facility] Last Admin: 04/17/17 08:54 Dose: 150 mg Sodium Chloride (Saline Flush) 10 ml FLUSH ASDIRECTED PRN PRN Reason: Keep Vein Open Valproic Acid (Depakene Syrup) 125 mg GTUBE BEDTIME [facility] Last Admin: 04/16/17 20:56 Dose: 125 mg Warfarin Sodium (Coumadin) 3 mg GTUBE DAILY@1600 [facility] Discontinued Medications Albuterol/Ipratropium (Duoneb 3.0-0.5 Mg/3 Ml) 3 ml NEB ONETIME ONE Stop: 04/16/17 06:49 Last Admin: 04/16/17 07:30 Dose: 3 ml Furosemide (Lasix) 40 mg IVPUSH NOW ONE Stop: 04/16/17 09:36 Last Admin: 04/16/17 11:29 Dose: 40 mg Furosemide (Lasix) 20 mg PO DAILY [facility] Levofloxacin (Levaquin) 500 mg PO Q24H [facility] Last Admin: 04/16/17 13:10 Dose: 500 mg Methylprednisolone Sodium Succinate (Solu-Medrol) 125 mg IVPUSH ONETIME ONE Stop: 04/16/17 06:49 Last Admin: 04/16/17 07:04 Dose: 125 mg Morphine Sulfate (Morphine) 2 mg IVPUSH ONETIME ONE Stop: 04/16/17 06:52 Last Admin: 04/16/17 07:00 Dose: 2 mg Non-Formulary Medication (Omeprazole Suspension) 20 mg GTUBE BID [facility] Prednisone (Prednisone) 40 mg PO WITHBREAKFAST [facility] Last Admin: 04/17/17 08:59 Dose: Not Given Ranitidine HCl (Zantac) 150 mg PO BID [facility] Last Admin: 04/16/17 20:56 Dose: 150 mg Ranitidine HCl (Zantac) 150 mg PO BID [facility] Warfarin Sodium (Coumadin) 3 mg PO 1600 ROBERT Last Admin: 04/17/17 00:27 Dose: Not Given Warfarin Sodium (Coumadin) 3 mg PO DAILY@1600 ROBERT Last Admin: 04/16/17 20:01 Dose: 3 mg Warfarin Sodium (Coumadin) Confirm Administered Dose 3 mg .ROUTE .STK-MED ONE Stop: 04/16/17 19:25 Last Admin: 04/16/17 23:30 Dose: Not Given - Exam General: Alert, Oriented, Cooperative Lungs: Clear to Auscultation, Normal Respiratory Effort Cardiovascular: Regular Rate, Regular Rhythm, No Murmurs Extremities: No Pedal Edema - Problem List & Annotations (1) Acute bronchitis SNOMED Code(s): 68184586 Code(s): J20.9 - ACUTE BRONCHITIS, UNSPECIFIED Status: Acute Current Visit: Yes (2) COPD (chronic obstructive pulmonary disease) SNOMED Code(s): 37723473 Code(s): J44.9 - CHRONIC OBSTRUCTIVE PULMONARY DISEASE, UNSPECIFIED Status : Acute Current Visit: Yes Qualifiers: COPD type: emphysema Emphysema type: unspecified Qualified Code(s): J43.9 - Emphysema, unspecified (3) Amiodarone pulmonary toxicity SNOMED Code(s): 04294046 Code(s): J98.4 - OTHER DISORDERS OF LUNG; T46.2X5A - ADVERSE EFFECT OF OTHER ANTIDYSRHYTHMIC DRUGS, INIT ENCNTR Status: Acute Current Visit: No (4) Hyponatremia SNOMED Code(s): 23492999 Code(s): E87.1 - HYPO-OSMOLALITY AND HYPONATREMIA Status: Acute Current Visit: No (5) Palliative care status SNOMED Code(s): 972517666 Code(s): Z51.5 - ENCOUNTER FOR PALLIATIVE CARE Status: Acute Current Visit: No (6) CHF (congestive heart failure) SNOMED Code(s): 98110538 Code(s): I50.9 - HEART FAILURE, UNSPECIFIED Status: Chronic Current Visit : No Qualifiers: Congestive heart failure type: unspecified congestive heart failure type Congestive heart failure chronicity: acute Qualified Code(s): I50.9 - Heart failure, unspecified (7) Pulmonary fibrosis SNOMED Code(s): 99931721 Code(s): J84.10 - PULMONARY FIBROSIS, UNSPECIFIED Status: Acute Current Visit: No - Problem List Review Problem List Initiated/Reviewed/Updated: Yes - My Orders Last 24 Hours: My Active Orders 04/16/17 09:45 Sodium Chloride 0.9% [Normal Saline] 1,000 ml IV ASDIRECTED 04/16/17 09:50 CULTURE BLOOD [BC] Urgent 04/16/17 15:00 buPROPion [Wellbutrin] 75 mg GTUBE DAILY@1500 04/16/17 21:00 Melatonin 10 mg GTUBE BEDTIME Valproic Acid [Depakene Syrup] 125 mg GTUBE BEDTIME diphenhydrAMINE [Benadryl] 50 mg GTUBE BEDTIME 04/17/17 08:36 Levofloxacin [Levaquin] 500 mg GTUBE Q24H 04/17/17 08:38 Warfarin [Coumadin] 3 mg GTUBE DAILY@1600 04/17/17 09:00 Furosemide [Lasix] 20 mg GTUBE DAILY Ranitidine [Zantac] 150 mg GTUBE BID buPROPion [Wellbutrin] 150 mg GTUBE DAILY predniSONE 40 mg GTUBE WITHBREAKFAST 04/17/17 09:39 Consult to Hospice [CONS] Routine 04/18/17 09:45 INR,PT,PROTHROMBIN TIME [COAG] DAILY 04/19/17 09:45 INR,PT,PROTHROMBIN TIME [COAG] DAILY 04/20/17 09:45 INR,PT,PROTHROMBIN TIME [COAG] DAILY 04/21/17 09:45 INR,PT,PROTHROMBIN TIME [COAG] DAILY - Plan Plan:: 1. Continue steroids, antibiotics and furosemide. 2. Increase ambulation. Consider PT/OT in the future. Dependence on what comes up with a hospice conversation. 3. Hospice consult today.
[2017-04-17] MEDS: Sodium Chloride 0.9% 1,000 ML IV SCH (11:35)
[2017-04-17] MEDS: Albuterol 0.083% 2.5 MG/3 ML Neb Soln NEB PRN ×3 (12:55→21:36)
[2017-04-17] MEDS: VALPROIC ACID 250 MG/5 ML GTUBE SCH (20:18)
[2017-04-17] MEDS: diphenhydrAMINE 50 MG Cap GTUBE SCH (20:50)
[2017-04-18] MEDS: Albuterol 0.083% 2.5 MG/3 ML Neb Soln NEB PRN ×2 (04:42→10:26)
--- NOTE | 2017-04-18 08:09 | PCM.PN ---
- General Info Date of Service: 04/18/17 Admission Dx/Problem (Free Text): Patient states he feels comfortable while he is in hospital bed. His mouth is dry. He denies shortness of breath, chest pain or leg swelling denies fevers or chills - Patient Data Vitals - Most Recent: Last Vital Signs Temp 98.2 F 04/18/17 07:32 Pulse 111 H 04/18/17 07:32 Resp 20 04/18/17 07:32 BP 139/85 04/18/17 07:32 Pulse Ox 94 L 04/18/17 07:32 Weight - Most Recent: 138 lb 3.2 oz I&O - Last 24 Hours: Intake & Output 04/17/17 04/18/17 04/18/17 22:59 06:59 14:59 Intake Total 1420 Balance 1420 Lab Results Last 24 Hours: Laboratory Results - last 24 hr 04/18/17 Range/Units 06:45 PT 27.6 H (8.7-11.1) INR 2.68 H (0.89-1.13) [place] Results Last 24 Hours: Microbiology 04/16/17 09:50 Aerobic Blood Culture - Preliminary Blood - Venous - Lab Draw NO GROWTH AFTER 1 DAY Anaerobic Blood Culture - Preliminary NO GROWTH AFTER 1 DAY Med Orders - Current: Current Medications Acetaminophen (Tylenol) 500 mg GTUBE Q4H PRN PRN Reason: Pain Albuterol (Proventil Neb Soln) 2.5 mg NEB Q2H PRN PRN Reason: Wheezing Last Admin: 04/18/17 04:42 Dose: 2.5 mg Bupropion HCl (Wellbutrin) 75 mg GTUBE DAILY@1500 [facility] Last Admin: 04/17/17 15:40 Dose: 75 mg Bupropion HCl (Wellbutrin) 150 mg GTUBE DAILY [facility] Last Admin: 04/17/17 08:54 Dose: 150 mg Diphenhydramine HCl (Benadryl) 50 mg GTUBE BEDTIME [facility] Last Admin: 04/17/17 20:50 Dose: 50 mg Furosemide (Lasix) 20 mg GTUBE DAILY [facility] Last Admin: 04/17/17 08:53 Dose: 20 mg Levofloxacin (Levaquin) 500 mg GTUBE Q24H [facility] Last Admin: 04/17/17 08:53 Dose: 500 mg Loperamide HCl (Imodium) 2 mg GTUBE DAILY PRN PRN Reason: Diarrhea Melatonin (Melatonin) 10 mg GTUBE BEDTIME [facility] Last Admin: 04/17/17 20:18 Dose: 10 mg Morphine Sulfate (Morphine) 2 mg IVPUSH Q2H PRN PRN Reason: Anxiety Ondansetron HCl (Zofran) 4 mg IV Q4H PRN PRN Reason: Nausea/Vomiting Prednisone (Prednisone) 40 mg GTUBE WITHBREAKFAST [facility] Last Admin: 04/17/17 09:07 Dose: 40 mg Ranitidine HCl (Zantac) 150 mg GTUBE BID [facility] Last Admin: 04/17/17 20:19 Dose: 150 mg Sodium Chloride (Saline Flush) 10 ml FLUSH ASDIRECTED PRN PRN Reason: Keep Vein Open Valproic Acid (Depakene Syrup) 125 mg GTUBE BEDTIME [facility] Last Admin: 04/17/17 20:18 Dose: 125 mg Warfarin Sodium (Coumadin) 3 mg GTUBE DAILY@1600 [facility] Last Admin: 04/17/17 16:00 Dose: 3 mg Discontinued Medications Albuterol/Ipratropium (Duoneb 3.0-0.5 Mg/3 Ml) 3 ml NEB ONETIME ONE Stop: 04/16/17 06:49 Last Admin: 04/16/17 07:30 Dose: 3 ml Furosemide (Lasix) 40 mg IVPUSH NOW ONE Stop: 04/16/17 09:36 Last Admin: 04/16/17 11:29 Dose: 40 mg Furosemide (Lasix) 20 mg PO DAILY [facility] Sodium Chloride (Normal Saline) 1,000 mls @ 75 mls/hr IV ASDIRECTED [facility] Last Admin: 04/17/17 11:35 Dose: 75 mls/hr Levofloxacin (Levaquin) 500 mg PO Q24H [facility] Last Admin: 04/16/17 13:10 Dose: 500 mg Methylprednisolone Sodium Succinate (Solu-Medrol) 125 mg IVPUSH ONETIME ONE Stop: 04/16/17 06:49 Last Admin: 04/16/17 07:04 Dose: 125 mg Morphine Sulfate (Morphine) 2 mg IVPUSH ONETIME ONE Stop: 04/16/17 06:52 Last Admin: 04/16/17 07:00 Dose: 2 mg Non-Formulary Medication (Omeprazole Suspension) 20 mg GTUBE BID [facility] Prednisone (Prednisone) 40 mg PO WITHBREAKFAST [facility] Last Admin: 04/17/17 08:59 Dose: Not Given Ranitidine HCl (Zantac) 150 mg PO BID [facility] Last Admin: 04/16/17 20:56 Dose: 150 mg Ranitidine HCl (Zantac) 150 mg PO BID [facility] Warfarin Sodium (Coumadin) 3 mg PO 1600 [facility] Last Admin: 04/17/17 00:27 Dose: Not Given Warfarin Sodium (Coumadin) 3 mg PO DAILY@1600 [facility] Last Admin: 04/16/17 20:01 Dose: 3 mg Warfarin Sodium (Coumadin) Confirm Administered Dose 3 mg .ROUTE .[employer]-MED ONE Stop: 04/16/17 19:25 Last Admin: 04/16/17 23:30 Dose: Not Given - Exam General: Alert, Oriented, Cooperative Lungs: Clear to Auscultation, Normal Respiratory Effort Cardiovascular: Regular Rate, Regular Rhythm, No Murmurs Extremities: No Pedal Edema - Problem List & Annotations (1) Acute bronchitis SNOMED Code(s): 47544176 Code(s): J20.9 - ACUTE BRONCHITIS, UNSPECIFIED Status: Acute Current Visit: Yes (2) COPD (chronic obstructive pulmonary disease) SNOMED Code(s): 63905844 Code(s): J44.9 - CHRONIC OBSTRUCTIVE PULMONARY DISEASE, UNSPECIFIED Status : Acute Current Visit: Yes Qualifiers: COPD type: emphysema Emphysema type: unspecified Qualified Code(s): J43.9 - Emphysema, unspecified (3) Amiodarone pulmonary toxicity SNOMED Code(s): 84534299 Code(s): J98.4 - OTHER DISORDERS OF LUNG; T46.2X5A - ADVERSE EFFECT OF OTHER ANTIDYSRHYTHMIC DRUGS, INIT ENCNTR Status: Acute Current Visit: No (4) Hyponatremia SNOMED Code(s): 69112850 Code(s): E87.1 - HYPO-OSMOLALITY AND HYPONATREMIA Status: Acute Current Visit: No (5) Palliative care status SNOMED Code(s): 160632094 Code(s): Z51.5 - ENCOUNTER FOR PALLIATIVE CARE Status: Acute Current Visit: No (6) CHF (congestive heart failure) SNOMED Code(s): 99072752 Code(s): I50.9 - HEART FAILURE, UNSPECIFIED Status: Chronic Current Visit : No Qualifiers: Congestive heart failure type: unspecified congestive heart failure type Congestive heart failure chronicity: acute Qualified Code(s): I50.9 - Heart failure, unspecified (7) Pulmonary fibrosis SNOMED Code(s): 65699880 Code(s): J84.10 - PULMONARY FIBROSIS, UNSPECIFIED Status: Acute Current Visit: No - Problem List Review Problem List Initiated/Reviewed/Updated: Yes - My Orders Last 24 Hours: My Active Orders 04/17/17 08:36 Levofloxacin [Levaquin] 500 mg GTUBE Q24H 04/17/17 08:38 Warfarin [Coumadin] 3 mg GTUBE DAILY@1600 04/17/17 09:00 Furosemide [Lasix] 20 mg GTUBE DAILY Ranitidine [Zantac] 150 mg GTUBE BID buPROPion [Wellbutrin] 150 mg GTUBE DAILY predniSONE 40 mg GTUBE WITHBREAKFAST 04/17/17 09:39 Consult to Hospice [CONS] Routine 04/17/17 18:09 Consult to Occupational Therapy [OT Evaluation and Treatment] [CONS] Routine Consult to Physical Therapy [PT Evaluation and Treatment] [CONS] Routine Convert IV to Saline Lock [OM.PC] Routine 04/19/17 09:45 INR,PT,PROTHROMBIN TIME [COAG] DAILY 04/20/17 09:45 INR,PT,PROTHROMBIN TIME [COAG] DAILY 04/21/17 09:45 INR,PT,PROTHROMBIN TIME [COAG] DAILY - Plan Plan:: Hospice met with the patient last night. They're deciding [facility] at this time versus skilled nursing. Social service to work with the family and patient today.
[2017-04-18] MEDS: predniSONE 20 MG Tab GTUBE SCH (08:13)
[2017-04-18] MEDS: Levofloxacin 500 MG Tab GTUBE SCH (08:13)
[2017-04-18] MEDS: Furosemide 20 MG Tab GTUBE SCH (08:14)
[2017-04-18] MEDS: Ranitidine 15 MG/ML Syrup ML (473 ML Bottle) GTUBE SCH ×2 (08:14→20:32)
[2017-04-18] MEDS: diphenhydrAMINE 50 MG Cap GTUBE SCH (20:30)
[2017-04-18] MEDS: VALPROIC ACID 250 MG/5 ML GTUBE SCH (20:30)
[2017-04-18] MEDS: cycloSPORINE Ophth Drops U/D Box of 30 EYEBOTH SCH (20:31)
[2017-04-19] MEDS: Albuterol 0.083% 2.5 MG/3 ML Neb Soln NEB PRN (02:53)
--- NOTE | 2017-04-19 06:58 | PCM.PN ---
- General Info Date of Service: 04/19/17 Admission Dx/Problem (Free Text): Patient doing well. Says his breathing is doing well. Denies chest pain, shortness breath, cough, fevers, leg swelling. - Patient Data Vitals - Most Recent: Last Vital Signs Temp 97.8 F 04/19/17 03:15 Pulse 97 04/19/17 03:15 Resp 22 H 04/19/17 03:15 BP 147/78 H 04/19/17 00:25 Pulse Ox 97 04/19/17 03:15 Weight - Most Recent: 138 lb 3.2 oz I&O - Last 24 Hours: Intake & Output 04/18/17 04/18/17 04/19/17 14:59 22:59 06:59 Intake Total 1160 1160 Balance 1160 1160 Lab Results Last 24 Hours: Laboratory Results - last 24 hr 04/18/17 Range/Units 06:45 PT 27.6 H (8.7-11.1) INR 2.68 H (0.89-1.13) [place] Results Last 24 Hours: Microbiology 04/16/17 09:50 Aerobic Blood Culture - Preliminary Blood - Venous - Lab Draw NO GROWTH AFTER 2 DAYS Anaerobic Blood Culture - Preliminary NO GROWTH AFTER 2 DAYS Med Orders - Current: Current Medications Acetaminophen (Tylenol) 500 mg GTUBE Q4H PRN PRN Reason: Pain Albuterol (Proventil Neb Soln) 2.5 mg NEB Q2H PRN PRN Reason: Wheezing Last Admin: 04/19/17 02:53 Dose: 2.5 mg Bupropion HCl (Wellbutrin) 75 mg GTUBE DAILY@1500 [facility] Last Admin: 04/18/17 14:23 Dose: 75 mg Bupropion HCl (Wellbutrin) 150 mg GTUBE DAILY [facility] Last Admin: 04/18/17 08:14 Dose: 150 mg Cyclosporine (Restasis) 0 each EYEBOTH BID [facility] Last Admin: 04/18/17 20:31 Dose: 1 drop Diphenhydramine HCl (Benadryl) 50 mg GTUBE BEDTIME [facility] Last Admin: 04/18/17 20:30 Dose: 50 mg Furosemide (Lasix) 20 mg GTUBE DAILY [facility] Last Admin: 04/18/17 08:14 Dose: 20 mg Levofloxacin (Levaquin) 500 mg GTUBE Q24H [facility] Last Admin: 04/18/17 08:13 Dose: 500 mg Loperamide HCl (Imodium) 2 mg GTUBE DAILY PRN PRN Reason: Diarrhea Melatonin (Melatonin) 10 mg GTUBE BEDTIME [facility] Last Admin: 04/18/17 20:31 Dose: 10 mg Morphine Sulfate (Morphine) 2 mg IVPUSH Q2H PRN PRN Reason: Anxiety Ondansetron HCl (Zofran) 4 mg IV Q4H PRN PRN Reason: Nausea/Vomiting Prednisone (Prednisone) 40 mg GTUBE WITHBREAKFAST [facility] Last Admin: 04/18/17 08:13 Dose: 40 mg Ranitidine HCl (Zantac) 150 mg GTUBE BID [facility] Last Admin: 04/18/17 20:32 Dose: 150 mg Sodium Chloride (Saline Flush) 10 ml FLUSH ASDIRECTED PRN PRN Reason: Keep Vein Open Valproic Acid (Depakene Syrup) 125 mg GTUBE BEDTIME [facility] Last Admin: 04/18/17 20:30 Dose: 125 mg Warfarin Sodium (Coumadin) 3 mg GTUBE DAILY@1600 [facility] Last Admin: 04/18/17 16:36 Dose: 3 mg Discontinued Medications Albuterol/Ipratropium (Duoneb 3.0-0.5 Mg/3 Ml) 3 ml NEB ONETIME ONE Stop: 04/16/17 06:49 Last Admin: 04/16/17 07:30 Dose: 3 ml Furosemide (Lasix) 40 mg IVPUSH NOW ONE Stop: 04/16/17 09:36 Last Admin: 04/16/17 11:29 Dose: 40 mg Furosemide (Lasix) 20 mg PO DAILY [facility] Sodium Chloride (Normal Saline) 1,000 mls @ 75 mls/hr IV ASDIRECTED [facility] Last Admin: 04/17/17 11:35 Dose: 75 mls/hr Levofloxacin (Levaquin) 500 mg PO Q24H [facility] Last Admin: 04/16/17 13:10 Dose: 500 mg Methylprednisolone Sodium Succinate (Solu-Medrol) 125 mg IVPUSH ONETIME ONE Stop: 04/16/17 06:49 Last Admin: 04/16/17 07:04 Dose: 125 mg Morphine Sulfate (Morphine) 2 mg IVPUSH ONETIME ONE Stop: 04/16/17 06:52 Last Admin: 04/16/17 07:00 Dose: 2 mg Non-Formulary Medication (Omeprazole Suspension) 20 mg GTUBE BID [facility] Prednisone (Prednisone) 40 mg PO WITHBREAKFAST [facility] Last Admin: 04/17/17 08:59 Dose: Not Given Ranitidine HCl (Zantac) 150 mg PO BID [facility] Last Admin: 04/16/17 20:56 Dose: 150 mg Ranitidine HCl (Zantac) 150 mg PO BID [facility] Warfarin Sodium (Coumadin) 3 mg PO 1600 [facility] Last Admin: 04/17/17 00:27 Dose: Not Given Warfarin Sodium (Coumadin) 3 mg PO DAILY@1600 [facility] Last Admin: 04/16/17 20:01 Dose: 3 mg Warfarin Sodium (Coumadin) Confirm Administered Dose 3 mg .ROUTE .ST-MED ONE Stop: 04/16/17 19:25 Last Admin: 04/16/17 23:30 Dose: Not Given - Exam General: Alert, Oriented, Cooperative Neck: Supple Lungs: Clear to Auscultation, Normal Respiratory Effort, Crackles Cardiovascular: Regular Rate, Regular Rhythm, No Murmurs - Problem List & Annotations (1) Acute bronchitis SNOMED Code(s): 16654356 Code(s): J20.9 - ACUTE BRONCHITIS, UNSPECIFIED Status: Acute Current Visit: Yes (2) COPD (chronic obstructive pulmonary disease) SNOMED Code(s): 85840803 Code(s): J44.9 - CHRONIC OBSTRUCTIVE PULMONARY DISEASE, UNSPECIFIED Status : Acute Current Visit: Yes Qualifiers: COPD type: emphysema Emphysema type: unspecified Qualified Code(s): J43.9 - Emphysema, unspecified (3) Amiodarone pulmonary toxicity SNOMED Code(s): 81294370 Code(s): J98.4 - OTHER DISORDERS OF LUNG; T46.2X5A - ADVERSE EFFECT OF OTHER ANTIDYSRHYTHMIC DRUGS, INIT ENCNTR Status: Acute Current Visit: No (4) Hyponatremia SNOMED Code(s): 63163293 Code(s): E87.1 - HYPO-OSMOLALITY AND HYPONATREMIA Status: Acute Current Visit: No (5) Palliative care status SNOMED Code(s): 845347733 Code(s): Z51.5 - ENCOUNTER FOR PALLIATIVE CARE Status: Acute Current Visit: No (6) CHF (congestive heart failure) SNOMED Code(s): 12683495 Code(s): I50.9 - HEART FAILURE, UNSPECIFIED Status: Chronic Current Visit : No Qualifiers: Congestive heart failure type: unspecified congestive heart failure type Congestive heart failure chronicity: acute Qualified Code(s): I50.9 - Heart failure, unspecified (7) Pulmonary fibrosis SNOMED Code(s): 68269537 Code(s): J84.10 - PULMONARY FIBROSIS, UNSPECIFIED Status: Acute Current Visit: No - Problem List Review Problem List Initiated/Reviewed/Updated: Yes - My Orders Last 24 Hours: My Active Orders 04/18/17 21:00 cycloSPORINE [Restasis] 0 each EYEBOTH BID 04/19/17 09:45 INR,PT,PROTHROMBIN TIME [COAG] DAILY 04/20/17 09:45 INR,PT,PROTHROMBIN TIME [COAG] DAILY 04/21/17 09:45 INR,PT,PROTHROMBIN TIME [COAG] DAILY - Plan Plan:: Discharge to home on tapering steroids, antibiotics, hospice, hospital bed.
--- NOTE | 2017-04-19 07:58 | PCM.DCSUM1 ---
Discharge Summary - Hospital Course Free Text/Narrative:: Hospital course-patient was given Levaquin for his bronchitis steroids and little bit more Lasix. By the next day the patient was much improved. At admission discussed with him and his family about hospice care deteriorating deteriorating condition. Patient felt much better and his hospital bed and had no breathing difficulties. His lungs cleared up even though he had a little bit of rails but that disappeared. And we had rn social services and hospice consult. After a day of deliberation with him his family he decided to go home in a hospital bed on hospice. We'll discharged him home on his regular medications and tube feedings with hospice and a hospital bed. Brief History: This is an 86-year-old male patient lives in [place] with his . He's had a steady decline in his health since October. 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 He had defibrillator placed. They state when he was intubated that after that he could not swallow foods we had a PEG tube placed is begin tube feedings. He was in the hospital for COPD recently and sent home. Last 4 days he's been sitting up in a elevated bed, shortness of breath and feels like he is suffocating. He said cough with some brown green sputum for a month. No fevers, chills no chest pain. Sent leg swelling in the past but not recently. Feels better when he is sits upright. - Discharge Data Discharge Date: 04/19/17 Discharge Disposition: DC/Tfer to Hospice - Home 51 Condition: Poor - Discharge Diagnosis/Problem(s) (1) Acute bronchitis SNOMED Code(s): 95239613 ICD Code: J20.9 - ACUTE BRONCHITIS, UNSPECIFIED Status: Acute Current Visit: Yes (2) COPD (chronic obstructive pulmonary disease) SNOMED Code(s): 17717909 ICD Code: J44.9 - CHRONIC OBSTRUCTIVE PULMONARY DISEASE, UNSPECIFIED Status : Acute Current Visit: Yes Qualifiers: COPD type: emphysema Emphysema type: unspecified Qualified Code(s): J43.9 - Emphysema, unspecified (3) Amiodarone pulmonary toxicity SNOMED Code(s): 76544469 ICD Code: J98.4 - OTHER DISORDERS OF LUNG; T46.2X5A - ADVERSE EFFECT OF OTHER ANTIDYSRHYTHMIC DRUGS, INIT ENCNTR Status: Acute Current Visit: No (4) Hyponatremia SNOMED Code(s): 85444612 ICD Code: E87.1 - HYPO-OSMOLALITY AND HYPONATREMIA Status: Acute Current Visit: No (5) Palliative care status SNOMED Code(s): 607290311 ICD Code: Z51.5 - ENCOUNTER FOR PALLIATIVE CARE Status: Acute Current Visit: No (6) CHF (congestive heart failure) SNOMED Code(s): 98450472 ICD Code: I50.9 - HEART FAILURE, UNSPECIFIED Status: Chronic Current Visit: No Qualifiers: Congestive heart failure type: unspecified congestive heart failure type Congestive heart failure chronicity: acute Qualified Code(s): I50.9 - Heart failure, unspecified (7) Pulmonary fibrosis SNOMED Code(s): 69625786 ICD Code: J84.10 - PULMONARY FIBROSIS, UNSPECIFIED Status: Acute Current Visit: No - Patient Summary/Data Consults: Consultations 04/17/17 09:39 Consult to Hospice [CONS] Routine Comment: Physician Instructions: 04/17/17 18:09 Consult to Occupational Therapy [OT Evaluation and Treatment] [CONS] Routine Please Evaluate and Treat. OT Reason for Consult: Strengthening This query below is only for informational purposes and is not editable. Admission Diagnosis/Problem: COPD, Moderate chronic obstructive pulmonary disease Consult to Physical Therapy [PT Evaluation and Treatment] [CONS] Routine Please Evaluate and Treat. PT Reason for Consult: Strengthening This query below is only for informational purposes and is not editable. Admission Diagnosis/Problem: COPD, Moderate chronic obstructive pulmonary disease - Patient Instructions Diet: Regular Diet as Tolerated Activity: As Tolerated Driving: Do Not Drive Showering/Bathing: May Shower Other/Special Instructions: 1. Home with hospice. Consult already done. 2. Recheck with Dr. Saha 7-10 days depending on how family and hospice feels about follow-up. 3. Hospital bed - Discharge Plan Prescriptions/Med Rec: Levofloxacin [Levaquin] 500 mg PO Q24H #7 tablet Home Medications: Home Meds Phytonadione [Vitamin K] 100 mcg GTUBE DAILY 12/05/16 [History] Valproic Acid [Depakene Syrup] 125 mg GTUBE BEDTIME #75 ml 12/22/16 [Rx] Loperamide [Imodium] 10 ml GTUBE DAILY PRN 12/31/16 [History] predniSONE [predniSONE 5 MG/5 ML] 10 mg GTUBE DAILY 04/09/17 [History] Melatonin 10 mg GTUBE BEDTIME 04/10/17 [History] buPROPion [Wellbutrin] 75 mg GTUBE DAILY@1500 04/10/17 [History] buPROPion [Wellbutrin] 150 mg GTUBE DAILY 04/10/17 [History] diphenhydrAMINE HCl [Diphenhydramine HCl] 50 mg GTUBE BEDTIME 04/10/17 [History] Acetaminophen [Tylenol] 500 mg GTUBE Q4H PRN #0 cup 04/11/17 [Rx] Albuterol [IJD: Albuterol] 2.5 mg NEB Q2H PRN #0 nebule 04/11/17 [Rx] Furosemide [Lasix Oral Soln] 20 mg GTUBE BID ml 04/11/17 [Rx] Cyanocobalamin (Vitamin B-12) [Vitamin B-12] 1,000 mcg PO DAILY 04/16/17 [ History] Ranitidine [Zantac] 150 mg PO BID 04/16/17 [History] Warfarin Sodium [Jantoven] 3 mg PO DAILY 04/16/17 [History] Warfarin Sodium [Jantoven] 4 mg PO FR 04/16/17 [History] cycloSPORINE [Restasis] 1 drop EYEBOTH BID 04/18/17 [History] Levofloxacin [Levaquin] 500 mg PO Q24H #7 tablet 04/19/17 [Rx] Forms: ED Department Discharge Referrals: Darci Saha MD [Primary Care Provider] - - Discharge Summary/Plan Comment DC Time >30 min.: No - Patient Data Vitals - Most Recent: Last Vital Signs Temp 97.8 F 04/19/17 03:15 Pulse 97 04/19/17 03:15 Resp 22 H 04/19/17 03:15 BP 147/78 H 04/19/17 00:25 Pulse Ox 97 04/19/17 03:15 Weight - Most Recent: 138 lb 3.2 oz I&O - Last 24 hours: Intake & Output 04/18/17 04/19/17 04/19/17 22:59 06:59 14:59 Intake Total 1160 Balance 1160 Lab Results - Last 24 hrs: Laboratory Results - last 24 hr 04/19/17 Range/Units 06:51 PT 27.7 H (8.7-11.1) INR 2.69 H (0.89-1.13) [facility] Results - Last 24 hrs: Microbiology 04/16/17 09:50 Aerobic Blood Culture - Preliminary Blood - Venous - Lab Draw NO GROWTH AFTER 2 DAYS Anaerobic Blood Culture - Preliminary NO GROWTH AFTER 2 DAYS Med Orders - Current: Current Medications Acetaminophen (Tylenol) 500 mg GTUBE Q4H PRN PRN Reason: Pain Albuterol (Proventil Neb Soln) 2.5 mg NEB Q2H PRN PRN Reason: Wheezing Last Admin: 04/19/17 02:53 Dose: 2.5 mg Bupropion HCl (Wellbutrin) 75 mg GTUBE DAILY@1500 [facility] Last Admin: 04/18/17 14:23 Dose: 75 mg Bupropion HCl (Wellbutrin) 150 mg GTUBE DAILY [facility] Last Admin: 04/18/17 08:14 Dose: 150 mg Cyclosporine (Restasis) 0 each EYEBOTH BID [facility] Last Admin: 04/18/17 20:31 Dose: 1 drop Diphenhydramine HCl (Benadryl) 50 mg GTUBE BEDTIME [facility] Last Admin: 04/18/17 20:30 Dose: 50 mg Furosemide (Lasix) 20 mg GTUBE DAILY [facility] Last Admin: 04/18/17 08:14 Dose: 20 mg Levofloxacin (Levaquin) 500 mg GTUBE Q24H [facility] Last Admin: 04/18/17 08:13 Dose: 500 mg Loperamide HCl (Imodium) 2 mg GTUBE DAILY PRN PRN Reason: Diarrhea Melatonin (Melatonin) 10 mg GTUBE BEDTIME [facility] Last Admin: 04/18/17 20:31 Dose: 10 mg Morphine Sulfate (Morphine) 2 mg IVPUSH Q2H PRN PRN Reason: Anxiety Ondansetron HCl (Zofran) 4 mg IV Q4H PRN PRN Reason: Nausea/Vomiting Prednisone (Prednisone) 40 mg GTUBE WITHBREAKFAST [facility] Last Admin: 04/18/17 08:13 Dose: 40 mg Ranitidine HCl (Zantac) 150 mg GTUBE BID [facility] Last Admin: 04/18/17 20:32 Dose: 150 mg Sodium Chloride (Saline Flush) 10 ml FLUSH ASDIRECTED PRN PRN Reason: Keep Vein Open Valproic Acid (Depakene Syrup) 125 mg GTUBE BEDTIME [facility] Last Admin: 04/18/17 20:30 Dose: 125 mg Warfarin Sodium (Coumadin) 3 mg GTUBE DAILY@1600 [facility] Last Admin: 04/18/17 16:36 Dose: 3 mg Discontinued Medications Albuterol/Ipratropium (Duoneb 3.0-0.5 Mg/3 Ml) 3 ml NEB ONETIME ONE Stop: 04/16/17 06:49 Last Admin: 04/16/17 07:30 Dose: 3 ml Furosemide (Lasix) 40 mg IVPUSH NOW ONE Stop: 04/16/17 09:36 Last Admin: 04/16/17 11:29 Dose: 40 mg Furosemide (Lasix) 20 mg PO DAILY [facility] Sodium Chloride (Normal Saline) 1,000 mls @ 75 mls/hr IV ASDIRECTED [facility] Last Admin: 04/17/17 11:35 Dose: 75 mls/hr Levofloxacin (Levaquin) 500 mg PO Q24H [facility] Last Admin: 04/16/17 13:10 Dose: 500 mg Methylprednisolone Sodium Succinate (Solu-Medrol) 125 mg IVPUSH ONETIME ONE Stop: 04/16/17 06:49 Last Admin: 04/16/17 07:04 Dose: 125 mg Morphine Sulfate (Morphine) 2 mg IVPUSH ONETIME ONE Stop: 04/16/17 06:52 Last Admin: 04/16/17 07:00 Dose: 2 mg Non-Formulary Medication (Omeprazole Suspension) 20 mg GTUBE BID [facility] Prednisone (Prednisone) 40 mg PO WITHBREAKFAST [facility] Last Admin: 04/17/17 08:59 Dose: Not Given Ranitidine HCl (Zantac) 150 mg PO BID [facility] Last Admin: 04/16/17 20:56 Dose: 150 mg Ranitidine HCl (Zantac) 150 mg PO BID [facility] Warfarin Sodium (Coumadin) 3 mg PO 1600 [facility] Last Admin: 04/17/17 00:27 Dose: Not Given Warfarin Sodium (Coumadin) 3 mg PO DAILY@1600 [facility] Last Admin: 04/16/17 20:01 Dose: 3 mg Warfarin Sodium (Coumadin) Confirm Administered Dose 3 mg .ROUTE .STK-MED ONE Stop: 04/16/17 19:25 Last Admin: 04/16/17 23:30 Dose: Not Given *Q Meaningful Use (DIS) - VTE *Q VTE Criteria *Q: - Stroke *Q Stroke Criteria *Q: - AMI *Q AMI Criteria *Q:
[2017-04-19] MEDS: cycloSPORINE Ophth Drops U/D Box of 30 EYEBOTH SCH (08:07)
[2017-04-19] MEDS: Levofloxacin 500 MG Tab GTUBE SCH (08:07)
[2017-04-19] MEDS: Furosemide 20 MG Tab GTUBE SCH (08:07)
[2017-04-19] MEDS: predniSONE 20 MG Tab GTUBE SCH (08:07)
[2017-04-19] MEDS: Ranitidine 15 MG/ML Syrup ML (473 ML Bottle) GTUBE SCH (08:08)
[2017-04-19 09:34] VITALS: BP 150/94
== END 2017-04-19 10:45 | disposition hospice, home (50) | DRG 191 ==
LOC: FB.ED 06:30 → FB.MS 07:56
PROVIDERS: ADMIT Family Medicine; ATTEND Family Medicine
DX: J44.0 Chronic obstructive pulmonary disease with (acute) lower respiratory infection (principal); E87.1 Hypo-osmolality and hyponatremia; J20.9 Acute bronchitis, unspecified; I11.0 Hypertensive heart disease with heart failure; I50.9 Heart failure, unspecified; Z66 Do not resuscitate; K22.0 Achalasia of cardia; G40.909 Epilepsy, unspecified, not intractable, without status epilepticus; Z93.1 Gastrostomy status; Z87.891 Personal history of nicotine dependence; Z51.5 Encounter for palliative care; J84.10 Pulmonary fibrosis, unspecified; T46.2X5D Adverse effect of other antidysrhythmic drugs, subsequent encounter; Z86.74 Personal history of sudden cardiac arrest; I48.91 Unspecified atrial fibrillation; Z79.01 Long term (current) use of anticoagulants; Z79.52 Long term (current) use of systemic steroids; F32.9 Major depressive disorder, single episode, unspecified; K21.9 Gastro-esophageal reflux disease without esophagitis; Z95.0 Presence of cardiac pacemaker; H91.90 Unspecified hearing loss, unspecified ear; Z88.2 Allergy status to sulfonamides; Z88.8 Allergy status to other drugs, medicaments and biological substances
CPT/HCPCS: 36415; 36600; 71010; 80048; 82550; 82803; 83605; 83880; 84484; 85025; 85610; 87040; 93005; 94664; 96374; 96375; 99285; J2270; J2930; J7620; 80053; 94640-76; A9270-GY; J1940; J7040